=== PATIENT | male | born 1935 | race Caucasian/White ===

== ENCOUNTER 2016-11-22 17:59 | Emergency (ER) | payer MEDICARE ==
[2016-11-22] MEDS ORDERED: Acetaminophen 325 MG Tab PO ONE (18:56)
[2016-11-22] MEDS ORDERED: Sodium Chloride 0.9% 1,000 ML IV ONE (18:57)
[2016-11-22 19:41] LABS: CHLORIDE,CL 102 mmol/L (101-111); SODIUM,NA 135 mmol/L (135-145)
[2016-11-22] MEDS ORDERED: Piperacillin/Tazobactam 3.375 GM in Sodium Chloride 0.9% 100 ML IV ONE (20:01)
[2016-11-22] MEDS ORDERED: Furosemide 40 MG/4 ML VIAL IVPUSH ONE (20:01)
--- NOTE | 2016-11-22 22:11 | EDM.PDOC ---
ED HPI GENERAL MEDICAL PROBLEM - General Chief Complaint: Lower Extremity Injury/Pain Stated Complaint: COMING BY AMBULANCE Time Seen by Provider: 11/22/16 19:15 Source of Information: Reports: Patient, EMS, Family History Limitations: Reports: No Limitations - History of Present Illness INITIAL COMMENTS - FREE TEXT/NARRATIVE: c/o pain to right lower leg with increased swelling and redness. notes increase in size in area where sccraped bauer last week. Patient unable to get out of chair by himself due to pain and weakness. Temp 103.1 on admission to ED recheck and increase to 104. EMS noted unkempt conditions in home. Patient c/o cough earlier with chest pain, No pain on admission. Cough productive, yellow phlegm. Duration: Day(s): Location: Reports: Lower Extremity, Right Right Leg Pain Score (Numeric/FACES): 5 - Related Data Allergies Allergy/AdvReac Type Severity Reaction Status Date / Time No Known Allergies Allergy Verified 11/22/16 18:19 Home Meds: Home Meds Doxazosin [Cardura] 1 tab PO DAILY 09/01/14 [History] azaTHIOprine [Azathioprine] 2 tab PO DAILY 09/01/14 [History] Calcium Carbonate [Calcium] 600 mg PO BID 09/18/14 [History] Desmopressin 0.2 mg PO BEDTIME 09/18/14 [History] Multivitamin [Multivitamins] 1 each PO DAILY 09/18/14 [History] Metoprolol Tartrate [Lopressor] 25 mg PO Q12HR #60 tablet 09/19/14 [Rx] Furosemide 20 mg PO Q48H 11/22/16 [History] Warfarin Sodium [Jantoven] 1.5 tab PO ASDIRECTED 11/22/16 [History] Warfarin Sodium [Jantoven] 6 mg PO ASDIRECTED 11/22/16 [History] Past Medical History Cardiovascular History: Reports: Afib Gastrointestinal History: Reports: Cholelithiasis Other Gastrointestinal History: autoimmune hepatitis Other Genitourinary History: BPH Other Musculoskeletal History: DJD Other Hematologic History: Low platelets Other Immunologic History: autoimmune hepatitis - Past Surgical History GI Surgical History: Reports: Cholecystectomy Social & Family History - Tobacco Use Smoking Status *Q: Never Smoker Years of Tobacco use: 10 Used Tobacco, but Quit: Yes Month Tobacco Last Used: 04/18/1964 Second Hand Smoke Exposure: No - Caffeine Use Caffeine Use: Reports: Coffee, Soda - Alcohol Use Days Per Week of Alcohol Use: 0 - Recreational Drug Use Recreational Drug Use: No - Living Situation & Occupation Living situation: Reports: , with Spouse, with Family Occupation: Retired Review of Systems - Review of Systems Review Of Systems: See Below Constitutional: Reports: Fever Eyes: Reports: No Symptoms Ears: Reports: No Symptoms Nose: Reports: No Symptoms Mouth/Throat: Reports: No Symptoms Respiratory: Reports: Cough, Sputum. Denies: Shortness of Breath Cardiovascular: Reports: Chest Pain (with cough), Irregular Heart Rate (chronic) GI/Abdominal: Reports: No Symptoms Genitourinary: Reports: Incontinence (chronic) Musculoskeletal: Reports: Leg Pain Skin: Reports: Erythema, Wound Neurological: Reports: No Symptoms ED EXAM, GENERAL - Physical Exam Exam: See Below Exam Limited By: No Limitations General Appearance: Alert, Mild Distress, Obese, Other (clothing dirty, poor grooming) Eye Exam: Bilateral Eye: EOMI Ears: Normal External Exam Nose: Normal Inspection Throat/Mouth: Normal Inspection Head: Atraumatic, Normocephalic Respiratory/Chest: Decreased Breath Sounds (right), Crackles (left base). No: Wheezing, Accessory Muscle Use Cardiovascular: Irregularly Irregular GI/Abdominal: Normal Bowel Sounds Back Exam: Normal Inspection Extremities: Pedal Edema (bilateral 2+ doughy to knee on left lower extremity, right 3+ red anterio ankle to knee central pustular wound to bauer. Culture obtained, thick green brown purulent fluid. ), Leg Pain Neurological: Alert, Oriented, Normal Cognition Psychiatric: Flat Affect Skin Exam: Warm, Erythema, Wound/Incision Course - Vital Signs Last Recorded V/S: Last Vital Signs Temp 99.5 F 11/22/16 22:12 Pulse 111 H 11/22/16 22:12 Resp 15 11/22/16 22:12 BP 110/66 11/22/16 22:12 Pulse Ox 95 11/22/16 22:12 - Orders/Labs/Meds Orders: Active Orders 24 hr Category Date Time Status EKG Documentation Completion [RC] URGENT Care 11/22/16 19:04 Active CULTURE BLOOD [BC] Stat Lab 11/22/16 19:05 Received CULTURE BLOOD [BC] Stat Lab 11/22/16 19:15 Received CULTURE WOUND [RM] Stat Lab 11/22/16 19:00 Received Blood Culture x2 Reflex Set [OM.PC] Stat Oth 11/22/16 18:55 Ordered Labs: Laboratory Tests 11/22/16 11/22/16 11/22/16 Range/Units 19:05 19:05 19:05 WBC 7.7 (5.0-10.0) 10^3/uL RBC 4.66 (4.6-6.2) 10^6/uL Hgb 15.2 (14.0-18.0) g/dL Hct 43.0 (40.0-54.0) % MCV 92.3 (80-100) fL MCH 32.6 (27.0-34.0) pg MCHC 35.3 H (33.0-35.0) g/dL Plt Count 43 L* (150-450) 10^3/uL Neut % (Auto) 87.3 H (42.2-75.2) % Lymph % (Auto) 5.0 L (20.5-50.1) % Jew[place] % (Auto) 7.6 (2-8) % Eos % (Auto) 0.0 L (1.0-3.0) % Baso % (Auto) 0.1 (0.0-1.0) % PT 20.3 H (9.0-12.0) SEC INR 2.0 H (0.9-1.2) D-Dimer, Quantitative < 100 (0-400) ng/mL Sodium 135 (135-145) mmol/L Potassium 3.7 (3.6-5.0) mmol/L Chloride 102 (101-111) mmol/L Carbon Dioxide 23.0 (21.0-31.0) mmol/L Anion Gap 13.7 BUN 16 (7-18) mg/dL Creatinine 0.9 (0.6-1.3) mg/dL Est Cr Clr Drug Dosing 60.06 mL/min Estimated GFR (MDRD) > 60 BUN/Creatinine Ratio 17.77 Glucose 120 H (74-105) mg/dL Lactic Acid (0.5-2.2) mmol/L Calcium 8.2 L (8.4-10.2) mg/dl Total Bilirubin 3.9 H (0.2-1.0) mg/dL AST 30 (10-42) IU/L ALT 12 (10-60) IU/L Alkaline Phosphatase 56 (42-121) IU/L Troponin I (0.00-0.02) ng/ml B-Natriuretic Peptide 221 H (0-100) pg/ml Total Protein 6.1 L (6.7-8.2) g/dl Albumin 3.1 L (3.2-5.5) g/dl Globulin 3.0 Albumin/Globulin Ratio 1.03 Amylase 40 (28-100) U/L Lipase 31 (22-51) U/L Urine Color (YELLOW) Urine Appearance (CLEAR) Urine pH (5.0-9.0) Ur Specific [place] (1.005-1.030) Urine Protein (NEGATIVE) Urine Glucose (UA) (NEGATIVE) Urine Ketones (NEGATIVE) Urine Occult Blood (NEGATIVE) Urine Nitrite (NEGATIVE) Urine Bilirubin (NEGATIVE) Urine Urobilinogen (0.2-1.0) mg/dL Ur Leukocyte Esterase (NEGATIVE) Urine RBC /HPF Urine WBC (0-5/HPF) /HPF Ur Epithelial Cells /HPF Urine Bacteria (0-FEW/HPF) /HPF 11/22/16 11/22/16 11/22/16 Range/Units 19:05 19:05 19:10 WBC (5.0-10.0) 10^3/uL RBC (4.6-6.2) 10^6/uL Hgb (14.0-18.0) g/dL Hct (40.0-54.0) % MCV (80-100) fL MCH (27.0-34.0) pg MCHC (33.0-35.0) g/dL Plt Count (150-450) 10^3/uL Neut % (Auto) (42.2-75.2) % Lymph % (Auto) (20.5-50.1) % Jewell % (Auto) (2-8) % Eos % (Auto) (1.0-3.0) % Baso % (Auto) (0.0-1.0) % PT (9.0-12.0) SEC INR (0.9-1.2) D-Dimer, Quantitative (0-400) ng/mL Sodium (135-145) mmol/L Potassium (3.6-5.0) mmol/L Chloride (101-111) mmol/L Carbon Dioxide (21.0-31.0) mmol/L Anion Gap BUN (7-18) mg/dL Creatinine (0.6-1.3) mg/dL Est Cr Clr Drug Dosing mL/min Estimated GFR (MDRD) BUN/Creatinine Ratio Glucose (74-105) mg/dL Lactic Acid 1.7 (0.5-2.2) mmol/L Calcium (8.4-10.2) mg/dl Total Bilirubin (0.2-1.0) mg/dL AST (10-42) IU/L ALT (10-60) IU/L Alkaline Phosphatase (42-121) IU/L Troponin I 0.02 (0.00-0.02) ng/ml B-Natriuretic Peptide (0-100) pg/ml Total Protein (6.7-8.2) g/dl Albumin (3.2-5.5) g/dl Globulin Albumin/Globulin Ratio Amylase (28-100) U/L Lipase (22-51) U/L Urine Color Yellow (YELLOW) Urine Appearance Clear (CLEAR) Urine pH 7.0 (5.0-9.0) Ur Specific [place] 1.015 (1.005-1.030) Urine Protein Negative (NEGATIVE) Urine Glucose (UA) Negative (NEGATIVE) Urine Ketones Negative (NEGATIVE) Urine Occult Blood Negative (NEGATIVE) Urine Nitrite Negative (NEGATIVE) Urine Bilirubin Negative (NEGATIVE) Urine Urobilinogen 0.2 (0.2-1.0) mg/dL Ur Leukocyte Esterase Negative (NEGATIVE) Urine RBC 0-5 /HPF Urine WBC 0-5 (0-5/HPF) /HPF Ur Epithelial Cells Few /HPF Urine Bacteria Few (0-FEW/HPF) /HPF Meds: Medications Discontinued Medications Generic Name Dose Route Start Last Admin Trade Name Freq PRN Reason Stop Dose Admin Acetaminophen 650 mg 11/22/16 18:56 11/22/16 19:33 Tylenol PO 11/22/16 18:57 650 mg NOW ONE Administration Furosemide 40 mg 11/22/16 20:01 11/22/16 20:16 Lasix IVPUSH 11/22/16 20:02 40 mg NOW ONE Administration Sodium Chloride 1,000 mls @ 100 mls/hr 11/22/16 18:57 11/22/16 20:09 Normal Saline IV 11/23/16 04:56 100 mls/hr .BOLUS ONE Administration Piperacillin Sod/Tazobactam 100 mls @ 200 mls/hr 11/22/16 20:01 11/22/16 20: 19 Sod 3.375 gm/ Sodium Chloride IV 11/22/16 20:30 200 mls/hr ONETIME ONE Administration - Radiology Interpretation Free Text/Narrative:: CXR right upper lobe and left base atelectasis vs pneumonia - Re-Assessments/Exams Free Text/Narrative Re-Assessment/Exam: 11/22/16 22:13 Dr Yoon accepting of patient for further management of cellulitis and probable pneumonia Departure - Departure Time of Disposition: 22:25 Disposition: DC/Tfer to Acute Hospital 02 Condition: Fair Clinical Impression: Cellulitis and abscess of right leg CHF (congestive heart failure) Qualifiers: Congestive heart failure type: unspecified congestive heart failure type Congestive heart failure chronicity: unspecified congestive heart failure chronicity Qualified Code(s): I50.9 - Heart failure, unspecified Pneumonia Qualifiers: Pneumonia type: due to unspecified organism Laterality: bilateral Lung location : unspecified part of lung Qualified Code(s): J18.9 - Pneumonia, unspecified organism - Discharge Information Referrals: PCP,None [Primary Care Provider] - Forms: ED Department Discharge - My Orders Last 24 Hours: My Active Orders 11/22/16 18:55 Blood Culture x2 Reflex Set [OM.PC] Stat 11/22/16 19:00 CULTURE WOUND [RM] Stat 11/22/16 19:04 EKG Documentation Completion [RC] URGENT 11/22/16 19:05 CULTURE BLOOD [BC] Stat 11/22/16 19:15 CULTURE BLOOD [BC] Stat - Assessment/Plan Last 24 Hours: My Active Orders 11/22/16 18:55 Blood Culture x2 Reflex Set [OM.PC] Stat 11/22/16 19:00 CULTURE WOUND [RM] Stat 11/22/16 19:04 EKG Documentation Completion [RC] URGENT 11/22/16 19:05 CULTURE BLOOD [BC] Stat 11/22/16 19:15 CULTURE BLOOD [BC] Stat
[2016-11-22 22:13] VITALS: BP 110/66
--- NOTE | 2016-11-24 11:11 | EKG ---
11/22/2016- JAMES QUEEN - EKG per my reading shows atrial fibrillation with rapid ventricular rate around 110 to 120s. MOD /[id number]
== END 2016-11-22 22:25 ==
LOC: DL.ED 17:59
DX: I50.9 Heart failure, unspecified (principal); L03.115 Cellulitis of right lower limb; J18.9 Pneumonia, unspecified organism; I48.91 Unspecified atrial fibrillation; Z90.49 Acquired absence of other specified parts of digestive tract; Z79.899 Other long term (current) drug therapy
CPT/HCPCS: 36415; 71010; 80053; 81001; 82150; 83605; 83690; 83880; 84484; 85025; 85379; 85610; 87040; 87070; 93005; 93010; 96365; 96375; 99285; A9270; J1940; J2543; J7030; J7050; 87077; 87186

== ENCOUNTER 2018-08-28 11:14 | Inpatient (IN) | payer MEDICARE ==
[2018-08-28] MEDS ORDERED: Ondansetron 4 MG/2 ML SDV IV ONE (11:56)
[2018-08-28] MEDS ORDERED: Potassium Chloride 10 MEQ in Premix Bag 1 BAG IV ONE (11:56)
--- NOTE | 2018-08-28 12:14 | EDM.PDOC ---
ED HPI GENERAL MEDICAL PROBLEM - General Chief Complaint: General Stated Complaint: NAUSEA,VOMITTING Time Seen by Provider: 08/28/18 11:58 Source of Information: Reports: Patient History Limitations: Reports: No Limitations - History of Present Illness INITIAL COMMENTS - FREE TEXT/NARRATIVE: This 83 yo male patient was sent to the ED from the [facility] due to a potassium level of 2.8 with nausea and vomiting that started today. The patient reports he has not been eating well over the past couple of months, but does not know why he is not eating well. The patient was at [facility] today to have OT wrap his legs and to have blood work done for an appointment tomorrow. The patient was sent over here due to the potassium level and has not been seen by the provider. The patient reports there are no additional symptoms or any additional concerns at this time. The patient reports his doctor had told him that there has not been anything wrong with him during the past visits. Onset: Gradual Duration: Day(s): Location: Reports: Generalized Quality: Reports: Other Severity: Moderate Improves with: Reports: None Worsens with: Reports: None Context: Reports: Other - Related Data Allergies Allergy/AdvReac Type Severity Reaction Status Date / Time No Known Allergies Allergy Verified 11/22/16 18:19 Home Meds: Home Meds Doxazosin [Cardura] 1 tab PO DAILY 09/01/14 [History] azaTHIOprine [Azathioprine] 2 tab PO DAILY 09/01/14 [History] Calcium Carbonate [Calcium] 600 mg PO BID 09/18/14 [History] Desmopressin 0.2 mg PO BEDTIME 09/18/14 [History] Multivitamin [Multivitamins] 1 each PO DAILY 09/18/14 [History] Metoprolol Tartrate [Lopressor] 25 mg PO Q12HR #60 tablet 09/19/14 [Rx] Furosemide 20 mg PO Q48H 11/22/16 [History] Warfarin Sodium [Jantoven] 1.5 tab PO ASDIRECTED 11/22/16 [History] Warfarin Sodium [Jantoven] 6 mg PO ASDIRECTED 11/22/16 [History] Past Medical History Cardiovascular History: Reports: Afib Other Cardiovascular History: pfp with atrial septal aneurysm Gastrointestinal History: Reports: Cholelithiasis Other Gastrointestinal History: autoimmune hepatitis Genitourinary History: Reports: BPH Other Genitourinary History: BPH, noturia, bladder neck contracture,hydrocele, incontinence Other Musculoskeletal History: DJD Other Hematologic History: Low platelets Other Immunologic History: autoimmune hepatitis Dermatologic History: Reports: Cellulitis - Past Surgical History GI Surgical History: Reports: Cholecystectomy Social & Family History - Family History Family Medical History: Noncontributory - Caffeine Use Caffeine Use: Reports: Coffee, Soda - Living Situation & Occupation Living situation: Reports: , with Spouse, with Family Occupation: Retired ED ROS GENERAL - Review of Systems Review Of Systems: ROS reveals no pertinent complaints other than HPI. ED EXAM, GENERAL - Physical Exam Exam: See Below Exam Limited By: No Limitations General Appearance: Alert, WD/WN, Moderate Distress, Obese Eye Exam: Bilateral Eye: EOMI, Normal Inspection, PERRL Ears: Normal External Exam, Normal Canal, Hearing Grossly Normal, Normal TMs Nose: Normal Inspection, Normal Mucosa, No Blood Throat/Mouth: Normal Inspection, Normal Lips, Normal Teeth, Normal Gums, Normal Oropharynx, Normal Voice, No Airway Compromise Head: Atraumatic, Normocephalic Neck: Normal Inspection, Supple, Non-Tender, Full Range of Motion Respiratory/Chest: No Respiratory Distress, Lungs Clear, Normal Breath Sounds, No Accessory Muscle Use, Chest Non-Tender Cardiovascular: Normal Peripheral Pulses, Irregularly Irregular GI/Abdominal: Normal Bowel Sounds, Soft, Non-Tender, No Organomegaly, No Distention, No Abnormal Bruit, No Mass (Male) Exam: Deferred Rectal (Males) Exam: Deferred Back Exam: Normal Inspection, Full Range of Motion, NT Extremities: Pedal Edema Neurological: Alert, Oriented, CN II-XII Intact, Normal Cognition, Normal Gait, Normal Reflexes, No Motor/Sensory Deficits Psychiatric: Normal Affect, Normal Mood Skin Exam: Warm, Dry, Intact, Normal Color, No Rash Lymphatic: No Adenopathy Course - Vital Signs Last Recorded V/S: Last Vital Signs Temp 36.6 C 08/28/18 11:31 Pulse 125 H 08/28/18 11:31 Resp 16 08/28/18 11:31 BP 140/68 08/28/18 11:31 Pulse Ox 97 08/28/18 11:31 - Orders/Labs/Meds Orders: Active Orders 24 hr Category Date Time Status Potassium Chloride [KCl 10 MEQ in Water 100 ML] 10 meq Med 08/28/18 11:56 Ordered Premix Bag 1 bag IV ONETIME Medication Orders Potassium Chloride 10 meq/ (Premix) 100 mls @ 100 mls/hr IV ONETIME ONE Stop: 08/28/18 12:55 Meds: Medications Generic Name Dose Route Start Last Admin Trade Name Freq PRN Reason Stop Dose Admin Potassium Chloride 10 meq/ 100 mls @ 100 mls/hr 08/28/18 11:56 Premix IV 08/28/18 12:55 ONETIME ONE Discontinued Medications Generic Name Dose Route Start Last Admin Trade Name Freq PRN Reason Stop Dose Admin Ondansetron HCl 4 mg 08/28/18 11:56 Zofran IV 08/28/18 11:57 ONETIME ONE Departure - Departure Time of Disposition: 12:16 Disposition: Admitted As Inpatient 66 Condition: Fair Clinical Impression: Hypokalemia Nausea & vomiting Qualifiers: Vomiting type: unspecified Vomiting Intractability: non-intractable Qualified Code(s): R11.2 - Nausea with vomiting, unspecified - Discharge Information *PRESCRIPTION DRUG MONITORING PROGRAM REVIEWED*: Not Applicable *COPY OF PRESCRIPTION DRUG MONITORING REPORT IN PATIENT RAMAKRISHNA: Not Applicable Care Plan Goals: Discussed the examination, history, lab results and treatments with Dr. Parnell. Dr. Parnell accepted the patient for continued evaluation and management as an observation patient at [facility]. - My Orders Last 24 Hours: My Active Orders 08/28/18 11:56 Potassium Chloride [KCl 10 MEQ in Water 100 ML] 10 meq Premix Bag 1 bag IV ONETIME - Assessment/Plan Last 24 Hours: My Active Orders 08/28/18 11:56 Potassium Chloride [KCl 10 MEQ in Water 100 ML] 10 meq Premix Bag 1 bag IV ONETIME
--- NOTE | 2018-08-28 13:09 | PCM.HP ---
H&P History of Present Illness - General Date of Service: 08/28/18 Admit Problem/Dx: Admission Diagnosis/Problem Admission Diagnosis/Problem Abdominal pain Source of Information: Patient - History of Present Illness Initial Comments - Free Text/Narative: 83-year-old gentleman who presented with hypokalemia. The patient has a history of atrial fibrillation, chronic anticoagulation for A. fib, urinary retention, autoimmune hepatitis, significant lower extremity edema. The patient has been with lymphedema wraps with diuretics including Lasix and the Zaroxolyn. He reports good resolution of his previously significant edema. He has been feeling somewhat weak. On the day of admission the patient had an episode of nausea and small vomiting. He went to clinic for a scheduled left test prior to his scheduled clinic visit He was noted to have significant hypokalemia and was referred to the emergency room. He denies chest pain, urinary burning, palpitation. - Related Data Allergies/Adverse Reactions: Allergies Allergy/AdvReac Type Severity Reaction Status Date / Time No Known Allergies Allergy Verified 11/22/16 18:19 Home Medications: Home Meds Doxazosin [Cardura] 1 tab PO DAILY 09/01/14 [History] azaTHIOprine [Azathioprine] 2 tab PO DAILY 09/01/14 [History] Calcium Carbonate [Calcium] 600 mg PO BID 09/18/14 [History] Desmopressin 0.2 mg PO BEDTIME 09/18/14 [History] Multivitamin [Multivitamins] 1 each PO DAILY 09/18/14 [History] Metoprolol Tartrate [Lopressor] 25 mg PO Q12HR #60 tablet 09/19/14 [Rx] Furosemide 20 mg PO Q48H 11/22/16 [History] Warfarin Sodium [Jantoven] 1.5 tab PO ASDIRECTED 11/22/16 [History] Warfarin Sodium [Jantoven] 6 mg PO ASDIRECTED 11/22/16 [History] Past Medical History Cardiovascular History: Reports: Afib Other Cardiovascular History: pfp with atrial septal aneurysm Gastrointestinal History: Reports: Cholelithiasis Other Gastrointestinal History: autoimmune hepatitis Genitourinary History: Reports: BPH Other Genitourinary History: BPH, noturia, bladder neck contracture,hydrocele, incontinence Other Musculoskeletal History: DJD Other Hematologic History: Low platelets Other Immunologic History: autoimmune hepatitis Dermatologic History: Reports: Cellulitis - Past Surgical History GI Surgical History: Reports: Cholecystectomy Social & Family History - Family History Family Medical History: Noncontributory - Tobacco Use Smoking Status *Q: Former Smoker Used Tobacco, but Quit: Yes Month/Year Tobacco Last Used: 04/1959 - Caffeine Use Caffeine Use: Reports: Coffee, Soda - Recreational Drug Use Recreational Drug Use: No - Living Situation & Occupation Living situation: Reports: , with Spouse, with Family Occupation: Retired H&P Review of Systems - Review of Systems: Review Of Systems: See Below General: Reports: Weakness, Fatigue. Denies: Fever, Chills Pulmonary: Denies: Shortness of Breath Cardiovascular: Reports: Edema (Resolved with lymphedema wraps and diuretics). Denies: Chest Pain Gastrointestinal: Reports: Nausea. Denies: Abdominal Pain Genitourinary: Denies: Dysuria Psychiatric: Denies: Confusion Exam - Exam Exam: See Below - Vital Signs Vital Signs: Last Vital Signs Temp 36.6 C 08/28/18 11:31 Pulse 104 H 08/28/18 12:21 Resp 16 08/28/18 11:31 BP 105/45 L 08/28/18 12:21 Pulse Ox 97 08/28/18 11:31 Weight: 104.054 kg - Exam General: Alert, Oriented Neck: Supple Lungs: Clear to Auscultation, Normal Respiratory Effort Cardiovascular: Irregular Rhythm GI/Abdominal Exam: Normal Bowel Sounds, Soft, Non-Tender Extremities: Pedal Edema (Trace bilateral) - Patient Data Leoncio Results Last 24 hrs: Laboratory results were reviewed from [facility] White blood cell count 4.6, hemoglobin 15.6, it was 12.3 a month ago, platelet count 66 which has been about the same B UN 16, creatinine 1.3 which is up from 1.0 0.9, potassium 2.8 down from 3.8 Sodium 144, chloride 101 - Problem List (1) Atrial fibrillation SNOMED Code(s): 66878157 ICD Code: I48.91 - UNSPECIFIED ATRIAL FIBRILLATION Status: Acute Current Visit: Yes (2) Hypokalemia SNOMED Code(s): 02227603 ICD Code: E87.6 - HYPOKALEMIA Status: Acute Current Visit: No (3) Nausea & vomiting SNOMED Code(s): 98921315 ICD Code: R11.2 - NAUSEA WITH VOMITING, UNSPECIFIED Status: Acute Current Visit: No Qualifiers: Vomiting type: unspecified Vomiting Intractability: non-intractable Qualified Code(s): R11.2 - Nausea with vomiting, unspecified (4) Autoimmune hepatitis SNOMED Code(s): 660857144 ICD Code: K75.4 - AUTOIMMUNE HEPATITIS Status: Chronic Current Visit: No (5) Thrombocytopenia SNOMED Code(s): 803354246 ICD Code: D69.6 - THROMBOCYTOPENIA, UNSPECIFIED Status: Chronic Current Visit: No Problem List Initiated/Reviewed/Updated: Yes Orders Last 24hrs: Active Orders 24 hr Category Date Time Status OT Evaluation and Treatment [CONS] Routine Cons 08/28/18 13:02 Ordered PT Evaluation and Treatment [CONS] Routine Cons 08/28/18 13:02 Ordered BASIC METABOLIC PANEL,BMP [CHEM] AM Lab 08/29/18 05:15 Ordered CBC WITH AUTO DIFF [HEME] AM Lab 08/29/18 05:15 Ordered Potassium Chloride [KCl 10 MEQ in Water 100 ML] 10 meq Med 08/28/18 13:15 Ordered Premix Bag 1 bag IV .Q2H Potassium Chloride [Klor-Con 10] Med 08/28/18 21:00 Ordered 40 meq PO BEDTIME Sodium Chloride 0.9% @ 50 MLS/HR(250ml) Med 08/28/18 13:15 Ordered Sodium Chloride 0.9% [Normal Saline] 250 ml IV ASDIRECTED Medication Orders Potassium Chloride 10 meq/ (Premix) 100 mls @ 50 mls/hr IV .Q2H YOANNA Potassium Chloride (Klor-Con 10) 40 meq PO BEDTIME YOANNA Assessment/Plan Comment:: Acute renal failure Likely secondary to dehydration With the use of diuretics and resolution of lower extremity edema We'll give low-dose IV fluids Hold Lasix Hold Zaroxolyn Lower extremity edema Continue lymphedema wrap Severe hypokalemia The patient was on Lasix without potassium supplement We'll replace with IV and oral supplement Recheck in the morning Atrial fibrillation Rate control with metoprolol Anticoagulation with Coumadin Chronic autoimmune hepatitis with liver cirrhosis Thrombocytopenia likely relates to this, stable Continue Imuran Generalized weakness Consult physical and occupational therapy DVT prophylaxis with full dose anticoagulation with Coumadin
[2018-08-28] MEDS ORDERED: traMADol 50 MG Tab PO PRN (13:18)
[2018-08-28] MEDS ORDERED: Acetaminophen 325 MG Tab PO PRN (13:28)
[2018-08-28] MEDS ORDERED: Sodium Chloride 0.9% 250 ML IV SCH (15:00)
[2018-08-28] MEDS: Potassium Chloride 10 MEQ in Premix Bag 1 BAG IV SCH ×3 (16:02→20:09)
[2018-08-28] MEDS ORDERED: [UNRECOGNIZED DRUG - REMARK] PO ONE (16:45)
[2018-08-28] MEDS ORDERED: Ondansetron 4 MG/2 ML SDV IVPUSH PRN (18:00)
[2018-08-28] MEDS ORDERED: Ondansetron 4 MG Tab.DIS PO PRN (18:00)
[2018-08-28] MEDS: Potassium Chloride 10 MEQ Tab.ER PO SCH (20:48)
[2018-08-28] MEDS: Nystatin Topical Powder 30 GM Bottle TOP SCH (20:49)
[2018-08-28] MEDS: Metoprolol Tartrate 25 MG Tab PO SCH (20:49)
[2018-08-28] MEDS: Tolterodine 2 MG Cap.ER PO SCH (20:49)
[2018-08-28] MEDS ORDERED: Zolpidem 5 MG Tab PO PRN (21:00)
[2018-08-28] MEDS: Sodium Chloride 0.9% 1,000 ML IV SCH (23:07)
[2018-08-29] MEDS: Pantoprazole 40 MG Tab.CR PO SCH (05:46)
[2018-08-29 07:06] LABS: ANION GAP 13.1; CHLORIDE,CL 102 mmol/L (101-111); SODIUM,NA 138 mmol/L (135-145)
[2018-08-29] MEDS: Sodium Chloride 0.9% 1,000 ML IV SCH (07:15)
[2018-08-29] MEDS: Metoprolol Tartrate 25 MG Tab PO SCH ×2 (08:45→20:00)
[2018-08-29] MEDS: Nystatin Topical Powder 30 GM Bottle TOP SCH ×4 (08:45→20:01)
[2018-08-29] MEDS: Doxazosin 2 MG Tab PO SCH (08:45)
[2018-08-29] MEDS: Multivitamins,Therapeutic Tab PO SCH (08:45)
[2018-08-29] MEDS ORDERED: Potassium Chloride 10 MEQ Tab.ER PO ONE (12:15)
--- NOTE | 2018-08-29 12:20 | PCM.PN ---
- General Info Date of Service: 08/29/18 Admission Dx/Problem (Free Text): Admission Diagnosis/Problem Admission Diagnosis/Problem Abdominal pain Subjective Update: Feeling okay. Had significant need for multiple bathing. Difficulty containing urination in the urinal or even in diaper. No associated abdominal pain, no fever or chills. No chest pain. No shortness of breath. Foul-smelling urine. Functional Status: Reports: Pain Controlled, Tolerating Diet - Review of Systems General: Denies: Fever Pulmonary: Denies: Shortness of Breath Cardiovascular: Denies: Chest Pain Gastrointestinal: Denies: Abdominal Pain Genitourinary: Denies: Dysuria - Patient Data Vitals - Most Recent: Last Vital Signs Temp 36.4 C 08/29/18 08:58 Pulse 97 08/29/18 08:58 Resp 20 08/29/18 08:58 BP 106/54 L 08/29/18 08:58 Pulse Ox 98 08/29/18 08:58 Weight - Most Recent: 103.419 kg I&O - Last 24 Hours: Intake & Output 08/28/18 08/29/18 08/29/18 22:59 06:59 14:59 Intake Total 300 Balance 300 Lab Results Last 24 Hours: Laboratory Results - last 24 hr 08/28/18 08/28/18 08/29/18 Range/Units 15:33 17:25 06:28 WBC 4.3 L (5.0-10.0) 10^3/uL RBC 4.32 L (4.6-6.2) 10^6/uL Hgb 14.5 (14.0-18.0) g/dL Hct 40.8 (40.0-54.0) % MCV 94.4 (80-100) fL MCH 33.6 (27.0-34.0) pg MCHC 35.5 H (33.0-35.0) g/dL Plt Count 65 L (150-450) 10^3/uL Neut % (Auto) 66.2 (42.2-75.2) % Lymph % (Auto) 18.5 L (20.5-50.1) % [place] % (Auto) 12.3 H (2-8) % Eos % (Auto) 2.5 (1.0-3.0) % Baso % (Auto) 0.5 (0.0-1.0) % PT 24.8 H (9.0-12.0) SEC INR 2.6 H (0.9-1.2) Sodium (135-145) mmol/L Potassium (3.6-5.0) mmol/L Chloride (101-111) mmol/L Carbon Dioxide (21.0-31.0) mmol/L Anion Gap BUN (7-18) mg/dL Creatinine (0.6-1.3) mg/dL Est Cr Clr Drug Dosing mL/min Estimated GFR (MDRD) Glucose (74-105) mg/dL Calcium (8.4-10.2) mg/dl Urine Color Yellow (YELLOW) Urine Appearance Turbid (CLEAR) Urine pH >= 9.0 (5.0-9.0) Ur Specific [place] 1.010 (1.005-1.030) Urine Protein 100 H (NEGATIVE) Urine Glucose (UA) Negative (NEGATIVE) Urine Ketones Negative (NEGATIVE) Urine Occult Blood Moderate H (NEGATIVE) Urine Nitrite Negative (NEGATIVE) Urine Bilirubin Negative (NEGATIVE) Urine Urobilinogen >=8.0 H (0.2-1.0) mg/dL Ur Leukocyte Esterase Moderate H (NEGATIVE) Urine RBC 0-5 /HPF Urine WBC 0-5 (0-5/HPF) /HPF Ur Epithelial Cells Rare /HPF Urine Bacteria Many H (0-FEW/HPF) /HPF 08/29/18 08/29/18 Range/Units 06:28 06:28 WBC (5.0-10.0) 10^3/uL RBC (4.6-6.2) 10^6/uL Hgb (14.0-18.0) g/dL Hct (40.0-54.0) % MCV (80-100) fL MCH (27.0-34.0) pg MCHC (33.0-35.0) g/dL Plt Count (150-450) 10^3/uL Neut % (Auto) (42.2-75.2) % Lymph % (Auto) (20.5-50.1) % [place] % (Auto) (2-8) % Eos % (Auto) (1.0-3.0) % Baso % (Auto) (0.0-1.0) % PT 26.1 H (9.0-12.0) SEC INR 2.7 H (0.9-1.2) Sodium 138 (135-145) mmol/L Potassium 3.1 L (3.6-5.0) mmol/L Chloride 102 (101-111) mmol/L Carbon Dioxide 26.0 (21.0-31.0) mmol/L Anion Gap 13.1 BUN 21 H (7-18) mg/dL Creatinine 1.0 (0.6-1.3) mg/dL Est Cr Clr Drug Dosing 54.17 mL/min Estimated GFR (MDRD) > 60 Glucose 129 H (74-105) mg/dL Calcium 8.2 L (8.4-10.2) mg/dl Urine Color (YELLOW) Urine Appearance (CLEAR) Urine pH (5.0-9.0) Ur Specific [place] (1.005-1.030) Urine Protein (NEGATIVE) Urine Glucose (UA) (NEGATIVE) Urine Ketones (NEGATIVE) Urine Occult Blood (NEGATIVE) Urine Nitrite (NEGATIVE) Urine Bilirubin (NEGATIVE) Urine Urobilinogen (0.2-1.0) mg/dL Ur Leukocyte Esterase (NEGATIVE) Urine RBC /HPF Urine WBC (0-5/HPF) /HPF Ur Epithelial Cells /HPF Urine Bacteria (0-FEW/HPF) /HPF Leoncio Results Last 24 Hours: Microbiology 08/28/18 17:25 Urine Culture - Preliminary Urine, Clean Catch Med Orders - Current: Current Medications Acetaminophen (Tylenol) 650 mg PO Q4HR PRN PRN Reason: Pain (Mild 1-3)/fever Azathioprine (Imuran) 100 mg PO DAILY [facility] Last Admin: 08/29/18 08:45 Dose: 100 mg Doxazosin Mesylate (Cardura) 1 mg PO DAILY [facility] Last Admin: 08/29/18 08:45 Dose: 1 mg Ceftriaxone Sodium 1 gm/ (Sodium Chloride) 50 mls @ 50 mls/hr IV Q24H [facility] Metoprolol Tartrate (Lopressor) 25 mg PO BID [facility] Last Admin: 08/29/18 08:45 Dose: 25 mg Multivitamins (Thera) 1 each PO DAILY [facility] Last Admin: 08/29/18 08:45 Dose: 1 each Nystatin (Nystop) 0 gm TOP TID [facility] Last Admin: 08/29/18 08:45 Dose: 1 applic Ondansetron HCl (Zofran Odt) 4 mg PO Q6HR PRN PRN Reason: nausea, able to take PO Ondansetron HCl (Zofran) 4 mg IVPUSH Q4HR PRN PRN Reason: Nausea/Vomiting, can't do PO Pantoprazole Sodium (Protonix) 40 mg PO ACBREAKFAST [facility] Last Admin: 08/29/18 05:46 Dose: 40 mg Potassium Chloride (Klor-Con 10) 40 meq PO BEDTIME [facility] Last Admin: 08/28/18 20:48 Dose: 40 meq Potassium Chloride (Klor-Con 10) 40 meq PO ONETIME ONE Stop: 08/29/18 12:06 Sodium Chloride (Saline Flush) 10 ml FLUSH ASDIRECTED PRN PRN Reason: Keep Vein Open Tolterodine Tartrate (Detrol La 24 Hr) 2 mg PO BEDTIME [facility] Last Admin: 08/28/18 20:49 Dose: 2 mg Tramadol HCl (Ultram) 50 mg PO Q6HR PRN PRN Reason: mod or severe pain Warfarin Sodium (Pharmacy To Dose - Warfarin) 1 dose .XX ASDIRECTED [facility] Warfarin Sodium (Coumadin) 5 mg PO ONETIME ONE Stop: 08/29/18 14:01 Warfarin Sodium (Coumadin) 4 mg PO ONETIME ONE Stop: 08/29/18 14:01 Zolpidem Tartrate (Ambien) 5 mg PO BEDTIME PRN PRN Reason: Sleep Discontinued Medications Potassium Chloride 10 meq/ (Premix) 100 mls @ 100 mls/hr IV ONETIME ONE Stop: 08/28/18 12:55 Last Infusion: 08/28/18 19:10 Dose: Infused Potassium Chloride 10 meq/ (Premix) 100 mls @ 50 mls/hr IV Q2HR [facility] Stop: 08/28/18 21:59 Last Infusion: 08/28/18 22:15 Dose: Infused Sodium Chloride (Normal Saline) 250 mls @ 50 mls/hr IV ASDIRECTED [facility] Last Infusion: 08/28/18 22:15 Dose: Infused Sodium Chloride (Normal Saline) 1,000 mls @ 125 mls/hr IV ASDIRECTED [facility] Last Admin: 08/29/18 07:15 Dose: 125 mls/hr No Dose Of (Warfarin Today ) 0 each PO ONETIME ONE Stop: 08/28/18 16:46 Last Admin: 08/28/18 16:45 Dose: Not Given Ondansetron HCl (Zofran) 4 mg IV ONETIME ONE Stop: 08/28/18 11:57 Last Admin: 08/28/18 12:18 Dose: 4 mg Peppermint (Peppermint Oil) 0 ml MUCMEM ONETIME ONE Stop: 08/28/18 19:57 Last Admin: 08/28/18 20:47 Dose: 1 applic - Exam General: Alert, Oriented Neck: Supple Lungs: Clear to Auscultation, Normal Respiratory Effort Cardiovascular: Regular Rate, Regular Rhythm Extremities: Pedal Edema (Minimal bilateral) Skin: Warm, Other (Yeasty rash in groin areas) - Problem List & Annotations (1) Atrial fibrillation SNOMED Code(s): 24926886 Code(s): I48.91 - UNSPECIFIED ATRIAL FIBRILLATION Status: Acute Current Visit: Yes (2) Hypokalemia SNOMED Code(s): 29083454 Code(s): E87.6 - HYPOKALEMIA Status: Acute Current Visit: No (3) Nausea & vomiting SNOMED Code(s): 43142106 Code(s): R11.2 - NAUSEA WITH VOMITING, UNSPECIFIED Status: Acute Current Visit: No Qualifiers: Vomiting type: unspecified Vomiting Intractability: non-intractable Qualified Code(s): R11.2 - Nausea with vomiting, unspecified (4) Autoimmune hepatitis SNOMED Code(s): 717755818 Code(s): K75.4 - AUTOIMMUNE HEPATITIS Status: Chronic Current Visit: No (5) Thrombocytopenia SNOMED Code(s): 384129809 Code(s): D69.6 - THROMBOCYTOPENIA, UNSPECIFIED Status: Chronic Current Visit: No - Problem List Review Problem List Initiated/Reviewed/Updated: Yes - My Orders Last 24 Hours: My Active Orders 08/28/18 13:02 OT Evaluation and Treatment [CONS] Routine PT Evaluation and Treatment [CONS] Routine 08/28/18 13:18 traMADol [Ultram] 50 mg PO Q6HR PRN 08/28/18 13:27 OT Evaluation and Treatment [CONS] Routine 08/28/18 13:28 Patient Status [ADT] Routine Oxygen Therapy [RC] PRN Up With Assistance [RC] ASDIRECTED VTE/DVT Education [RC] PER UNIT ROUTINE Vital Signs [RC] 04,08,12,16,20 Acetaminophen [Tylenol] 650 mg PO Q4HR PRN Sodium Chloride 0.9% [Saline Flush] 10 ml FLUSH ASDIRECTED PRN Peripheral IV Insertion Adult [OM.PC] Routine Resuscitation Status Routine 08/28/18 13:29 Peripheral IV Care [RC] 09,21 08/28/18 13:30 Pharmacy to Dose - Warfarin 1 dose .XX ASDIRECTED 08/28/18 17:25 CULTURE URINE [RM] Routine 08/28/18 18:00 Ondansetron [Zofran ODT] 4 mg PO Q6HR PRN Ondansetron [Zofran] 4 mg IVPUSH Q4HR PRN 08/28/18 21:00 Metoprolol Tartrate [Lopressor] 25 mg PO BID Nystatin [Nystop] 0 gm TOP TID Potassium Chloride [Klor-Con 10] 40 meq PO BEDTIME Tolterodine [Detrol LA 24 Hr] 2 mg PO BEDTIME Zolpidem [Ambien] 5 mg PO BEDTIME PRN 08/28/18 Dinner Regular Diet [DIET] 08/29/18 06:00 Pantoprazole [ProTONIX] 40 mg PO ACBREAKFAST 08/29/18 09:00 Doxazosin [Cardura] 1 mg PO DAILY Multivitamins,Therapeutic [Thera] 1 each PO DAILY azaTHIOprine [Imuran] 100 mg PO DAILY 08/29/18 12:05 Potassium Chloride [Klor-Con 10] 40 meq PO ONETIME ONE 08/29/18 12:15 cefTRIAXone [Rocephin] 1 gm Sodium Chloride 0.9% [Normal Saline] 50 ml IV Q24H 08/29/18 14:00 Warfarin [Coumadin] 4 mg PO ONETIME ONE Warfarin [Coumadin] 5 mg PO ONETIME ONE 08/30/18 06:00 INR,PT,PROTHROMBIN TIME [COAG] DAILY 08/31/18 06:00 INR,PT,PROTHROMBIN TIME [COAG] DAILY 09/01/18 06:00 INR,PT,PROTHROMBIN TIME [COAG] DAILY 09/02/18 06:00 INR,PT,PROTHROMBIN TIME [COAG] DAILY 09/03/18 06:00 INR,PT,PROTHROMBIN TIME [COAG] DAILY 09/04/18 06:00 INR,PT,PROTHROMBIN TIME [COAG] DAILY - Plan Plan:: Acute renal failure Likely secondary to dehydration Improved Likely due to the use of diuretics and resolution of lower extremity edema I will stop IV fluids Continue to Hold Lasix Continue to Hold Zaroxolyn Lower extremity edema Continue lymphedema wrap Severe hypokalemia The patient was on Lasix without potassium supplement Continue to replace with oral supplement Recheck in the morning Atrial fibrillation Rate control with metoprolol Anticoagulation with Coumadin Chronic autoimmune hepatitis with liver cirrhosis Thrombocytopenia likely relates to this, stable Continue Imuran Urinary tract infection UA shows above 100,000 gram-negative rods Start treatment with ceftriaxone Follow cultures Generalized weakness Consult physical and occupational therapy DVT prophylaxis with full dose anticoagulation with Coumadin
[2018-08-29] MEDS: cefTRIAXone 1 GM in Sodium Chloride 0.9% 50 ML IV SCH (13:17)
[2018-08-29] MEDS ORDERED: Warfarin 5 MG Tab PO ONE (14:00)
[2018-08-29] MEDS ORDERED: Warfarin 2 MG Tab PO ONE (14:00)
[2018-08-29] MEDS ORDERED: Lidocaine 2% Jelly 10 ML Urojet MUCMEM ONE (16:11)
[2018-08-29 16:51] LABS: BASE EXCESS ARTERIAL 4 mmol/L ((-2)-(+3)); BICARBONATE,ARTERIAL 26.6 mmol/L (22-26); O2 DELIVERY DEVICE NASAL CANNULA; O2 SATURATION ARTERIAL 96 % (95-100); PCO2 ARTERIAL 35 mmHg (35-45); PO2 ARTERIAL 75 mmHg (70-100)
[2018-08-29 16:55] LABS: O2 FLOW RATE 0
[2018-08-29] MEDS: Lactulose Soln 10 GM/15 ML 30 ML UD Cup PO SCH (19:30)
[2018-08-29] MEDS: Potassium Chloride 10 MEQ Tab.ER PO SCH ×2 (19:31→20:00)
[2018-08-29] MEDS: Tolterodine 2 MG Cap.ER PO SCH ×2 (19:31→20:00)
[2018-08-29] MEDS: Rifaximin 550 MG Tab PO SCH ×2 (19:31→20:01)
[2018-08-30] MEDS: Lactulose Soln 10 GM/15 ML 30 ML UD Cup PO SCH ×4 (00:50→17:53)
[2018-08-30] MEDS: Pantoprazole 40 MG Tab.CR PO SCH (06:15)
[2018-08-30] MEDS: Rifaximin 550 MG Tab PO SCH ×2 (08:51→21:23)
[2018-08-30] MEDS: Doxazosin 2 MG Tab PO SCH (08:52)
[2018-08-30] MEDS: Multivitamins,Therapeutic Tab PO SCH (08:52)
[2018-08-30] MEDS: Metoprolol Tartrate 25 MG Tab PO SCH ×2 (08:53→21:23)
[2018-08-30] MEDS: Nystatin Topical Powder 30 GM Bottle TOP SCH ×4 (08:54→21:23)
[2018-08-30] MEDS: Sodium Chloride 0.9% 10 ML Syringe FLUSH PRN ×2 (13:37→21:24)
[2018-08-30] MEDS: cefTRIAXone 1 GM in Sodium Chloride 0.9% 50 ML IV SCH (13:37)
[2018-08-30] MEDS ORDERED: Warfarin 5 MG Tab PO ONE (14:00)
[2018-08-30] MEDS ORDERED: Warfarin 2 MG Tab PO ONE (14:00)
--- NOTE | 2018-08-30 17:09 | US ---
Clinical history: 83-year-old male with "urethral stricture" who is unable to void. Interpretation: Midline incompletely distended (collapsed) urinary bladder with a measured volume of 83 mL that has an irregularly thickened wall. No fixed wall mass or dependent mobile intraluminal echogenic "stones". Normal ureteral "jets" demonstrated by bead wire taper bilaterally. CONCLUSION: No abnormal distention of the urinary bladder.
[2018-08-30] MEDS: Tolterodine 2 MG Cap.ER PO SCH (21:23)
[2018-08-30] MEDS: Potassium Chloride 10 MEQ Tab.ER PO SCH (21:23)
[2018-08-31] MEDS: Lactulose Soln 10 GM/15 ML 30 ML UD Cup PO SCH ×4 (00:25→17:46)
[2018-08-31] MEDS: Pantoprazole 40 MG Tab.CR PO SCH (06:08)
[2018-08-31] MEDS: Doxazosin 2 MG Tab PO SCH (08:50)
[2018-08-31] MEDS: Multivitamins,Therapeutic Tab PO SCH (08:50)
[2018-08-31] MEDS: Rifaximin 550 MG Tab PO SCH ×2 (08:50→20:53)
[2018-08-31] MEDS: Metoprolol Tartrate 25 MG Tab PO SCH ×2 (08:51→20:55)
[2018-08-31] MEDS: Nystatin Topical Powder 30 GM Bottle TOP SCH ×3 (08:51→21:01)
[2018-08-31] MEDS: cefTRIAXone 1 GM in Sodium Chloride 0.9% 50 ML IV SCH (12:26)
[2018-08-31] MEDS ORDERED: Warfarin 2 MG Tab PO ONE (14:00)
--- NOTE | 2018-08-31 14:57 | PN ---
DATE: 08/30/2018 HISTORY OF PRESENT ILLNESS: Mr. Keyes is an 83-year-old gentleman with a history of autoimmune hepatitis. On August 28, routine lab work was performed at the clinic for Dr. Nicole. Results showed a potassium of 2.8 and the patient was referred to the emergency room for further evaluation. Other lab work included a CBC, which is remarkable only for a platelet count of 66,000 and a comp profile, which was remarkable for the hypokalemia. In the emergency room, he was evaluated and was admitted for further management. He was treated initially with IV potassium and tolerated this. On the following day, however, he was noted to be lethargic. At that point, labs were ordered including LFTs and an ammonia level. He was found to have an elevated ammonia level of 121 and was started on lactulose and rifampin. An ammonia level was reordered this morning and is now 99. Other lab work this morning included his INR which is therapeutic at 2.6. Review of his clinical data shows that his appetite is good. He is tolerating 100% of his meals. He is taking fluids. He is voiding and is moving his bowels since the addition of the lactulose. Vital signs are stable. PHYSICAL EXAMINATION: General: He is lying in bed, slightly hard of hearing, slightly confused, but is able to participate in the visit, a call came in from his brother in [place], and he was given the phone call and held a long conversation with his brother. Mr. Keyes expressed no new concerns or complaints. He denies any pain. He seemed comfortable. Vital Signs: Blood pressure is 117/76, pulse 77, respiratory rate 20, oxygen saturation 98% on room air. He is afebrile. HEENT: Unremarkable. Chest: Diminished, but clear bilateral breath sounds. Heart: Regular rate and rhythm. Abdomen: Obese, soft, benign. Extremities: Wrapped in compression garments for his chronic lower extremity edema. Our plan is to continue the lactulose and rifampin. Another issue that arose has to do with his urinary function. He had been noted to be able to void, but was also incontinent. Bedside bladder ultrasound was done and then apparently an attempt was made to place a Mortensen catheter. He appears to have significant stricture within the urethra. We did have a limited retroperitoneal ultrasound performed today to assess whether he is retaining urine and he had a total volume of 83 mL in the bladder. The wall of the bladder was irregularly thickened. No masses or stones were seen. There were normal ureteral jets seen bilaterally. He will probably need a referral post hospitalization by Urology to evaluate the stricture. During today's rounds, concerns were voiced about the ability of and Mrs. Keyes to care for themselves at home. Mr. Keyes is 83. His is 85. Both of them are not in the best of health. One of his sons came in later and the foster care case manager and I talked with his son regarding some of these issues and also fact that the hospital was recommending that they go to social worker delinquency prevention and look at the [place]' eligibility for [place] [facility]. It is possible that they will need long-term care in the near future, given their general decline and now with some evidence for issues with liver failure with the presence of the elevated ammonia level. The discussion started well, but as the discussion progressed he became more and more agitated. The discussion was ended and it was made clear to him that the staff is here to help. He felt that the patient's brother in [place], who is a retired physician, might be helpful in this situation. He was talking about moving his mother and father to [place], although we do not know how practical and possible this is. At this time, we have expressed our concerns to them and given recommendations and we will wait for the family to decide how they would like to proceed. No other changes are made today. [facility] /[id number] ISHAAN
--- NOTE | 2018-08-31 14:58 | PN ---
DATE: 08/31/2018 HISTORY: Mr. Stephy Puga is an 83-year-old male with medical history significant for hypertension, hyperlipidemia, atrial fibrillation, chronic anticoagulation, urinary retention, autoimmune hepatitis; admitted to the hospital with complaints of increasing weakness and tiredness, noted to have hypokalemia, and also incidentally noted to have hyperammonemia leading to acute encephalopathic state, possible hepatic encephalopathy. For the last 24 hours, the patient was started on lactulose after which his mentation seems to be improving. He denies any chest pain. No shortness of breath. No abdominal pain. No nausea. No vomiting. No diarrhea. REVIEW OF SYSTEMS: Cardiovascular, respiratory, gastrointestinal, neurology, constitutional were all evaluated. PHYSICAL EXAMINATION: Vital Signs: Temperature of 98.2, pulse of 90, blood pressure of 100/59, respiratory rate of 20, saturating at 98% on room air. General Appearance: The patient is well oriented to time, place, and person. Follows commands spontaneously. Cardiovascular: S1, S2 heard with normal intensity. No gallops. Respiratory: Clear to auscultation bilaterally. No wheeze. No crepitations. Abdomen: Soft. Bowel sounds positive. Nontender. No rigidity. Extremities: No edema of bilateral lower extremities. Neurology: No gross focal neurological deficit. MEDICATIONS: Reviewed. Continue with: 1. Tylenol 650 every 4 hours as needed for pain and fever. 2. Imuran 100 mg daily. 3. Ceftriaxone IV daily. 4. Lactulose 20 g every 6 hours. 5. Metoprolol 25 mg twice a day. 6. Multivitamin 1 tablet daily. 7. Protonix 40 mg daily. 8. Rifaximin 550 mg twice a day. 9. Tramadol 50 mg every 6 hours as needed for pain. 10.Coumadin pharmacy to dose. LABORATORY DATA: Reviewed. INR 3. Total bilirubin 2.1. Direct bilirubin 0.5. AST 35, ALT 16, alkaline phosphatase 82, ammonia 50. Urine culture positive for Klebsiella pneumonia. ASSESSMENT: 1. Acute encephalopathy mainly hepatic encephalopathy improved with lactulose. 2. Acute hypokalemia, improved. 3. Acute renal failure, improved. 4. Urinary tract infection with Klebsiella on IV antibiotic ceftriaxone. 5. Atrial fibrillation. 6. Chronic anticoagulation with Coumadin. 7. Generalized weakness, improved. PLAN: 1. Acute hepatic encephalopathy. The patient was noted to have elevated ammonia level at the time of admission, requiring lactulose and rifaximin. Continue with lactulose for now. We will further dose adjust the medication. 2. Acute hypokalemia. The patient noted to have severe hypokalemia, requiring potassium chloride supplement. His potassium is within normal limits. We will recheck a BMP in a.m. 3. Urinary tract infection with Klebsiella pneumonia. The patient is currently on IV ceftriaxone, continue the same. We will switch him to oral antibiotic at the time of discharge. 4. Acute renal failure, much improved. He got better with IV fluids. 5. Atrial fibrillation, rate controlled. Continue with metoprolol. 6. Chronic anticoagulation. Continue with Coumadin for now. Pharmacy to dose the Coumadin for therapeutic INR of 2 to 3. [facility] /[id number]
[2018-08-31] MEDS: Tolterodine 2 MG Cap.ER PO SCH (20:52)
[2018-08-31] MEDS: Potassium Chloride 10 MEQ Tab.ER PO SCH (20:52)
[2018-08-31] MEDS: Sodium Chloride 0.9% 10 ML Syringe FLUSH PRN (21:00)
[2018-09-01] MEDS: Lactulose Soln 10 GM/15 ML 30 ML UD Cup PO SCH ×4 (01:01→19:06)
[2018-09-01] MEDS: Pantoprazole 40 MG Tab.CR PO SCH (06:00)
[2018-09-01 07:27] LABS: ANION GAP 10.3; CHLORIDE,CL 109 mmol/L (101-111); SODIUM,NA 137 mmol/L (135-145)
[2018-09-01] MEDS: Doxazosin 2 MG Tab PO SCH (08:50)
[2018-09-01] MEDS: Metoprolol Tartrate 25 MG Tab PO SCH (08:52)
[2018-09-01] MEDS: Multivitamins,Therapeutic Tab PO SCH (08:53)
[2018-09-01] MEDS: Rifaximin 550 MG Tab PO SCH (08:53)
[2018-09-01] MEDS: Nystatin Topical Powder 30 GM Bottle TOP SCH ×2 (08:57→19:06)
[2018-09-01] MEDS ORDERED: Nitrofurantoin Monohydrate/Macrocrystalline 100 MG Cap PO SCH (09:30)
[2018-09-01 11:54] VITALS: BP 104/59; PULSE 91
[2018-09-01] MEDS: Warfarin 5 MG Tab PO ONE ×2 (12:14→19:05)
[2018-09-01] MEDS: Warfarin 2 MG Tab PO ONE ×2 (12:14→19:05)
--- NOTE | 2018-09-01 14:56 | DISCH ---
ADMITTING DIAGNOSES: 1. Acute hepatic encephalopathy. 2. Severe hypokalemia. 3. Acute renal failure. 4. Generalized weakness. DISCHARGE DIAGNOSES: 1. Acute hepatic encephalopathy, improved with lactulose. 2. Acute renal failure, resolved. 3. Lower extremity edema, resume Lasix and metolazone. 4. Severe hypokalemia, improved with oral potassium chloride. 5. Atrial fibrillation, rate controlled. 6. Generalized weakness, improved. 7. Urinary tract infection. HISTORY OF PRESENTING ILLNESS: Mr. Alexei Keyes is an 83-year-old male with a medical history significant for hypertension; hyperlipidemia; atrial fibrillation; chronic anticoagulation with Coumadin; autoimmune hepatitis, on chronic immunosuppressive therapy; chronic edema to the lower extremities requiring diuretics and was admitted to the hospital with complaints of increasing weakness, tiredness, and noted to have severe hypokalemia and also noted to have possible acute renal failure as per admission diagnoses. The patient was treated with IV fluids and potassium chloride, after which his potassium is much improved. He was started on lactulose for his acute hepatic encephalopathy and rifaximin. Mentation is much improved and hepatic encephalopathy got resolved. The patient could not afford to buy the rifaximin and did not want to be prescribed rifaximin, so we did not prescribe the rifaximin to home. He will continue with the lactulose 3 times a day. We resumed his Lasix and metolazone as he is noted to have worsening edema to the lower extremities. We added potassium chloride 40 mEq daily to improve his potassium. He responded well to the treatment. He is able to ambulate. He is discharged home in stable condition. He is advised to continue with the VALERIA hose at home to improve the swelling of the lower extremities. He was also noted to have a urinary tract infection on this admission and his urine culture was growing Klebsiella pneumoniae sensitive to nitrofurantoin, so we prescribed nitrofurantoin at discharge. He is discharged home in stable condition. DISCHARGE MEDICATIONS: Include: 1. Doxazosin 4 mg daily. 2. Lasix 40 mg daily. 3. Lactulose 20 g oral 3 times daily. 4. Metoprolol 25 mg twice a day. 5. Multivitamin 1 tablet daily. 6. Nitrofurantoin 100 mg twice daily. 7. Omeprazole 20 mg daily. 8. Potassium chloride 40 mEq at bedtime. 9. Tolterodine tartrate 2 mg daily. 10.Coumadin 9 mg daily 5 days a week and 6 mg 2 days a week. 11.Imuran 100 mg daily. 12.Metolazone 2.5 mg daily. PHYSICAL EXAMINATION ON THE DAY OF DISCHARGE: Vital Signs: Temperature of 97.8, pulse of 91, blood pressure 114/62, respiratory rate of 20, saturating at 96% on room air. General Appearance: The patient is well oriented to time, place, and person. Follows commands spontaneously. Cardiovascular System: S1 and S2 heard with normal intensity. No gallops. Respiratory System: Clear to auscultation bilaterally. No wheeze. No crepitations. Abdomen: Soft. Bowel sounds positive. Nontender. No rigidity. No guarding. No rebound tenderness. Extremities: 2+ edema noted in bilateral lower extremities. Neurology: No gross focal neurological deficit. CONDITION ON ADMISSION: Poor. CONDITION ON DISCHARGE: Stable. DISPOSITION: Discharged to home. ACTIVITY: As tolerated. DIET: Cardiac healthy diet. FOLLOWUP: Follow with primary care physician in next 1 week of time. Spent over 35 minutes of time in evaluating and treating this patient and discharge planning. [facility] /[id number]
== END 2018-09-01 12:43 | disposition home or self-care (01) | DRG 640 ==
LOC: DL.ED 11:14 → DL.MS 12:49 → UNDOADMOB 12:49 → DL.MS 13:28 → OBSVTOIN 08-29 13:53 → DL.MS 08-29 19:59
PROVIDERS: ADMIT Internal Medicine; ATTEND Internal Medicine
DX: E87.6 Hypokalemia (principal); K72.00 Acute and subacute hepatic failure without coma; N39.0 Urinary tract infection, site not specified; E72.20 Disorder of urea cycle metabolism, unspecified; R11.2 Nausea with vomiting, unspecified; Z79.01 Long term (current) use of anticoagulants; I10 Essential (primary) hypertension; E78.5 Hyperlipidemia, unspecified; B96.1 Klebsiella pneumoniae [K. pneumoniae] as the cause of diseases classified elsewhere; Z87.891 Personal history of nicotine dependence; N40.0 Benign prostatic hyperplasia without lower urinary tract symptoms; Z79.899 Other long term (current) drug therapy; D69.6 Thrombocytopenia, unspecified; E86.0 Dehydration; I48.91 Unspecified atrial fibrillation; K75.4 Autoimmune hepatitis; N40.1 Benign prostatic hyperplasia with lower urinary tract symptoms; N39.498 Other specified urinary incontinence; N13.8 Other obstructive and reflux uropathy; R35.1 Nocturia; N43.3 Hydrocele, unspecified; M19.90 Unspecified osteoarthritis, unspecified site; Z90.49 Acquired absence of other specified parts of digestive tract
CPT/HCPCS: 36415 ×2; 80048; 81001; 85025; 85610 ×2; 87086; 87088; 87186; 96361 ×2; 96365; 96366; 96367; 96375; 97162; 97165; 99218; 99284; 99285; A4217 ×4; A9270 ×11; G0378 ×2; J0696; J2405; J3480 ×4; J7030 ×2; J7050 ×2; J7500; 36600; 70450; 76857; 80076; 82140; 82803; 83735; 84100; 85027; 97140-GO

== ENCOUNTER 2019-01-21 16:54 | Emergency (ER) | payer MEDICARE ==
[2019-01-21 17:21] VITALS: BP 129/81; PULSE 106
--- NOTE | 2019-01-21 17:26 | EDM.PDOC ---
"ED HPI GENERAL MEDICAL PROBLEM - General Source of Information: Reports: Patient, Family History Limitations: Reports: Other (hearing impairment ) <Sary Clifton - Last Filed: 01/21/19 17:57> Headache Pain Score (Numeric/FACES): 3 <HersonFranco Tadeo - Last Filed: 01/21/19 18:06> - General Chief Complaint: Trauma Stated Complaint: DIZZY/FELL THREE TIMES Time Seen by Provider: 01/21/19 17:26 - History of Present Illness INITIAL COMMENTS - FREE TEXT/NARRATIVE: Patient is an 83 year old male with hx of atrial fibrillation (on warfarin) presenting for multiple falls in the past 3 days and striking his head (latest today). Patient and family cannot tell whether he is taking his warfarin or not. The falls have been accompanied with prodromal symptoms. When he stands up and turns he feels lightheaded and falls. He has struck his head but denies LOC or bleeding from anywhere. His only pain complaint is feeling sore on the right side where he landed on. Denies nausea, vomiting, or any other complaints. states that his abdomen is more distended than usual. He denies ETOH consumption for a long time, drug use, or cigarettes. GCS 15 on arrival. No c-collar was indicated based on history and exam. Patient arrived by private vehicle and was converted to trauma chart when it was determined that he was anticoagulated and had struck his head in the past 24 hours. (EtienneSary) - Related Data Allergies Allergy/AdvReac Type Severity Reaction Status Date / Time No Known Allergies Allergy Verified 01/21/19 17:09 Home Meds: Home Meds Doxazosin [Cardura] 4 mg PO DAILY 09/01/14 [History] Multivitamin [Multivitamins] 1 each PO DAILY 09/18/14 [History] Metoprolol Tartrate [Lopressor] 25 mg PO Q12HR #60 tablet 09/19/14 [Rx] Warfarin Sodium [Jantoven] 6 mg PO DAILY 11/22/16 [History] Warfarin Sodium [Jantoven] 9 mg PO DAILY 11/22/16 [History] Furosemide 40 mg PO DAILY 08/28/18 [History] Omeprazole 20 mg PO DAILY 08/28/18 [History] Tolterodine Tartrate [Tolterodine Tartrate ER] 2 mg PO DAILY 08/28/18 [History] azaTHIOprine [Imuran] 100 mg PO DAILY 08/28/18 [History] metOLazone [Metolazone] 2.5 mg PO DAILY 08/28/18 [History] Lactulose [Cephulac] 20 gm PO TID 30 Days #90 cup 09/01/18 [Rx] Nitrofurantoin [place]/Macrocryst [Nitrofurantoin [place]-MCR] 100 mg PO BID 7 Days # 7 cap 09/01/18 [Rx] Potassium Chloride [Klor-Con 10] 40 meq PO BEDTIME 30 Days #30 tab.er 09/01/18 [ Rx] Past Medical History HEENT History: Reports: Hard of Hearing, Impaired Vision Cardiovascular History: Reports: Afib Other Cardiovascular History: pfp with atrial septal aneurysm Respiratory History: Reports: None Gastrointestinal History: Reports: Cholelithiasis Other Gastrointestinal History: autoimmune hepatitis Genitourinary History: Reports: BPH Other Genitourinary History: BPH, noturia, bladder neck contracture,hydrocele, incontinence Other Musculoskeletal History: DJD Neurological History: Reports: None Psychiatric History: Reports: None Endocrine/Metabolic History: Reports: None Other Hematologic History: Low platelets Other Immunologic History: autoimmune hepatitis Oncologic (Cancer) History: Reports: None Dermatologic History: Reports: Cellulitis - Infectious Disease History Infectious Disease History: Reports: Hepatitis C - Past Surgical History GI Surgical History: Reports: Cholecystectomy <Sary Clifton - Last Filed: 01/21/19 17:57> Social & Family History - Family History Family Medical History: Noncontributory - Caffeine Use Caffeine Use: Reports: Coffee, Soda - Living Situation & Occupation Living situation: Reports: , with Spouse, with Family Occupation: Retired <EtienneSary - Last Filed: 01/21/19 17:57> Review of Systems - Review of Systems Review Of Systems: ROS reveals no pertinent complaints other than HPI. <EtienneSary - Last Filed: 01/21/19 17:57> ED EXAM, GENERAL - Physical Exam Exam: See Below Exam Limited By: Other (hearing impairment) General Appearance: Alert, No Apparent Distress, Other (malodorous and disheveled ) Eye Exam: Bilateral Eye: EOMI, PERRL Ears: Normal External Exam, Normal Canal, Hearing Loss Nose: Normal Inspection Throat/Mouth: Normal Lips, Normal Oropharynx, No Airway Compromise Head: Atraumatic, Normocephalic, Other (nontender to firm palpation around the skull) Neck: Supple, Non-Tender, Full Range of Motion, Other (c-spine was cleared by exam and history. ) Respiratory/Chest: No Respiratory Distress, Lungs Clear, No Accessory Muscle Use Cardiovascular: Irregularly Irregular (normal rhythm ), Other GI/Abdominal: Soft, Non-Tender, Distended (Male) Exam: Deferred Rectal (Males) Exam: Deferred Extremities: Other (normal upper extremities, both legs are wrapped.) Neurological: Alert, Oriented, CN II-XII Intact, No Motor/Sensory Deficits, Other (GCS 15 at 1 hour from arrival (time of transfer)) Psychiatric: Normal Affect, Normal Mood Skin Exam: Dry, Normal Color <Sary Clifton - Last Filed: 01/21/19 17:57> Course <CliftonSary - Last Filed: 01/21/19 17:57> <Franco Bains - Last Filed: 01/21/19 18:06> - Vital Signs Last Recorded V/S: Last Vital Signs Temp 98.1 F 01/21/19 16:58 Pulse 106 H 01/21/19 16:58 Resp 18 01/21/19 16:58 BP 129/81 01/21/19 16:58 Pulse Ox 100 01/21/19 16:58 - Orders/Labs/Meds Orders: Active Orders 24 hr Category Date Time Status EKG 12 Lead [EKG Documentation Completion] [RC] STAT Care 01/21/19 17:00 Active Head wo Cont [CT] Urgent Exams 01/21/19 17:20 Taken UA RFX MYRON AND CULT IF INDIC [URIN] Stat Lab 01/21/19 17:02 Ordered Labs: Laboratory Tests 01/21/19 01/21/19 01/21/19 Range/Units 17:17 17:17 17:17 WBC 3.1 L (5.0-10.0) 10^3/uL RBC 3.57 L (4.6-6.2) 10^6/uL Hgb 12.5 L D (14.0-18.0) g/dL Hct 36.4 L (40.0-54.0) % MCV 102.0 H D (80-100) fL MCH 35.0 H (27.0-34.0) pg MCHC 34.3 (33.0-35.0) g/dL Plt Count 56 L (150-450) 10^3/uL Neut % (Auto) 56.0 (42.2-75.2) % Lymph % (Auto) 25.8 (20.5-50.1) % [place] % (Auto) 10.8 H (2-8) % Eos % (Auto) 6.4 H (1.0-3.0) % Baso % (Auto) 1.0 (0.0-1.0) % PT 18.6 H D (9.0-12.0) SEC INR 1.9 H (0.9-1.2) Sodium 140 (135-145) mmol/L Potassium 4.1 (3.6-5.0) mmol/L Chloride 111 (101-111) mmol/L Carbon Dioxide 25.0 (21.0-31.0) mmol/L Anion Gap 8.1 BUN 12 (7-18) mg/dL Creatinine 0.7 (0.6-1.3) mg/dL Est Cr Clr Drug Dosing 74.69 mL/min Estimated GFR (MDRD) > 60 BUN/Creatinine Ratio 17.14 Glucose 111 H (74-105) mg/dL Calcium 8.1 L (8.4-10.2) mg/dl Total Bilirubin 2.3 H (0.2-1.0) mg/dL AST 24 (10-42) IU/L ALT 12 (10-60) IU/L Alkaline Phosphatase 77 (42-121) IU/L Ammonia (11-35) umol/L B-Natriuretic Peptide 164 H (0-100) pg/ml Total Protein 5.9 L (6.7-8.2) g/dl Albumin 3.0 L (3.2-5.5) g/dl Globulin 2.9 Albumin/Globulin Ratio 1.03 01/21/19 Range/Units 17:17 WBC (5.0-10.0) 10^3/uL RBC (4.6-6.2) 10^6/uL Hgb (14.0-18.0) g/dL Hct (40.0-54.0) % MCV (80-100) fL MCH (27.0-34.0) pg MCHC (33.0-35.0) g/dL Plt Count (150-450) 10^3/uL Neut % (Auto) (42.2-75.2) % Lymph % (Auto) (20.5-50.1) % [place] % (Auto) (2-8) % Eos % (Auto) (1.0-3.0) % Baso % (Auto) (0.0-1.0) % PT (9.0-12.0) SEC INR (0.9-1.2) Sodium (135-145) mmol/L Potassium (3.6-5.0) mmol/L Chloride (101-111) mmol/L Carbon Dioxide (21.0-31.0) mmol/L Anion Gap BUN (7-18) mg/dL Creatinine (0.6-1.3) mg/dL Est Cr Clr Drug Dosing mL/min Estimated GFR (MDRD) BUN/Creatinine Ratio Glucose (74-105) mg/dL Calcium (8.4-10.2) mg/dl Total Bilirubin (0.2-1.0) mg/dL AST (10-42) IU/L ALT (10-60) IU/L Alkaline Phosphatase (42-121) IU/L Ammonia 60 H (11-35) umol/L B-Natriuretic Peptide (0-100) pg/ml Total Protein (6.7-8.2) g/dl Albumin (3.2-5.5) g/dl Globulin Albumin/Globulin Ratio - Radiology Interpretation Free Text/Narrative:: [facility] Final Radiology Report Call: [phone] assistance Online chat: [email or web address] Name: JAMES QUEEN Age: 83Years M Date: 01/21/2019 SSN: -- : [id number] Study: CT HEAD WO Requesting Physician: FRANCO BAINS Images: [id number] Addl Studies: Provided Clinical History: Contrast: Without Contrast Medium: Contrast Amount: Contrast Method: Page 1 of 2 PROCEDURE INFORMATION: Exam: CT Head Without Contrast Exam date and time: 01/21/2019 5:37 PM Clinical history: 83 years old, male; Other: Fall, hi t head--recent falls lately TECHNIQUE: Imaging protocol: Computed tomography of the head without contrast. Radiation optimization: All CT scans at this facility use at least one of these dose optimization techniques: automated exposure control; mA and/or kV adjustment per patient size (includes targeted exams where dose is matched to clinical indication); or iterative reconstruction. COMPARISON: CT Head wo Cont 08/29/2018 6:15 PM FINDINGS: Brain: Large acute/subacute right subdural hematoma causing moderate mass effect upon the right cerebral hemisphere. There is a midline shift from [id number] of approximately 10 mm. Central as well as cortical atrophy Ventricles: Normal. No ventriculomegaly. Bones/joints: No acute fracture or dislocation Sinuses: Visualized sinuses are unremarkable. No fluid levels. Mastoid air cells: Visualized mastoid air cells are well aerated. Soft tissues: Unremarkable. IMPRESSION: 1. Large right-sided subacute/acute subdural hematoma with a maximum transverse diameter of approximately 25 mm causing a right to left shift of approximately 10 mm 2. No acute fracture Thank you for allowing us to participate in the care of your patient. BRETJAMES | Final Radiology Report CONFIDENTIALITY STATEMENT This report is intended only for use by the referring physician, and only in accordance with law. If you received this in error, call [phone]. Page 2 of 2 Dictated and Authenticated by: Tadeo Wild MD 01/21/2019 5:43 PM Central Time ([place] & [place]) (Franco Bains) - Re-Assessments/Exams Free Text/Narrative Re-Assessment/Exam: 01/21/19 17:52 I saw and evaluated the patient. Discussed with resident and agree with resident s findings and plan as documented in the residents note. (Franco Bains) Departure <Sary Clifton - Last Filed: 01/21/19 17:57> - Departure Time of Disposition: 17:52 Condition: Serious - Discharge Information *PRESCRIPTION DRUG MONITORING PROGRAM REVIEWED*: Not Applicable *COPY OF PRESCRIPTION DRUG MONITORING REPORT IN PATIENT RAMAKRISHNA: Not Applicable <Franco Bains - Last Filed: 01/21/19 18:06> - Departure Disposition: DC/Tfer to Acute Hospital 02 Clinical Impression: Subdural hematoma, Anticoagulated on warfarin Fall as cause of accidental injury at home as place of occurrence Qualifiers: Encounter type: initial encounter Qualified Code(s): W19.XXXA - Unspecified fall, initial encounter - Discharge Information Forms: ED Department Discharge, Interfacility Transfer EMTALA <Sary Clifton - Last Filed: 01/21/19 17:57> <Franco Bains - Last Filed: 01/21/19 18:06> - Assessment/Plan Assessment:: Assessment and Plan: Subdural hematoma secondary to frequent falls - Head CT without contrast: right sided subdural hematoma with a shift - Ammonia 60 - INR 1.9 - EKG shows prolonged QT and atrial fibrillation (Sary Clifton)"
[2019-01-21 17:43] LABS: ANION GAP 8.1; CHLORIDE,CL 111 mmol/L (101-111); SODIUM,NA 140 mmol/L (135-145)
== END 2019-01-21 18:14 ==
LOC: DL.ED 16:54
DX: S06.5X0A Traumatic subdural hemorrhage without loss of consciousness, initial encounter (principal); I48.91 Unspecified atrial fibrillation; N40.0 Benign prostatic hyperplasia without lower urinary tract symptoms; Z79.899 Other long term (current) drug therapy; Z79.01 Long term (current) use of anticoagulants; Z90.49 Acquired absence of other specified parts of digestive tract; W19.XXXA Unspecified fall, initial encounter; Y92.009 Unspecified place in unspecified non-institutional (private) residence as the place of occurrence of the external cause
CPT/HCPCS: 36415; 70450; 80053; 82140; 83880; 85025; 85610; 93005; 99285-25

== ENCOUNTER 2019-05-10 08:05 | Emergency (ER) | payer OTHER, MEDICARE ==
[2019-05-10] MEDS ORDERED: Sodium Chloride 0.9% 10 ML Syringe FLUSH PRN (08:22)
[2019-05-10 08:47] LABS: ANION GAP 11.6; CHLORIDE,CL 108 mmol/L (101-111); SODIUM,NA 140 mmol/L (135-145)
[2019-05-10] MEDS ORDERED: fentaNYL 100 MCG/2 ML SDV IVPUSH ONE ×2 (08:56→09:43)
[2019-05-10] MEDS ORDERED: Ondansetron 4 MG/2 ML SDV IVPUSH ONE (09:07)
[2019-05-10] MEDS ORDERED: Iopamidol 612 MG/ML 100 ML Bottle IVPUSH ONE (09:10)
[2019-05-10] MEDS ORDERED: Sodium Chloride 0.9% 250 ML IV SCH (09:15)
--- NOTE | 2019-05-10 09:17 | EDM.PDOC ---
ED HPI GENERAL MEDICAL PROBLEM - General Chief Complaint: Trauma Stated Complaint: AMBULANCE Time Seen by Provider: 05/10/19 08:10 Source of Information: Reports: Patient, EMS, RN History Limitations: Reports: No Limitations - History of Present Illness INITIAL COMMENTS - FREE TEXT/NARRATIVE: 84-year-old female who presents with EMS for complaints of left hip pain. Patient was at [place], slipped on a wet floor and hit his head on wall and landed on his buttocks. Patient did not loss consciousness but complains of left hip pain. Denies any neck and head pain. He reports he just had brain surgery one month ago. He is alert and oriented 4. He is on warfarin daily. He rates his pain as an 8 on a 10 but refuses medications en route to the ER. Primary Survey Airway: Open and patent Breathing: Regular with no additional effort Circulation: No open wounds noted. Deformity: No deformity noted Expose: as appropriate GCS 15 Secondary Survey HEENT: Head: Surgical scars noted on both sides of the head on the spiritism. Eyes: PERRLA. Ears: Normal TMs. Nose: Nares patent. Mouth: Clear oropharynx. Throat: No abnormalities. Neck: No C-collar. Good range of motion, supple. Chest: Lungs were clear and equal bilaterally. Heart: Irregular heart rate. Abdomen: Normal bowel sounds with no tenderness. No guarding on palpation. Pelvis: Stable. Pain noted on the left side. Extremities: CMS intact. Provider Trauma notes Trauma Code initiated: 0748 Arrival time: 809 GCS: 15. C-collar on arrival: No. GCS at one hour: 15. Off spine board: N/A. Time secondary survey: 815. Onset: Today Duration: Minutes:, Getting Worse Location: Reports: Head, Lower Extremity, Left Quality: Reports: Sharp Worsens with: Reports: None Context: Reports: Trauma Treatments ELECTRICIAN THIRD: Reports: Other (see below) Other Treatments ELECTRICIAN THIRD: none - Related Data Allergies Allergy/AdvReac Type Severity Reaction Status Date / Time No Known Allergies Allergy Verified 01/21/19 17:09 Home Meds: Home Meds Doxazosin [Cardura] 4 mg PO DAILY 09/01/14 [History] Multivitamin [Multivitamins] 1 each PO DAILY 09/18/14 [History] Metoprolol Tartrate [Lopressor] 25 mg PO Q12HR #60 tablet 09/19/14 [Rx] Warfarin Sodium [Jantoven] 6 mg PO DAILY 11/22/16 [History] Warfarin Sodium [Jantoven] 9 mg PO DAILY 11/22/16 [History] Furosemide 40 mg PO DAILY 08/28/18 [History] Omeprazole 20 mg PO DAILY 08/28/18 [History] Tolterodine Tartrate [Tolterodine Tartrate ER] 2 mg PO DAILY 08/28/18 [History] azaTHIOprine [Imuran] 100 mg PO DAILY 08/28/18 [History] metOLazone [Metolazone] 2.5 mg PO DAILY 08/28/18 [History] Lactulose [Cephulac] 20 gm PO TID 30 Days #90 cup 09/01/18 [Rx] Nitrofurantoin [place]/Macrocryst [Nitrofurantoin [place]-MCR] 100 mg PO BID 7 Days # 7 cap 09/01/18 [Rx] Potassium Chloride [Klor-Con 10] 40 meq PO BEDTIME 30 Days #30 tab.er 09/01/18 [ Rx] Past Medical History HEENT History: Reports: Hard of Hearing, Impaired Vision Cardiovascular History: Reports: Afib Other Cardiovascular History: pfp with atrial septal aneurysm Respiratory History: Reports: None Gastrointestinal History: Reports: Cholelithiasis Other Gastrointestinal History: autoimmune hepatitis Genitourinary History: Reports: BPH Other Genitourinary History: BPH, noturia, bladder neck contracture,hydrocele, incontinence Other Musculoskeletal History: DJD Neurological History: Reports: None Psychiatric History: Reports: None Endocrine/Metabolic History: Reports: None Other Hematologic History: Low platelets Other Immunologic History: autoimmune hepatitis Oncologic (Cancer) History: Reports: None Dermatologic History: Reports: Cellulitis - Infectious Disease History Infectious Disease History: Reports: Hepatitis C - Past Surgical History GI Surgical History: Reports: Cholecystectomy Social & Family History - Family History Family Medical History: Noncontributory - Caffeine Use Caffeine Use: Reports: Coffee, Soda - Living Situation & Occupation Living situation: Reports: , with Spouse, with Family Occupation: Retired Review of Systems - Review of Systems Review Of Systems: Comprehensive ROS is negative, except as noted in HPI. ED EXAM, GENERAL - Physical Exam Exam: See Below Exam Limited By: Other (hip pain) General Appearance: Alert, Moderate Distress Eye Exam: Bilateral Eye: EOMI, Normal Inspection, PERRL Ears: Normal External Exam, Normal Canal, Hearing Grossly Normal, Normal TMs Nose: Normal Inspection, Normal Mucosa, No Blood Head: Atraumatic, Normocephalic, Other (Surgical scar noted on both sides of the parietal lobe) Neck: Normal Inspection, Supple, Non-Tender, Full Range of Motion Respiratory/Chest: No Respiratory Distress, Lungs Clear, Normal Breath Sounds, No Accessory Muscle Use, Chest Non-Tender Cardiovascular: Normal Peripheral Pulses, Regular Rate, Rhythm, No Edema, No Gallop, No JVD, No Murmur, No Rub Peripheral Pulses: 2+: Dorsalis Pedis (L), Dorsalis Pedis (R), 3+: Radial (L), Radial (R), Posterior Tibial (L), Posterior Tibial (R) GI/Abdominal: Normal Bowel Sounds, Soft, Non-Tender, Pelvis Stable (Male) Exam: No Hernia, Normal Inspection, Normal Prostate, Circumcised Rectal (Males) Exam: Normal Exam, Normal Rectal Tone, Prostate Normal Back Exam: Normal Inspection Extremities: Normal Inspection, Pedal Edema (1 + pitting ) Neurological: Alert, Oriented, CN II-XII Intact, Normal Cognition, Normal Gait, Normal Reflexes, No Motor/Sensory Deficits Psychiatric: Normal Affect, Normal Mood Skin Exam: Warm, Dry, Intact, Normal Color, No Rash Lymphatic: No Adenopathy Course - Orders/Labs/Meds Orders: Active Orders 24 hr Category Date Time Status Assess Neurological Status [RC] Q5M Care 05/10/19 08:24 Active EKG Documentation Completion [RC] URGENT Care 05/10/19 08:42 Active Mortensen Catheter Insertion [Insert Urinary Catheter] [OM. Care 05/10/19 09:15 Ordered PC] Q24H Peripheral IV Care [RC] . DIRECTED Care 05/10/19 08:26 Active Pulse Oximetry [RC] CONTINUOUS Care 05/10/19 08:24 Active Urinary Catheter Assessment [RC] ASDIRECTED Care 05/10/19 09:03 Active Vital Signs [RC] Q5M Care 05/10/19 08:22 Active Peripheral IV Insertion Adult [OM.PC] Urgent Oth 05/10/19 08:22 Ordered Labs: Laboratory Tests 05/10/19 05/10/19 05/10/19 Range/Units 08:16 08:16 08:16 WBC 2.8 L (5.0-10.0) 10^3/uL RBC 3.62 L (4.6-6.2) 10^6/uL Hgb 12.2 L (14.0-18.0) g/dL Hct 35.2 L (40.0-54.0) % MCV 97.2 D (80-100) fL MCH 33.7 (27.0-34.0) pg MCHC 34.7 (33.0-35.0) g/dL Plt Count 59 L (150-450) 10^3/uL Neut % (Auto) 39.1 L (42.2-75.2) % Lymph % (Auto) 36.9 (20.5-50.1) % [place] % (Auto) 13.3 H (2-8) % Eos % (Auto) 9.3 H (1.0-3.0) % Baso % (Auto) 1.4 H (0.0-1.0) % PT 12.1 H D (9.0-12.0) SEC INR 1.2 (0.9-1.2) Sodium 140 (135-145) mmol/L Potassium 3.6 (3.6-5.0) mmol/L Chloride 108 (101-111) mmol/L Carbon Dioxide 24.0 (21.0-31.0) mmol/L Anion Gap 11.6 BUN 14 (7-18) mg/dL Creatinine 0.8 (0.6-1.3) mg/dL Est Cr Clr Drug Dosing TNP Estimated GFR (MDRD) > 60 BUN/Creatinine Ratio 17.50 Glucose 120 H (74-105) mg/dL Calcium 8.2 L (8.4-10.2) mg/dl Total Bilirubin 2.6 H (0.2-1.0) mg/dL AST 29 (10-42) IU/L ALT 13 (10-60) IU/L Alkaline Phosphatase 81 (42-121) IU/L Total Protein 6.0 L (6.7-8.2) g/dl Albumin 3.1 L (3.2-5.5) g/dl Globulin 2.9 Albumin/Globulin Ratio 1.07 Meds: Medications Discontinued Medications Generic Name Dose Route Start Last Admin Trade Name Freq PRN Reason Stop Dose Admin Diazepam 5 mg 05/10/19 09:43 05/10/19 09:48 Valium IVPUSH 05/10/19 09:44 5 mg ONETIME ONE Administration Fentanyl 50 mcg 05/10/19 08:56 05/10/19 09:04 Sublimaze IVPUSH 05/10/19 08:57 50 mcg ONETIME ONE Administration Fentanyl 50 mcg 05/10/19 09:43 05/10/19 09:51 Sublimaze IVPUSH 05/10/19 09:44 50 mcg ONETIME ONE Administration Sodium Chloride 250 mls @ 50 mls/hr 05/10/19 09:15 Normal Saline IV ASDIRECTED YOANNA Iopamidol 100 ml 05/10/19 09:10 Isovue-300 (61%) IVPUSH 05/10/19 09:11 ONETIME ONE Ondansetron HCl 4 mg 05/10/19 09:07 05/10/19 09:12 Zofran IVPUSH 05/10/19 09:08 4 mg ONETIME ONE Administration Sodium Chloride 10 ml 05/10/19 08:22 Saline Flush FLUSH ASDIRECTED PRN Keep Vein Open - Radiology Interpretation Free Text/Narrative:: Ct Head: Previously seen mixed density and acute on chronic subdural hematomas on 03/13/19 examination are significantly decreased in size, right smaller then left currently. Thins right subdural hematoma is chronic density without acute hemorrhage in frontal region. No midline shift. See rad report. CT Pelvis: Left femoral neck fracture. Findings which may suggest cystitis correlate clinically and with urinalysis. Other findings s described. See rad report. - Re-Assessments/Exams Free Text/Narrative Re-Assessment/Exam: Fentanyl 50 mg for pain with little relief. Review labs, CT and EKG results with patient and family. Discussed case with [facility] and Dr. Mathur accepted patient for Transfer. [facility] unable to fly due to bad weather and patient was transported by ground ambulance. Fentanyl 50 mcg and Valium administered prior to discharge. See Trauma notes as documented. Departure - Departure Time of Disposition: 09:14 Disposition: DC/Tfer to Acute Hospital 02 Condition: Fair Clinical Impression: Subdural hemorrhage Femur fracture, left Qualifiers: Encounter type: initial encounter Femur location: neck, unspecified portion Fracture type: closed Qualified Code(s): S72.002A - Fracture of unspecified part of neck of left femur, initial encounter for closed fracture Fall Qualifiers: Encounter type: initial encounter Qualified Code(s): W19.XXXA - Unspecified fall, initial encounter - Discharge Information *PRESCRIPTION DRUG MONITORING PROGRAM REVIEWED*: Not Applicable *COPY OF PRESCRIPTION DRUG MONITORING REPORT IN PATIENT RAMAKRISHNA: Not Applicable Referrals: Cherrie Nicole MD [Primary Care Provider] - Forms: ED Department Discharge, Interfacility Transfer EMTALA Sepsis Event Note - Focused Exam Date Exam was Performed: 05/10/19 Time Exam was Performed: 17:27 - My Orders Last 24 Hours: My Active Orders 05/10/19 08:22 Vital Signs [RC] Q5M Peripheral IV Insertion Adult [OM.PC] Urgent 05/10/19 08:24 Assess Neurological Status [RC] Q5M Pulse Oximetry [RC] CONTINUOUS 05/10/19 08:26 Peripheral IV Care [RC] . DIRECTED 05/10/19 08:42 EKG Documentation Completion [RC] URGENT 05/10/19 09:03 Urinary Catheter Assessment [RC] ASDIRECTED 05/10/19 09:15 Mortensen Catheter Insertion [Insert Urinary Catheter] [OM.PC] Q24H - Assessment/Plan Last 24 Hours: My Active Orders 05/10/19 08:22 Vital Signs [RC] Q5M Peripheral IV Insertion Adult [OM.PC] Urgent 05/10/19 08:24 Assess Neurological Status [RC] Q5M Pulse Oximetry [RC] CONTINUOUS 05/10/19 08:26 Peripheral IV Care [RC] . DIRECTED 05/10/19 08:42 EKG Documentation Completion [RC] URGENT 05/10/19 09:03 Urinary Catheter Assessment [RC] ASDIRECTED 05/10/19 09:15 Mortensen Catheter Insertion [Insert Urinary Catheter] [OM.PC] Q24H
== END 2019-05-10 09:55 ==
LOC: DL.ED 08:05
DX: S72.002A Fracture of unspecified part of neck of left femur, initial encounter for closed fracture (principal); I62.03 Nontraumatic chronic subdural hemorrhage; I48.91 Unspecified atrial fibrillation; Z79.01 Long term (current) use of anticoagulants; W01.198A Fall on same level from slipping, tripping and stumbling with subsequent striking against other object, initial encounter; Y92.89 Other specified places as the place of occurrence of the external cause
CPT/HCPCS: 36415; 70450; 72192; 80053; 85025; 85610; 93005; 96361; 96374; 96375; 96376; 99284; 99285; J2405; J3010; J3360; J7050

== ENCOUNTER 2019-05-15 09:58 | Inpatient (IN) | payer MEDICARE ==
[2019-05-15] MEDS ORDERED: Ondansetron 4 MG Tab.DIS PO PRN (12:26)
[2019-05-15] MEDS ORDERED: Polyethylene Glycol 3350 Powder 17 GM Packet PO PRN (12:26)
--- NOTE | 2019-05-15 12:41 | PCM.HP ---
H&P History of Present Illness - General Date of Service: 05/15/19 Admit Problem/Dx: Admission Diagnosis/Problem Admission Diagnosis/Problem Weakness Source of Information: Patient - History of Present Illness Initial Comments - Free Text/Narative: The patient is an 84 year old man with medical history of atrial fibrillation, hypertension and chronic hepatitis, autoimmune. The patient recently fell and sustained a left hip fracture and underwent surgery at [facility]. Patient continues to require physical and occupational therapy. He is transferred to the swing bed for continuation of therapy. At this point he has no complaint except for left hip that is sore. No nausea and no vomiting. No cough no wheezing. Does have bilateral lower extremity swelling - Related Data Allergies/Adverse Reactions: Allergies Allergy/AdvReac Type Severity Reaction Status Date / Time No Known Allergies Allergy Verified 05/15/19 10:05 Home Medications: Home Meds Doxazosin [Cardura] 4 mg PO BEDTIME 09/01/14 [History] Metoprolol Tartrate [Lopressor] 25 mg PO Q12HR #60 tablet 09/19/14 [Rx] Warfarin Sodium [Jantoven] 6 mg PO DAILY 11/22/16 [History] Warfarin Sodium [Jantoven] 9 mg PO DAILY 11/22/16 [History] Furosemide 40 mg PO DAILY 08/28/18 [History] Omeprazole 20 mg PO DAILY 08/28/18 [History] Tolterodine Tartrate [Tolterodine Tartrate ER] 2 mg PO DAILY 08/28/18 [History] azaTHIOprine [Imuran] 50 mg PO BID 08/28/18 [History] metOLazone [Metolazone] 2.5 mg PO DAILY 08/28/18 [History] Acetaminophen 1,000 mg PO Q8HR 05/15/19 [History] Ibuprofen 600 mg PO Q8HR 05/15/19 [History] Lactulose [Cephulac] 30 ml PO TID 05/15/19 [History] Potassium Chloride [Klor-Con 10] 20 meq PO DAILY 05/15/19 [History] Vit A/C/E AC/Znox/Cupric Oxide [Eye Vitamin-Minerals Tablet] 1 tab PO DAILY [History] oxyCODONE 5 mg PO Q6HR PRN 05/15/19 [History] Past Medical History HEENT History: Reports: Hard of Hearing, Impaired Vision Cardiovascular History: Reports: Afib Other Cardiovascular History: pfp with atrial septal aneurysm Respiratory History: Reports: None Gastrointestinal History: Reports: Cholelithiasis Other Gastrointestinal History: autoimmune hepatitis Genitourinary History: Reports: BPH Other Genitourinary History: BPH, noturia, bladder neck contracture,hydrocele, incontinence Other Musculoskeletal History: DJD Neurological History: Reports: Other (See Below) Other Neuro History: 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 Psychiatric History: Reports: None Endocrine/Metabolic History: Reports: None Other Hematologic History: Low platelets Other Immunologic History: autoimmune hepatitis Oncologic (Cancer) History: Reports: None Dermatologic History: Reports: Cellulitis - Infectious Disease History Infectious Disease History: Reports: Hepatitis C - Past Surgical History Head Surgeries/Procedures: Reports: None HEENT Surgical History: Reports: Cataract Surgery Other HEENT Surgeries/Procedures: both eyes GI Surgical History: Reports: Cholecystectomy Social & Family History - Family History Family Medical History: Noncontributory - Tobacco Use Smoking Status *Q: Former Smoker Used Tobacco, but Quit: Yes Month/Year Tobacco Last Used: 1950 - Caffeine Use Caffeine Use: Reports: Coffee, Soda - Recreational Drug Use Recreational Drug Use: No - Living Situation & Occupation Living situation: Reports: , with Spouse, with Family Occupation: Retired H&P Review of Systems - Review of Systems: Review Of Systems: See Below General: Reports: Malaise, Weakness HEENT: Reports: No Symptoms Pulmonary: Reports: No Symptoms Cardiovascular: Reports: No Symptoms Gastrointestinal: Reports: No Symptoms Musculoskeletal: Reports: Leg Pain Skin: Reports: No Symptoms Exam - Exam Exam: See Below - Vital Signs Vital Signs: Last Vital Signs Temp 36.4 C 05/15/19 12:08 Pulse 120 H 05/15/19 12:08 Resp 20 05/15/19 12:08 BP 110/76 05/15/19 12:08 Pulse Ox 95 05/15/19 12:08 Weight: 116.755 kg - Exam General: Alert, Oriented, Cooperative Neck: Supple, Trachea Midline, 2 Lungs: Clear to Auscultation, Normal Respiratory Effort Cardiovascular: Irregular Rhythm GI/Abdominal Exam: Normal Bowel Sounds, Soft, Non-Tender, No Organomegaly, No Distention, No Abnormal Bruit, No Mass, Pelvis Stable Back Exam: Normal Inspection, Full Range of Motion, NT Extremities: Pedal Edema, Other (Status post left hip surgery) Problem List Initiated/Reviewed/Updated: Yes Orders Last 24hrs: Active Orders 24 hr Category Date Time Status Patient Status [ADT] Routine ADT 05/15/19 12:26 Ordered Height and Weight [RC] PER UNIT ROUTINE Care 05/15/19 12:27 Ordered Intake and Output [RC] ASDIRECTED Care 05/15/19 12:26 Ordered Oxygen Therapy [RC] PRN Care 05/15/19 12:26 Ordered Up ad Danielle [RC] ASDIRECTED Care 05/15/19 12:26 Ordered VTE/DVT Education [RC] PER UNIT ROUTINE Care 05/15/19 12:26 Ordered Vital Signs [RC] PER UNIT ROUTINE Care 05/15/19 12:26 Ordered OT Evaluation and Treatment [CONS] Routine Cons 05/15/19 12:26 Ordered PT Evaluation and Treatment [CONS] Routine Cons 05/15/19 12:26 Ordered Regular Diet [DIET] Diet 05/15/19 Lunch Ordered Acetaminophen [Tylenol Extra Strength] Med 05/15/19 14:00 Ordered 1,000 mg PO Q8HR Acetaminophen [Tylenol] Med 05/15/19 12:26 Ordered 650 mg PO Q4H PRN Docusate Sodium/Sennosides [Senna Plus] Med 05/15/19 12:26 Ordered 1 tab PO BEDTIME PRN Doxazosin [Cardura] Med 05/15/19 21:00 Ordered 4 mg PO BEDTIME Furosemide [Lasix] Med 05/16/19 09:00 Ordered 60 mg PO DAILY Heparin Sodium Med 05/15/19 12:30 Ordered 5,000 units SUBCUT Q12H Ibuprofen [Motrin] Med 05/15/19 14:00 Ordered 600 mg PO Q8HR Lactulose [Cephulac] Med 05/15/19 14:00 Ordered 20 gm PO TID Metoprolol Tartrate [Lopressor] Med 05/15/19 21:00 Ordered 25 mg PO Q12HR Omeprazole Med 05/16/19 09:00 Ordered 20 mg PO DAILY Ondansetron [Zofran ODT] Med 05/15/19 12:26 Ordered 4 mg PO Q6H PRN Potassium Chloride [Klor-Con 10] Med 05/16/19 09:00 Ordered 20 meq PO DAILY Tolterodine [Detrol LA 24 Hr] Med 05/16/19 09:00 Ordered 2 mg PO DAILY azaTHIOprine [Imuran] Med 05/15/19 21:00 Ordered 50 mg PO BID oxyCODONE Med 05/15/19 12:26 Ordered 5 mg PO Q4H PRN polyethylene glycoL 3350 [MiraLAX] Med 05/15/19 12:26 Ordered 17 gm PO DAILY PRN Resuscitation Status Routine Resus Stat 05/15/19 12:26 Ordered Medication Orders Acetaminophen (Tylenol) 650 mg PO Q4H PRN PRN Reason: Pain (Mild 1-3)/fever Heparin Sodium (Porcine) (Heparin Sodium) 5,000 units SUBCUT Q12H [facility] Ondansetron HCl (Zofran Odt) 4 mg PO Q6H PRN PRN Reason: nausea, able to take PO Oxycodone HCl (Oxycodone) 5 mg PO Q4H PRN PRN Reason: Pain (moderate 4-6) Polyethylene Glycol (Miralax) 17 gm PO DAILY PRN PRN Reason: Constipation Senna/Docusate Sodium (Senna Plus) 1 tab PO BEDTIME PRN PRN Reason: Constipation Assessment/Plan Comment:: #. Left hip fracture Status post left hip surgery Admit to swing bed for physical therapy and occupational therapy #. Generalized weakness Physical therapy occupational therapy #. Thrombocytopenia Platelet count was 64 Chronic #. Chronic autoimmune hepatitis Azathioprine #. Atrial fibrillation Metoprolol Anticoagulation discontinued because of recent intracranial bleed, subdural hematoma 03/23/19 #. Acute blood loss anemia Hemoglobin was 10.2
[2019-05-15] MEDS: Acetaminophen 500 MG Tab PO SCH ×2 (14:10→21:53)
[2019-05-15] MEDS: Heparin Sodium 5,000 Units/ML Vial SUBCUT SCH ×2 (14:10→21:52)
[2019-05-15] MEDS: Lactulose Soln 10 GM/15 ML 30 ML UD Cup PO SCH ×2 (14:10→21:50)
[2019-05-15] MEDS: Doxazosin 2 MG Tab PO SCH (21:49)
[2019-05-15] MEDS: oxyCODONE 5 MG Tab PO PRN (21:50)
[2019-05-15] MEDS: Metoprolol Tartrate 25 MG Tab PO SCH (21:52)
[2019-05-16] MEDS: Ibuprofen 600 MG Tab PO PRN (04:54)
[2019-05-16] MEDS: Acetaminophen 500 MG Tab PO SCH ×3 (06:47→22:05)
[2019-05-16] MEDS: Omeprazole 20 MG Cap.CR PO SCH (06:47)
[2019-05-16] MEDS: Potassium Chloride 10 MEQ Tab.ER PO SCH (08:20)
[2019-05-16] MEDS: Metoprolol Tartrate 25 MG Tab PO SCH ×2 (08:20→22:02)
[2019-05-16] MEDS: Lactulose Soln 10 GM/15 ML 30 ML UD Cup PO SCH ×3 (08:20→22:07)
[2019-05-16] MEDS: Heparin Sodium 5,000 Units/ML Vial SUBCUT SCH ×2 (08:20→22:07)
[2019-05-16] MEDS: Furosemide 20 MG Tab PO SCH (08:21)
[2019-05-16] MEDS ORDERED: Tolterodine 2 MG Cap.ER PO SCH (09:00)
[2019-05-16] MEDS: oxyCODONE 5 MG Tab PO PRN (09:40)
[2019-05-16] MEDS: Doxazosin 2 MG Tab PO SCH (22:01)
[2019-05-17] MEDS: oxyCODONE 5 MG Tab PO PRN ×2 (00:57→09:10)
[2019-05-17] MEDS: Acetaminophen 500 MG Tab PO SCH ×3 (06:46→21:47)
[2019-05-17] MEDS: Omeprazole 20 MG Cap.CR PO SCH (06:46)
[2019-05-17] MEDS: Metoprolol Tartrate 25 MG Tab PO SCH ×2 (09:09→20:50)
[2019-05-17] MEDS: Furosemide 20 MG Tab PO SCH (09:09)
[2019-05-17] MEDS: Potassium Chloride 10 MEQ Tab.ER PO SCH (09:09)
[2019-05-17] MEDS: Heparin Sodium 5,000 Units/ML Vial SUBCUT SCH (09:10)
[2019-05-17] MEDS: Lactulose Soln 10 GM/15 ML 30 ML UD Cup PO SCH ×3 (09:10→20:48)
[2019-05-17] MEDS ORDERED: Furosemide 40 MG/4 ML VIAL IVPUSH ONE (10:56)
[2019-05-17 11:37] LABS: ANION GAP 7.7; CHLORIDE,CL 109 mmol/L (101-111); SODIUM,NA 139 mmol/L (135-145)
--- NOTE | 2019-05-17 13:16 | PCM.PN ---
- General Info Date of Service: 05/17/19 Admission Dx/Problem (Free Text): Admission Diagnosis/Problem Admission Diagnosis/Problem Weakness Subjective Update: Patient seen and examined today. Says his bilateral leg swelling has worsened over the past couple days. No other complains. Functional Status: Reports: Pain Controlled - Review of Systems General: Reports: No Symptoms HEENT: Reports: No Symptoms Pulmonary: Reports: No Symptoms Cardiovascular: Reports: Edema Gastrointestinal: Reports: No Symptoms Genitourinary: Reports: No Symptoms Musculoskeletal: Reports: No Symptoms Skin: Reports: No Symptoms Neurological: Reports: No Symptoms Psychiatric: Reports: No Symptoms - Patient Data Vitals - Most Recent: Last Vital Signs Temp 98 F 05/17/19 07:54 Pulse 82 05/17/19 09:09 Resp 20 05/17/19 07:54 BP 137/58 L 05/17/19 09:09 Pulse Ox 97 05/17/19 07:54 Weight - Most Recent: 257 lb 6.4 oz I&O - Last 24 Hours: Intake & Output 05/16/19 05/17/19 05/17/19 22:59 06:59 14:59 Intake Total 540 Balance 540 Lab Results Last 24 Hours: Laboratory Results - last 24 hr 05/17/19 05/17/19 Range/Units 11:08 11:08 WBC 2.1 L (5.0-10.0) 10^3/uL RBC 3.01 L (4.6-6.2) 10^6/uL Hgb 10.2 L D (14.0-18.0) g/dL Hct 30.1 L (40.0-54.0) % MCV 100.0 (80-100) fL MCH 33.9 (27.0-34.0) pg MCHC 33.9 (33.0-35.0) g/dL Plt Count 49 L (150-450) 10^3/uL Neut % (Auto) 42.1 L (42.2-75.2) % Lymph % (Auto) 30.1 (20.5-50.1) % [place] % (Auto) 15.8 H (2-8) % Eos % (Auto) 11.0 H (1.0-3.0) % Baso % (Auto) 1.0 (0.0-1.0) % Sodium 139 (135-145) mmol/L Potassium 4.7 (3.6-5.0) mmol/L Chloride 109 (101-111) mmol/L Carbon Dioxide 27.0 (21.0-31.0) mmol/L Anion Gap 7.7 BUN 20 H (7-18) mg/dL Creatinine 0.9 (0.6-1.3) mg/dL Est Cr Clr Drug Dosing 59.16 mL/min Estimated GFR (MDRD) > 60 Glucose 101 (74-105) mg/dL Calcium 8.1 L (8.4-10.2) mg/dl Magnesium 1.7 L (1.8-2.5) mg/dL Med Orders - Current: Current Medications Acetaminophen (Tylenol) 325 mg PO Q8H PRN PRN Reason: Pain (Mild 1-3)/fever Acetaminophen (Tylenol Extra Strength) 1,000 mg PO Q8HR [facility] Last Admin: 05/17/19 06:46 Dose: 1,000 mg Azathioprine (Imuran) 50 mg PO BID [facility] Last Admin: 05/17/19 09:09 Dose: 50 mg Doxazosin Mesylate (Cardura) 4 mg PO BEDTIME [facility] Last Admin: 05/16/19 22:01 Dose: 4 mg Furosemide (Lasix) 40 mg IVPUSH BIDDIURETIC [facility] Ibuprofen (Motrin) 600 mg PO Q8H PRN PRN Reason: pain Last Admin: 05/16/19 04:54 Dose: 600 mg Lactulose (Cephulac) 20 gm PO TID [facility] Last Admin: 05/17/19 09:10 Dose: 20 gm Metoprolol Tartrate (Lopressor) 25 mg PO Q12HR [facility] Last Admin: 05/17/19 09:09 Dose: 25 mg Omeprazole (Omeprazole) 20 mg PO ACBREAKFAST [facility] Last Admin: 05/17/19 06:46 Dose: 20 mg Ondansetron HCl (Zofran Odt) 4 mg PO Q6H PRN PRN Reason: nausea, able to take PO Oxycodone HCl (Oxycodone) 5 mg PO Q4H PRN PRN Reason: Pain (moderate 4-6) Last Admin: 05/17/19 09:10 Dose: 5 mg Polyethylene Glycol (Miralax) 17 gm PO DAILY PRN PRN Reason: Constipation Potassium Chloride (Klor-Con 10) 20 meq PO DAILY [facility] Last Admin: 05/17/19 09:09 Dose: 20 meq Senna/Docusate Sodium (Senna Plus) 1 tab PO BEDTIME PRN PRN Reason: Constipation Discontinued Medications Furosemide (Lasix) 60 mg PO DAILY [facility] Last Admin: 05/17/19 09:09 Dose: 60 mg Furosemide (Lasix) 20 mg IVPUSH NOW ONE Stop: 05/17/19 10:57 Last Admin: 05/17/19 11:10 Dose: 20 mg Heparin Sodium (Porcine) (Heparin Sodium) 5,000 units SUBCUT Q12HR [facility] Last Admin: 05/17/19 09:10 Dose: 5,000 units Tolterodine Tartrate (Detrol La 24 Hr) 2 mg PO DAILY [facility] Last Admin: 05/16/19 11:57 Dose: Not Given - Exam General: Alert, Oriented HEENT: Pupils Equal, Pupils Reactive, EOMI, Mucous Membr. Moist/[place] Neck: Supple Lungs: Clear to Auscultation, Normal Respiratory Effort Cardiovascular: Regular Rate, Regular Rhythm GI/Abdominal Exam: Normal Bowel Sounds, Soft, Non-Tender, No Organomegaly, No Distention, No Abnormal Bruit, No Mass, Pelvis Stable (Male) Exam: Deferred Back Exam: Normal Inspection, Full Range of Motion Extremities: Pedal Edema Skin: Warm, Dry, Intact Wound/Incisions: Healing Well Neurological: No New Focal Deficit Psy/Mental Status: Alert, Normal Affect, Normal Mood Sepsis Event Note - Evaluation Sepsis Screening Result: No Definite Risk - Focused Exam Vital Signs: Vital Signs Temp Pulse Pulse Resp BP BP Pulse Ox 05/17/19 09:09 82 137/58 L 05/17/19 07:54 98 F 82 20 137/58 L 97 Date Exam was Performed: 05/17/19 Time Exam was Performed: 13:11 - Problem List Review Problem List Initiated/Reviewed/Updated: Yes - My Orders Last 24 Hours: My Active Orders 05/17/19 21:00 Furosemide [Lasix] 40 mg IVPUSH BIDDIURETIC - Plan Plan:: #. Left hip fracture Status post left hip surgery Continue physical therapy and occupational therapy #. Chronic CHF #. BLE edema Chronic leg edema worsening. Takes 60 lasix p.o daily. - Switch to IV lasix 40 mg BID from tonight - Given additional lasix 20 mg IV this am - Strict I/o and daily weights #. Generalized weakness Physical therapy occupational therapy #. Thrombocytopenia Platelet count was 64 Chronic #. Chronic autoimmune hepatitis Azathioprine #. Atrial fibrillation Metoprolol Anticoagulation discontinued because of recent intracranial bleed, subdural hematoma 03/23/19 #. Acute blood loss anemia Hemoglobin was 10.2. Stable.
[2019-05-17] MEDS: Ibuprofen 600 MG Tab PO PRN (16:20)
[2019-05-17] MEDS: Doxazosin 2 MG Tab PO SCH (20:49)
[2019-05-17] MEDS: Furosemide 40 MG/4 ML VIAL IVPUSH SCH (20:51)
[2019-05-18] MEDS: Omeprazole 20 MG Cap.CR PO SCH (05:54)
[2019-05-18] MEDS: Acetaminophen 500 MG Tab PO SCH ×3 (05:55→22:37)
[2019-05-18 07:49] LABS: ANION GAP 8.7; CHLORIDE,CL 108 mmol/L (101-111); SODIUM,NA 139 mmol/L (135-145)
[2019-05-18] MEDS: Lactulose Soln 10 GM/15 ML 30 ML UD Cup PO SCH ×3 (08:49→21:36)
[2019-05-18] MEDS: Potassium Chloride 10 MEQ Tab.ER PO SCH (08:49)
[2019-05-18] MEDS: Metoprolol Tartrate 25 MG Tab PO SCH ×2 (08:49→21:35)
[2019-05-18] MEDS: Furosemide 40 MG/4 ML VIAL IVPUSH SCH ×2 (08:50→14:29)
[2019-05-18] MEDS: Acetaminophen 325 MG Tab PO PRN (16:51)
[2019-05-18] MEDS: Doxazosin 2 MG Tab PO SCH (21:34)
[2019-05-19] MEDS: Omeprazole 20 MG Cap.CR PO SCH (05:54)
[2019-05-19] MEDS: Acetaminophen 500 MG Tab PO SCH ×3 (05:55→22:16)
[2019-05-19 07:00] LABS: ANION GAP 8.1; CHLORIDE,CL 107 mmol/L (101-111); SODIUM,NA 138 mmol/L (135-145)
[2019-05-19] MEDS: Metoprolol Tartrate 25 MG Tab PO SCH ×2 (08:54→22:15)
[2019-05-19] MEDS: Furosemide 40 MG/4 ML VIAL IVPUSH SCH ×2 (08:54→14:51)
[2019-05-19] MEDS: Sodium Chloride 0.9% 10 ML Syringe FLUSH PRN ×2 (08:54→10:57)
[2019-05-19] MEDS: Potassium Chloride 10 MEQ Tab.ER PO SCH (08:55)
[2019-05-19] MEDS: Lactulose Soln 10 GM/15 ML 30 ML UD Cup PO SCH ×3 (08:55→22:18)
[2019-05-19] MEDS ORDERED: Magnesium Sulfate/Water 2 GM in Premix Bag 1 BAG IV ONE (09:25)
[2019-05-19] MEDS: Doxazosin 2 MG Tab PO SCH (22:16)
[2019-05-19 22:37] LABS: ANION GAP 8.7; CHLORIDE,CL 105 mmol/L (101-111); SODIUM,NA 137 mmol/L (135-145)
[2019-05-20] MEDS: oxyCODONE 5 MG Tab PO PRN (00:37)
[2019-05-20] MEDS: Omeprazole 20 MG Cap.CR PO SCH (05:32)
[2019-05-20] MEDS: Acetaminophen 500 MG Tab PO SCH ×3 (05:32→21:19)
[2019-05-20 07:17] LABS: ANION GAP 7.8; CHLORIDE,CL 106 mmol/L (101-111); SODIUM,NA 137 mmol/L (135-145)
[2019-05-20] MEDS: Lactulose Soln 10 GM/15 ML 30 ML UD Cup PO SCH ×3 (08:34→21:31)
[2019-05-20] MEDS: Potassium Chloride 10 MEQ Tab.ER PO SCH (08:34)
[2019-05-20] MEDS: Metoprolol Tartrate 25 MG Tab PO SCH ×2 (08:35→21:18)
[2019-05-20] MEDS: Furosemide 40 MG/4 ML VIAL IVPUSH SCH (08:35)
[2019-05-20] MEDS: Sodium Chloride 0.9% 10 ML Syringe FLUSH PRN ×2 (08:36→11:48)
[2019-05-20] MEDS ORDERED: Calcium Gluconate 2 GM in Sodium Chloride 0.9% 100 ML IV ONE (09:09)
[2019-05-20] MEDS: Doxazosin 2 MG Tab PO SCH (21:18)
[2019-05-21] MEDS: Acetaminophen 500 MG Tab PO SCH ×3 (06:13→22:01)
[2019-05-21] MEDS: Omeprazole 20 MG Cap.CR PO SCH (06:13)
[2019-05-21] MEDS: Lactulose Soln 10 GM/15 ML 30 ML UD Cup PO SCH ×3 (09:12→20:21)
[2019-05-21] MEDS: Metoprolol Tartrate 25 MG Tab PO SCH ×2 (09:12→20:20)
[2019-05-21] MEDS: Potassium Chloride 10 MEQ Tab.ER PO SCH (09:12)
[2019-05-21] MEDS: Furosemide 40 MG/4 ML VIAL IVPUSH SCH (09:13)
--- NOTE | 2019-05-21 12:55 | PCM.PN ---
- General Info Date of Service: 05/21/19 Admission Dx/Problem (Free Text): Admission Diagnosis/Problem Admission Diagnosis/Problem Weakness Subjective Update: Patient seen and examined today. Afebrile overnight. Stable on room air. Bilateral leg still swollen. No new other complains. - Review of Systems General: Reports: No Symptoms HEENT: Reports: No Symptoms Pulmonary: Reports: No Symptoms Cardiovascular: Reports: Edema Gastrointestinal: Reports: No Symptoms Genitourinary: Reports: No Symptoms Musculoskeletal: Reports: No Symptoms Skin: Reports: No Symptoms Neurological: Reports: No Symptoms Psychiatric: Reports: No Symptoms - Patient Data Vitals - Most Recent: Last Vital Signs Temp 98.6 F 05/21/19 07:54 Pulse 88 05/21/19 09:12 Resp 20 05/21/19 07:54 BP 118/62 05/21/19 09:12 Pulse Ox 98 05/21/19 07:54 Weight - Most Recent: 250 lb 3.2 oz I&O - Last 24 Hours: Intake & Output 05/20/19 05/21/19 05/21/19 22:59 06:59 14:59 Intake Total 560 400 560 Balance 560 400 560 Med Orders - Current: Current Medications Acetaminophen (Tylenol) 325 mg PO Q8H PRN PRN Reason: Pain (Mild 1-3)/fever Last Admin: 05/18/19 16:51 Dose: 325 mg Acetaminophen (Tylenol Extra Strength) 1,000 mg PO Q8HR [facility] Last Admin: 05/21/19 06:13 Dose: 1,000 mg Azathioprine (Imuran) 50 mg PO BID [facility] Last Admin: 05/21/19 09:11 Dose: 50 mg Doxazosin Mesylate (Cardura) 4 mg PO BEDTIME [facility] Last Admin: 05/20/19 21:18 Dose: 4 mg Furosemide (Lasix) 40 mg IVPUSH DAILY [facility] Last Admin: 05/21/19 09:13 Dose: 40 mg Ibuprofen (Motrin) 600 mg PO Q8H PRN PRN Reason: pain Last Admin: 05/17/19 16:20 Dose: 600 mg Lactulose (Cephulac) 20 gm PO TID [facility] Last Admin: 05/21/19 09:12 Dose: 20 gm Metoprolol Tartrate (Lopressor) 25 mg PO Q12HR [facility] Last Admin: 05/21/19 09:12 Dose: 25 mg Omeprazole (Omeprazole) 20 mg PO ACBREAKFAST [facility] Last Admin: 05/21/19 06:13 Dose: 20 mg Ondansetron HCl (Zofran Odt) 4 mg PO Q6H PRN PRN Reason: nausea, able to take PO Oxycodone HCl (Oxycodone) 5 mg PO Q4H PRN PRN Reason: Pain (moderate 4-6) Last Admin: 05/20/19 00:37 Dose: 5 mg Polyethylene Glycol (Miralax) 17 gm PO DAILY PRN PRN Reason: Constipation Potassium Chloride (Klor-Con 10) 20 meq PO DAILY [facility] Last Admin: 05/21/19 09:12 Dose: 20 meq Senna/Docusate Sodium (Senna Plus) 1 tab PO BEDTIME PRN PRN Reason: Constipation Sodium Chloride (Saline Flush) 10 ml FLUSH ASDIRECTED PRN PRN Reason: Keep Vein Open Last Admin: 05/20/19 11:48 Dose: 10 ml Discontinued Medications Furosemide (Lasix) 60 mg PO DAILY [facility] Last Admin: 05/17/19 09:09 Dose: 60 mg Furosemide (Lasix) 20 mg IVPUSH NOW ONE Stop: 05/17/19 10:57 Last Admin: 05/17/19 11:10 Dose: 20 mg Furosemide (Lasix) 40 mg IVPUSH BIDDIURETIC [facility] Last Admin: 05/20/19 08:35 Dose: 40 mg Heparin Sodium (Porcine) (Heparin Sodium) 5,000 units SUBCUT Q12HR [facility] Last Admin: 05/17/19 09:10 Dose: 5,000 units Magnesium Sulfate 2 gm/ Premix 50 mls @ 25 mls/hr IV ONETIME ONE Stop: 05/19/19 11:24 Last Infusion: 05/19/19 12:54 Dose: 25 mls/hr Calcium Gluconate 2 gm/ Sodium (Chloride) 120 mls @ 100 mls/hr IV ONETIME ONE Stop: 05/20/19 10:20 Last Admin: 05/20/19 11:49 Dose: 100 mls/hr Tolterodine Tartrate (Detrol La 24 Hr) 2 mg PO DAILY [facility] Last Admin: 05/16/19 11:57 Dose: Not Given - Exam General: Alert, Oriented HEENT: Pupils Equal, Pupils Reactive, EOMI, Mucous Membr. Moist/[place] Neck: Supple Lungs: Clear to Auscultation, Normal Respiratory Effort Cardiovascular: Regular Rate, Regular Rhythm GI/Abdominal Exam: Normal Bowel Sounds, Soft, Non-Tender, No Organomegaly, No Distention, No Abnormal Bruit, No Mass, Pelvis Stable (Male) Exam: Deferred Back Exam: Normal Inspection, Full Range of Motion Extremities: Pedal Edema Skin: Warm, Dry, Intact Neurological: No New Focal Deficit Psy/Mental Status: Alert, Normal Affect, Normal Mood Sepsis Event Note - Evaluation Sepsis Screening Result: No Definite Risk - Focused Exam Vital Signs: Vital Signs Temp Pulse Pulse Resp BP BP Pulse Ox 05/21/19 09:12 88 118/62 05/21/19 07:54 98.6 F 88 62 98 Date Exam was Performed: 05/21/19 Time Exam was Performed: 12:48 - Problem List Review Problem List Initiated/Reviewed/Updated: Yes - My Orders Last 24 Hours: My Active Orders 05/21/19 09:00 Furosemide [Lasix] 40 mg IVPUSH DAILY - Plan Plan:: Left hip fracture Status post left hip surgery Continue physical therapy and occupational therapy Chronic CHF BLE edema Chronic leg edema worsening. Takes 60 lasix p.o daily. - Switch to IV lasix 40 mg BID but patient was not tolerating due to borderline BP. Dose decreased to daily. - Strict I/o and daily weights Generalized weakness Physical therapy occupational therapy Thrombocytopenia Platelet count was 64 -Chronic and stable Chronic autoimmune hepatitis - Continue Azathioprine Atrial fibrillation - Continue Metoprolol - Anticoagulation discontinued because of recent intracranial bleed, subdural hematoma 03/23/19 Acute blood loss anemia -Hemoglobin was 10.2. Stable. - No signs of blood loss today
[2019-05-21] MEDS: oxyCODONE 5 MG Tab PO PRN (20:19)
[2019-05-21] MEDS: Doxazosin 2 MG Tab PO SCH (20:21)
[2019-05-22] MEDS: Acetaminophen 500 MG Tab PO SCH ×3 (06:08→21:17)
[2019-05-22] MEDS: Omeprazole 20 MG Cap.CR PO SCH (06:08)
[2019-05-22] MEDS: Potassium Chloride 10 MEQ Tab.ER PO SCH (09:06)
[2019-05-22] MEDS: Lactulose Soln 10 GM/15 ML 30 ML UD Cup PO SCH ×3 (09:06→22:10)
[2019-05-22] MEDS: Metoprolol Tartrate 25 MG Tab PO SCH ×2 (09:08→22:10)
[2019-05-22] MEDS: Furosemide 40 MG/4 ML VIAL IVPUSH SCH (09:08)
[2019-05-22] MEDS: Acetaminophen 325 MG Tab PO PRN (16:46)
[2019-05-22] MEDS: Doxazosin 2 MG Tab PO SCH (22:10)
[2019-05-23] MEDS: Acetaminophen 500 MG Tab PO SCH ×3 (05:52→21:50)
[2019-05-23] MEDS: Omeprazole 20 MG Cap.CR PO SCH (05:53)
[2019-05-23] MEDS: Metoprolol Tartrate 25 MG Tab PO SCH ×2 (09:05→21:48)
[2019-05-23] MEDS: oxyCODONE 5 MG Tab PO PRN (09:13)
[2019-05-23] MEDS: Potassium Chloride 10 MEQ Tab.ER PO SCH (09:14)
[2019-05-23] MEDS: Lactulose Soln 10 GM/15 ML 30 ML UD Cup PO SCH ×3 (09:15→21:50)
[2019-05-23] MEDS: Sodium Chloride 0.9% 10 ML Syringe FLUSH PRN (11:12)
[2019-05-23] MEDS: Furosemide 40 MG/4 ML VIAL IVPUSH SCH (11:12)
[2019-05-23] MEDS: Doxazosin 2 MG Tab PO SCH (21:49)
[2019-05-24] MEDS: oxyCODONE 5 MG Tab PO PRN (01:06)
[2019-05-24] MEDS: Acetaminophen 500 MG Tab PO SCH ×3 (05:24→22:08)
[2019-05-24] MEDS: Omeprazole 20 MG Cap.CR PO SCH (05:24)
[2019-05-24] MEDS: Potassium Chloride 10 MEQ Tab.ER PO SCH (10:09)
[2019-05-24] MEDS: Lactulose Soln 10 GM/15 ML 30 ML UD Cup PO SCH ×4 (10:10→20:29)
[2019-05-24] MEDS: Metoprolol Tartrate 25 MG Tab PO SCH ×2 (10:10→20:30)
[2019-05-24] MEDS: Furosemide 40 MG/4 ML VIAL IVPUSH SCH (10:11)
[2019-05-24] MEDS: Doxazosin 2 MG Tab PO SCH (20:29)
[2019-05-25] MEDS: oxyCODONE 5 MG Tab PO PRN (01:21)
[2019-05-25] MEDS: Acetaminophen 500 MG Tab PO SCH ×2 (05:38→14:05)
[2019-05-25] MEDS: Omeprazole 20 MG Cap.CR PO SCH (05:39)
[2019-05-25] MEDS: Furosemide 40 MG/4 ML VIAL IVPUSH SCH (08:17)
[2019-05-25] MEDS: Potassium Chloride 10 MEQ Tab.ER PO SCH (08:17)
[2019-05-25] MEDS: Metoprolol Tartrate 25 MG Tab PO SCH (08:17)
[2019-05-25 08:18] VITALS: BP 107/52; PULSE 101
[2019-05-25] MEDS: Lactulose Soln 10 GM/15 ML 30 ML UD Cup PO SCH ×2 (08:18→14:04)
--- NOTE | 2019-05-25 10:32 | PCM.DCSUM1 ---
Discharge Summary - Hospital Course Free Text/Narrative:: The patient is an 84 year old man with medical history of atrial fibrillation, hypertension and chronic hepatitis, autoimmune. The patient recently fell and sustained a left hip fracture and underwent surgery at [facility]. Patient continues to require physical and occupational therapy. He is transferred to the swing bed for continuation of therapy. He was treated with IV Lasix while he was here for lower extremity edema but improved slightly. He was later discharged home with home health in stable condition. - Discharge Data Discharge Date: 05/25/19 Discharge Disposition: Home, W Home Health Agency 06 Condition: Good - Referral to Home Health Date of Face to Face Encounter: 05/25/19 Reason for Homebound Status: patient requires snf to assess his medication regimen, physical therapy to teach home exercise programs/ strengthening, and occupational therapy for home safety evaluation. patient is homebound due to CHF and requires a taxing effort, the help of a caregiver as well as a front wheeled walker to leave home. Primary Care Physician: Jarrell Nicole MD Skilled Need: as above. - Patient Summary/Data Consults: Consultations 05/15/19 12:26 OT Evaluation and Treatment [CONS] Routine PT Evaluation and Treatment [CONS] Routine - Discharge Plan *PRESCRIPTION DRUG MONITORING PROGRAM REVIEWED*: No *COPY OF PRESCRIPTION DRUG MONITORING REPORT IN PATIENT RAMAKRISHNA: No Home Medications: Home Meds Doxazosin [Cardura] 4 mg PO BEDTIME 09/01/14 [History] Metoprolol Tartrate [Lopressor] 25 mg PO Q12HR #60 tablet 09/19/14 [Rx] Furosemide 40 mg PO DAILY 08/28/18 [History] Omeprazole 20 mg PO DAILY 08/28/18 [History] azaTHIOprine [Imuran] 50 mg PO BID 08/28/18 [History] Acetaminophen 1,000 mg PO Q8HR 05/15/19 [History] Ibuprofen 600 mg PO Q8HR 05/15/19 [History] Lactulose [Cephulac] 30 ml PO TID 05/15/19 [History] Potassium Chloride [Klor-Con 10] 20 meq PO DAILY 05/15/19 [History] Vit A/C/E AC/Znox/Cupric Oxide [Eye Vitamin-Minerals Tablet] 1 tab PO DAILY [History] oxyCODONE 5 mg PO Q6HR PRN 05/15/19 [History] Patient Handouts: Fall Prevention in the Home, Adult, [id number], Hip Fracture - Discharge Summary/Plan Comment DC Time >30 min.: Yes - Review of Systems General: Reports: No Symptoms Pulmonary: Reports: No Symptoms Cardiovascular: Reports: No Symptoms - Patient Data Vitals - Most Recent: Last Vital Signs Temp 36.5 C 05/25/19 07:37 Pulse 101 H 05/25/19 08:17 Resp 16 05/25/19 07:37 BP 107/52 L 05/25/19 08:17 Pulse Ox 95 05/25/19 07:37 Weight - Most Recent: 111.947 kg I&O - Last 24 hours: Intake & Output 05/24/19 05/25/19 05/25/19 22:59 06:59 14:59 Intake Total 540 140 Balance 540 140 Med Orders - Current: Current Medications Acetaminophen (Tylenol) 325 mg PO Q8H PRN PRN Reason: Pain (Mild 1-3)/fever Last Admin: 05/22/19 16:46 Dose: 325 mg Acetaminophen (Tylenol Extra Strength) 1,000 mg PO Q8HR [facility] Last Admin: 05/25/19 05:38 Dose: 1,000 mg Azathioprine (Imuran) 50 mg PO BID [facility] Last Admin: 05/25/19 08:18 Dose: 50 mg Doxazosin Mesylate (Cardura) 4 mg PO BEDTIME [facility] Last Admin: 05/24/19 20:29 Dose: 4 mg Furosemide (Lasix) 40 mg IVPUSH DAILY [facility] Last Admin: 05/25/19 08:17 Dose: 40 mg Ibuprofen (Motrin) 600 mg PO Q8H PRN PRN Reason: pain Last Admin: 05/17/19 16:20 Dose: 600 mg Lactulose (Cephulac) 20 gm PO TID [facility] Last Admin: 05/25/19 08:18 Dose: 20 gm Metoprolol Tartrate (Lopressor) 25 mg PO Q12HR [facility] Last Admin: 05/25/19 08:17 Dose: 25 mg Omeprazole (Omeprazole) 20 mg PO ACBREAKFAST [facility] Last Admin: 05/25/19 05:39 Dose: 20 mg Ondansetron HCl (Zofran Odt) 4 mg PO Q6H PRN PRN Reason: nausea, able to take PO Oxycodone HCl (Oxycodone) 5 mg PO Q4H PRN PRN Reason: Pain (moderate 4-6) Last Admin: 05/25/19 01:21 Dose: 5 mg Polyethylene Glycol (Miralax) 17 gm PO DAILY PRN PRN Reason: Constipation Potassium Chloride (Klor-Con 10) 20 meq PO DAILY [facility] Last Admin: 05/25/19 08:17 Dose: 20 meq Senna/Docusate Sodium (Senna Plus) 1 tab PO BEDTIME PRN PRN Reason: Constipation Sodium Chloride (Saline Flush) 10 ml FLUSH ASDIRECTED PRN PRN Reason: Keep Vein Open Last Admin: 05/23/19 11:12 Dose: 10 ml Discontinued Medications Furosemide (Lasix) 60 mg PO DAILY [facility] Last Admin: 05/17/19 09:09 Dose: 60 mg Furosemide (Lasix) 20 mg IVPUSH NOW ONE Stop: 05/17/19 10:57 Last Admin: 05/17/19 11:10 Dose: 20 mg Furosemide (Lasix) 40 mg IVPUSH BIDDIURETIC [facility] Last Admin: 05/20/19 08:35 Dose: 40 mg Heparin Sodium (Porcine) (Heparin Sodium) 5,000 units SUBCUT Q12HR [facility] Last Admin: 05/17/19 09:10 Dose: 5,000 units Magnesium Sulfate 2 gm/ Premix 50 mls @ 25 mls/hr IV ONETIME ONE Stop: 05/19/19 11:24 Last Infusion: 05/19/19 12:54 Dose: 25 mls/hr Calcium Gluconate 2 gm/ Sodium (Chloride) 120 mls @ 100 mls/hr IV ONETIME ONE Stop: 05/20/19 10:20 Last Admin: 05/20/19 11:49 Dose: 100 mls/hr Tolterodine Tartrate (Detrol La 24 Hr) 2 mg PO DAILY [facility] Last Admin: 05/16/19 11:57 Dose: Not Given - Exam General: Reports: Alert, Oriented Lungs: Reports: Clear to Auscultation, Normal Respiratory Effort Cardiovascular: Reports: Irregular Rhythm GI/Abdominal Exam: Normal Bowel Sounds, Soft, Non-Tender, No Distention Extremities: Pedal Edema (+3 bilaterally, worse on left) Skin: Reports: Warm, Dry, Intact Neurological: Reports: No New Focal Deficit Psy/Mental Status: Reports: Alert, Normal Affect, Normal Mood
== END 2019-05-25 13:20 | disposition home health service (06) | DRG 560 ==
LOC: DL.MS 11:27 → UNDOADMIN 11:27 → DL.MS 12:26
PROVIDERS: ADMIT Hospitalist; ATTEND Internal Medicine
DX: S72.002D Fracture of unspecified part of neck of left femur, subsequent encounter for closed fracture with routine healing (principal); D62 Acute posthemorrhagic anemia; R53.1 Weakness; D69.6 Thrombocytopenia, unspecified; K75.4 Autoimmune hepatitis; I48.91 Unspecified atrial fibrillation; I50.9 Heart failure, unspecified; I11.0 Hypertensive heart disease with heart failure; N40.0 Benign prostatic hyperplasia without lower urinary tract symptoms; Z79.01 Long term (current) use of anticoagulants; Z28.82 Immunization not carried out because of caregiver refusal; Z79.899 Other long term (current) drug therapy; Z90.49 Acquired absence of other specified parts of digestive tract; Z98.49 Cataract extraction status, unspecified eye; Z87.891 Personal history of nicotine dependence
CPT/HCPCS: 36415; 80048; 83735; 85025; 85027; 97110-GO; 97110-GP; 97116-GP; 97161-GP; 97165-GO; 97530-GO; A9270-GY; J0610; J1644; J1940; J3475; J7050; J7500

== ENCOUNTER 2019-09-23 22:31 | Emergency (ER) | payer MEDICARE ==
[2019-09-23 22:42] VITALS: BP 104/77; PULSE 93
--- NOTE | 2019-09-23 22:59 | EDM.PDOC ---
ED HPI GENERAL MEDICAL PROBLEM - General Chief Complaint: Head Injury Stated Complaint: hit head and fell Time Seen by Provider: 09/23/19 22:49 Source of Information: Reports: Patient History Limitations: Reports: No Limitations - History of Present Illness INITIAL COMMENTS - FREE TEXT/NARRATIVE: states slipped on the wet and fell hitting right back of head with ?LOC some pain in right shoulder and low back. denies N/V. Middle Posterior Back Pain Score (Numeric/FACES): 8 - Related Data Allergies Allergy/AdvReac Type Severity Reaction Status Date / Time No Known Allergies Allergy Verified 09/23/19 22:42 Home Meds: Home Meds Doxazosin [Cardura] 4 mg PO BEDTIME 09/01/14 [History] Metoprolol Tartrate [Lopressor] 25 mg PO Q12HR #60 tablet 09/19/14 [Rx] Furosemide 40 mg PO DAILY 08/28/18 [History] Omeprazole 20 mg PO DAILY 08/28/18 [History] azaTHIOprine [Imuran] 50 mg PO BID 08/28/18 [History] Acetaminophen 1,000 mg PO Q8HR 05/15/19 [History] Ibuprofen 600 mg PO Q8HR 05/15/19 [History] Lactulose [Cephulac] 30 ml PO TID 05/15/19 [History] Potassium Chloride [Klor-Con 10] 20 meq PO DAILY 05/15/19 [History] Vit A/C/E AC/Znox/Cupric Oxide [Eye Vitamin-Minerals Tablet] 1 tab PO DAILY [History] oxyCODONE 5 mg PO Q6HR PRN 05/15/19 [History] Past Medical History HEENT History: Reports: Hard of Hearing, Impaired Vision Cardiovascular History: Reports: Afib Other Cardiovascular History: pfp with atrial septal aneurysm Respiratory History: Reports: None Gastrointestinal History: Reports: Cholelithiasis Other Gastrointestinal History: autoimmune hepatitis Genitourinary History: Reports: BPH Other Genitourinary History: BPH, noturia, bladder neck contracture,hydrocele, incontinence Other Musculoskeletal History: DJD Neurological History: Reports: Other (See Below) Other Neuro History: 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 Psychiatric History: Reports: None Endocrine/Metabolic History: Reports: None Other Hematologic History: Low platelets Other Immunologic History: autoimmune hepatitis Oncologic (Cancer) History: Reports: None Dermatologic History: Reports: Cellulitis - Infectious Disease History Infectious Disease History: Reports: Hepatitis C - Past Surgical History Head Surgeries/Procedures: Reports: None HEENT Surgical History: Reports: Cataract Surgery Other HEENT Surgeries/Procedures: both eyes GI Surgical History: Reports: Cholecystectomy Social & Family History - Family History Family Medical History: Noncontributory - Tobacco Use Smoking Status *Q: Unknown Ever Smoked Second Hand Smoke Exposure: No - Caffeine Use Caffeine Use: Reports: Coffee, Soda - Recreational Drug Use Recreational Drug Use: No - Living Situation & Occupation Living situation: Reports: , with Spouse, with Family Occupation: Retired ED ROS GENERAL - Review of Systems Review Of Systems: Comprehensive ROS is negative, except as noted in HPI. ED EXAM, HEAD INJURY - Physical Exam Exam: See Below Exam Limited By: No Limitations General Appearance: Alert, WD/WN, Mild Distress, Other (discomfort) Head: Scalp Swelling, Scalp Tenderness, Other (right occiput). No: Yu's Sign, Raccoon Eyes Nexus Criteria: No: Posterior, Midline Cervical Tenderness, Evidence of Intoxication, Altered Level of Consciousness, Focal Neurological Deficit, Painful Distraction Injuries Eyes: Bilateral Eye: PERRL (pupils ER @ 4mm) Ears: Hearing Grossly Normal Throat/Mouth: Normal Voice, No Airway Compromise Neck: Stiff Neck Respiratory: No Respiratory Distress Cardiovascular: Regular Rate, Rhythm GI/Abdominal Exam: Soft, Non-Tender Neurologic: No Motor/Sensory Deficits, Normal Mood/Affect, Oriented x 3 Skin: Normal Color, Warm/Dry - [place] Coma Score Best Eye Response (Manuela): (4) Open Spontaneously Best Verbal Response ([place]): (5) Oriented Best Motor Response (Manuela): (6) Obeys Commands Manuela Total: 15 Course - Vital Signs Last Recorded V/S: Last Vital Signs Temp 36.7 C 09/23/19 22:40 Pulse 93 09/23/19 22:40 Resp 18 09/23/19 22:40 BP 104/77 09/23/19 22:40 Pulse Ox 99 09/23/19 22:40 - Orders/Labs/Meds Orders: Active Orders 24 hr Category Date Time Status Acetaminophen/Codeine [Tylenol with Codeine No.3 300MG/ Med 09/24/19 00:26 Once 30MG] 1 tab PO ONETIME ONE - Re-Assessments/Exams Free Text/Narrative Re-Assessment/Exam: 09/24/19 00:26 results discussed with pt who is feeling fine except for bit of headache and takes T#3 works well. Departure - Departure Time of Disposition: 00:27 Disposition: Home, Self-Care 01 Condition: Good Clinical Impression: Contusion of hip, right Qualifiers: Encounter type: initial encounter Qualified Code(s): S70.01XA - Contusion of right hip, initial encounter Contusion of shoulder Qualifiers: Encounter type: initial encounter Laterality: right Qualified Code(s): S40.011A - Contusion of right shoulder, initial encounter Scalp contusion Qualifiers: Encounter type: initial encounter Qualified Code(s): S00.03XA - Contusion of scalp, initial encounter - Discharge Information Instructions: Head Injury, Adult, [id number] Forms: ED Department Discharge Additional Instructions: 1) rest 2) recheck if there is any change or concern Sepsis Event Note - Evaluation Sepsis Screening Result: No Definite Risk - Focused Exam Vital Signs: Vital Signs Temp Pulse Resp BP Pulse Ox 09/23/19 22:40 36.7 C 93 18 104/77 99 Date Exam was Performed: 09/24/19 Time Exam was Performed: 00:26 - My Orders Last 24 Hours: My Active Orders 09/24/19 00:26 Acetaminophen/Codeine [Tylenol with Codeine No.3 300MG/30MG] 1 tab PO ONETIME ONE - Assessment/Plan Last 24 Hours: My Active Orders 09/24/19 00:26 Acetaminophen/Codeine [Tylenol with Codeine No.3 300MG/30MG] 1 tab PO ONETIME ONE
--- NOTE | 2019-09-23 23:54 | CT ---
PROCEDURE INFORMATION: Exam: CT Pelvis Without Contrast; Skeletal Exam date and time: 09/23/2019 11:16 PM Age: 84 years old Clinical indication: Other: Fall; Additional info: Fell hitting head right shoulder hips TECHNIQUE: Imaging protocol: Computed tomography images of the pelvis without contrast. Exam focused on the skeletal structures. Radiation optimization: All CT scans at this facility use at least one of these dose optimization techniques: automated exposure control; mA and/or kV adjustment per patient size (includes targeted exams where dose is matched to clinical indication); or iterative reconstruction. COMPARISON: CT Pelvis wo Cont 05/10/2019 8:38 AM FINDINGS: Bladder: Stranding of fat around the bladder suggests cystitis. Vasculature: There is atherosclerotic calcification of the aorto-iliac tree. There is no abdominal aortic aneurysm. Bones/joints: No acute fracture or dislocation. Right hip clinton arthroplasty. Soft tissues: Unremarkable. IMPRESSION: 1. Stranding of fat around the bladder suggests cystitis. Reticular scarring in the subcutaneous fat lateral to the left hip. 2. No acute fracture or dislocation.
--- NOTE | 2019-09-24 00:02 | CT ---
PROCEDURE INFORMATION: Exam: CT Cervical Spine Without Contrast Exam date and time: 09/23/2019 11:16 PM Age: 84 years old Clinical indication: Other: Fall; Additional info: Fell hitting head right shoulder hips TECHNIQUE: Imaging protocol: Computed tomography images of the cervical spine without contrast. Radiation optimization: All CT scans at this facility use at least one of these dose optimization techniques: automated exposure control; mA and/or kV adjustment per patient size (includes targeted exams where dose is matched to clinical indication); or iterative reconstruction. COMPARISON: No relevant prior studies available. FINDINGS: Vertebrae: No acute cervical fracture. Fcvm-[id number] T5 compression fracture associated with slight trabecular disruption and a superior sclerosis but no definite acute fracture line. Slight spondylolisthesis at C2-C3 through C4-C5 and slight retrolisthesis at C5-C6. Discs/Spinal canal/Neural foramina: Minimal C3-C4, npvb-va-vqjcqpof C4-C5 and moderate to marked C5-C6 disc narrowing. Small central focal disc protrusion at C3-C4 and possibly C5-C6. Slight annular bulging at C4-C5. No significant canal stenosis. No marked foraminal narrowing. Soft tissues/Other: No acute soft tissue disease. Small glenoid calcification or loose body along the inferior right glenoid. Possible small loose body along the right lesser tuberosity. Sinuses: Almost complete filling of the right sphenoid sinus by soft tissue density; apparent connection of this soft tissue density to the soft tissue mass effect in the posterior right nasal cavity. Mucosal thickening in the left sphenoid sinus and the maxillary sinuses. No air-fluid levels. Mastoid air cells: No apparent mastoid disease. Lungs: No acute disease in the visualized lungs considering motion artifacts. IMPRESSION: 1. No acute cervical spine fracture. Questionable subacute nature of the feve-vt-pcwswvli T5 compression fracture. 2. Multilevel degenerative disease and slight malalignments detailed above. 3. Questionable polypoid disease of the right sphenoid sinus and nasal cavity. Other chronic sinus disease and other findings detailed above.
--- NOTE | 2019-09-24 00:16 | CT ---
PROCEDURE INFORMATION: Exam: CT Head Without Contrast Exam date and time: 09/23/2019 11:16 PM Age: 84 years old Clinical indication: Other: Fall; Additional info: Fell hitting head right shoulder hips TECHNIQUE: Imaging protocol: Computed tomography of the head without contrast. Radiation optimization: All CT scans at this facility use at least one of these dose optimization techniques: automated exposure control; mA and/or kV adjustment per patient size (includes targeted exams where dose is matched to clinical indication); or iterative reconstruction. COMPARISON: CT Head wo Cont 05/10/2019 8:32 AM FINDINGS: Brain: Interval disappearance of the bilateral subdural hematomas. Interval mild increase in size of the area of encephalomalacia in the left frontal lobe. Continued patchy low density in the cerebral white matter bilaterally consistent with chronic ischemic changes. No apparent acute edema in the brain. Continued increased CSF in the sella. No acute hemorrhage. Ventricles: Ventricular system still within normal limits. Bones/joints: Bilateral bong holes, with 1 hole on each side having a closure device over it, again evident. Still no acute skull fracture. Sinuses: Sinus disease detailed in the cervical spine CT report. Mastoid air cells: Still no apparent mastoid disease. Soft tissues: No acute finding. IMPRESSION: 1. No acute intracranial findings. Interval disappearance of the subdural hematomas. Chronic ischemic changes again evident. Interval mild increase in size of the area of encephalomalacia in the left frontal lobe possibly due to maturation of disease. 2. Bilateral bong holes again evident. Sinus disease detailed in the cervical spine CT report.
[2019-09-24] MEDS ORDERED: Acetaminophen/Codeine 300-30 MG Tab PO ONE (00:26)
== END 2019-09-24 00:39 | disposition home or self-care (01) ==
LOC: DL.ED 22:31
DX: S70.01XA Contusion of right hip, initial encounter (principal); S40.011A Contusion of right shoulder, initial encounter; S00.03XA Contusion of scalp, initial encounter; W01.10XA Fall on same level from slipping, tripping and stumbling with subsequent striking against unspecified object, initial encounter; Z79.899 Other long term (current) drug therapy; I48.91 Unspecified atrial fibrillation
CPT/HCPCS: 70450; 72125; 72192; 99283; 99283-25; A9270-GY

== ENCOUNTER 2020-12-29 12:06 | Emergency (ER) | payer MEDICARE ==
--- NOTE | 2020-12-29 14:56 | EDM.PDOC ---
ED HPI GENERAL MEDICAL PROBLEM - General Chief Complaint: Respiratory Problem Stated Complaint: COUGHING/WHEEZING [id number] Time Seen by Provider: 12/29/20 14:52 Source of Information: Reports: Patient History Limitations: Reports: No Limitations - History of Present Illness INITIAL COMMENTS - FREE TEXT/NARRATIVE: This 85 yo male patient reports to the ED due to "pains across his chest". The patient reports his pain started about 1 week ago and has continued through today. The patient reports he attempted to have an appointment at the [facility], but his provider (Dr. Nicole) does not have any opening. The patient denies any shortness of breath today. The patient denies any alcohol or tobacco use. Onset: Unknown/Unsure Duration: Week(s):, Getting Worse, Intermittent Location: Reports: Chest Quality: Reports: Ache Severity: Moderate Improves with: Reports: None Worsens with: Reports: None Context: Reports: Other Associated Symptoms: Reports: Chest Pain Back Pain Score (Numeric/FACES): 8 - Related Data Allergies Allergy/AdvReac Type Severity Reaction Status Date / Time No Known Allergies Allergy Verified 12/29/20 12:55 Home Meds: Home Meds Doxazosin [Cardura] 4 mg PO BEDTIME 09/01/14 [History] Metoprolol Tartrate [Lopressor] 25 mg PO Q12HR #60 tablet 09/19/14 [Rx] Furosemide 40 mg PO DAILY 08/28/18 [History] Omeprazole 20 mg PO DAILY 08/28/18 [History] azaTHIOprine [Imuran] 50 mg PO BID 08/28/18 [History] Acetaminophen 1,000 mg PO Q8HR 05/15/19 [History] Ibuprofen 600 mg PO Q8HR 05/15/19 [History] Lactulose [Cephulac] 30 ml PO TID 05/15/19 [History] Potassium Chloride [Klor-Con 10] 20 meq PO DAILY 05/15/19 [History] Vit A/C/E AC/Znox/Cupric Oxide [Eye Vitamin-Minerals Tablet] 1 tab PO DAILY 05/15/19 [History] oxyCODONE 5 mg PO Q6HR PRN 05/15/19 [History] Past Medical History HEENT History: Reports: Hard of Hearing, Impaired Vision Cardiovascular History: Reports: Afib Other Cardiovascular History: pfp with atrial septal aneurysm Respiratory History: Reports: None Gastrointestinal History: Reports: Cholelithiasis Other Gastrointestinal History: autoimmune hepatitis Genitourinary History: Reports: BPH Other Genitourinary History: BPH, noturia, bladder neck contracture,hydrocele, incontinence Other Musculoskeletal History: DJD Neurological History: Reports: Other (See Below) Other Neuro History: 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 Psychiatric History: Reports: None Endocrine/Metabolic History: Reports: None Hematologic History: Reports: None Other Hematologic History: Low platelets Other Immunologic History: autoimmune hepatitis Oncologic (Cancer) History: Reports: None Dermatologic History: Reports: Cellulitis - Infectious Disease History Infectious Disease History: Reports: Hepatitis C - Past Surgical History Head Surgeries/Procedures: Reports: None HEENT Surgical History: Reports: Cataract Surgery Other HEENT Surgeries/Procedures: both eyes GI Surgical History: Reports: Cholecystectomy Social & Family History - Family History Family Medical History: No Pertinent Family History - Tobacco Use Tobacco Use Status *Q: Never Tobacco User - Caffeine Use Caffeine Use: Reports: Coffee - Recreational Drug Use Recreational Drug Use: No - Living Situation & Occupation Living situation: Reports: , with Spouse, with Family Occupation: Retired ED ROS GENERAL - Review of Systems Review Of Systems: Comprehensive ROS is negative, except as noted in HPI. ED EXAM, GENERAL - Physical Exam Exam: See Below Exam Limited By: No Limitations General Appearance: Alert, WD/WN, Mild Distress Eye Exam: Bilateral Eye: EOMI, Normal Inspection, PERRL Ears: Normal External Exam, Normal Canal, Hearing Grossly Normal, Normal TMs Nose: Normal Inspection, Normal Mucosa, No Blood Throat/Mouth: Normal Inspection, Normal Lips, Normal Teeth, Normal Gums, Normal Oropharynx, Normal Voice, No Airway Compromise Head: Atraumatic, Normocephalic Neck: Normal Inspection, Supple, Non-Tender, Full Range of Motion Respiratory/Chest: No Respiratory Distress, Lungs Clear, Normal Breath Sounds, No Accessory Muscle Use, Chest Non-Tender Cardiovascular: Normal Peripheral Pulses, Regular Rate, Rhythm, No Edema, No Gallop, No JVD, No Murmur, No Rub GI/Abdominal: Normal Bowel Sounds, Soft, Non-Tender, No Organomegaly, No Distention, No Abnormal Bruit, No Mass (Male) Exam: Deferred Rectal (Males) Exam: Deferred Back Exam: Normal Inspection, Full Range of Motion, NT Extremities: Normal Inspection, Normal Range of Motion, Non-Tender, Normal Capillary Refill, No Pedal Edema Neurological: Alert, Oriented, CN II-XII Intact, Normal Cognition, Normal Gait, Normal Reflexes, No Motor/Sensory Deficits Psychiatric: Normal Affect, Normal Mood Skin Exam: Warm, Dry, Intact, Normal Color, No Rash Lymphatic: No Adenopathy #1 Interpretation EKG Date: 12/29/20 Time: : Rhythm: A-Fib Rate (Beats/Min): 121 [place]: Normal P-Wave: Absent QRS: Normal Comparison: No Change Course - Vital Signs Last Recorded V/S: Last Vital Signs Temp 99.7 F 12/29/20 17:01 Pulse 114 H 12/29/20 17:01 Resp 26 H 12/29/20 17:01 BP 139/62 12/29/20 17:01 Pulse Ox 94 L 12/29/20 17:01 - Orders/Labs/Meds Orders: Active Orders 24 hr Category Date Time Status CULTURE BLOOD [BC] Stat Lab 12/29/20 15:12 Received Labs: Laboratory Tests 12/29/20 12/29/20 12/29/20 Range/Units 15:12 15:12 15:12 WBC 2.8 L (5.0-10.0) 10^3/uL RBC 3.87 L (4.6-6.2) 10^6/uL Hgb 12.8 L D (14.0-18.0) g/dL Hct 36.4 L (40.0-54.0) % MCV 94.1 D (80-100) fL MCH 33.1 (27.0-34.0) pg MCHC 35.2 H (33.0-35.0) g/dL Plt Count 48 L* (150-450) 10^3/uL Neut % (Auto) 71.9 (42.2-75.2) % Lymph % (Auto) 13.7 L (20.5-50.1) % Winn % (Auto) 14.0 H (2-8) % Eos % (Auto) 0.0 L (1.0-3.0) % Baso % (Auto) 0.4 (0.0-1.0) % D-Dimer, Quantitative 916 H (0-400) ng/mL Sodium 136 (136-145) mmol/L Potassium 2.9 L (3.5-5.1) mmol/L Chloride 99 (98-107) mmol/L Carbon Dioxide 29 (21-32) mmol/L Anion Gap 10.9 (7-13) mEq/L BUN 10 (7-18) mg/dL Creatinine 1.03 (0.70-1.30) mg/dL Est Cr Clr Drug Dosing 52.57 mL/min Estimated GFR (MDRD) > 60 BUN/Creatinine Ratio 9.7 (No establ ref range) Glucose 123 H (70-99) mg/dL Lactic Acid (0.4-2.0) mmol/L Calcium 7.7 L (8.5-10.1) mg/dL Total Bilirubin 2.2 H (0.2-1.0) mg/dL AST 39 H (15-37) U/L ALT 21 (16-63) U/L Alkaline Phosphatase 76 (46-116) U/L Troponin I High Sens 16 (<=76) pg/mL B-Natriuretic Peptide 170 H (0-100) pg/ml Total Protein 6.1 L (6.4-8.2) g/dL Albumin 2.5 L (3.4-5.0) g/dL Globulin 3.6 Albumin/Globulin Ratio 0.69 09/13/21 Range/Units 15:12 WBC (5.0-10.0) 10^3/uL RBC (4.6-6.2) 10^6/uL Hgb (14.0-18.0) g/dL Hct (40.0-54.0) % MCV (80-100) fL MCH (27.0-34.0) pg MCHC (33.0-35.0) g/dL Plt Count (150-450) 10^3/uL Neut % (Auto) (42.2-75.2) % Lymph % (Auto) (20.5-50.1) % Winn % (Auto) (2-8) % Eos % (Auto) (1.0-3.0) % Baso % (Auto) (0.0-1.0) % D-Dimer, Quantitative (0-400) ng/mL Sodium (136-145) mmol/L Potassium (3.5-5.1) mmol/L Chloride (98-107) mmol/L Carbon Dioxide (21-32) mmol/L Anion Gap (7-13) mEq/L BUN (7-18) mg/dL Creatinine (0.70-1.30) mg/dL Est Cr Clr Drug Dosing mL/min Estimated GFR (MDRD) BUN/Creatinine Ratio (No establ ref range) Glucose (70-99) mg/dL Lactic Acid 2.8 H* (0.4-2.0) mmol/L Calcium (8.5-10.1) mg/dL Total Bilirubin (0.2-1.0) mg/dL AST (15-37) U/L ALT (16-63) U/L Alkaline Phosphatase (46-116) U/L Troponin I High Sens (<=76) pg/mL B-Natriuretic Peptide (0-100) pg/ml Total Protein (6.4-8.2) g/dL Albumin (3.4-5.0) g/dL Globulin Albumin/Globulin Ratio Meds: Medications Discontinued Medications Generic Name Dose Route Start Last Admin Trade Name Freq PRN Reason Stop Dose Admin Amoxicillin/Clavulanate Potassium 1 tab 12/29/20 17:57 12/29/20 18:08 Amoxicillin/Clavulanate K 500-125 Mg Tab PO 12/29/20 17:58 1 tab ONETIME ONE Administration Potassium Chloride 10 meq/ 100 mls @ 100 mls/hr 12/29/20 16:12 12/29/20 16:58 Premix IV 12/29/20 17:11 100 mls/hr ONETIME ONE Administration Iopamidol 100 ml 12/29/20 16:11 12/29/20 16:47 Iopamidol 755 Mg/Ml 100 Ml Bottle IVPUSH 12/29/20 16:12 100 ml ONETIME ONE Administration Potassium Chloride 20 meq 12/29/20 16:12 12/29/20 16:58 Potassium Chloride 10 Meq Tab.Er PO 12/29/20 16:13 20 meq ONETIME ONE Administration Departure - Departure Time of Disposition: 17:58 Disposition: Home, Self-Care 01 Condition: Fair Clinical Impression: Bronchitis - Discharge Information *PRESCRIPTION DRUG MONITORING PROGRAM REVIEWED*: Not Applicable *COPY OF PRESCRIPTION DRUG MONITORING REPORT IN PATIENT RAMAKRISHNA: Not Applicable Instructions: Acute Bronchitis, Adult, [id number] Forms: ED Department Discharge Care Plan Goals: The patient was advised of the examination, CT, EKG, x-ray and lab results during the visit. The patient was given an oral dose of Augmentin (500/125) while in the ED. The patient was discharged with a script for Augmentin (500/125) #20 to take 1 by mouth twice per day for 10 days. If the patient has any additional symptoms or concerns, the patient should visit his primary care facility or return to the emergency department. Sepsis Event Note (ED) - Evaluation Sepsis Screening Result: No Definite Risk - My Orders Last 24 Hours: My Active Orders 12/29/20 15:12 CULTURE BLOOD [BC] Stat - Assessment/Plan Last 24 Hours: My Active Orders 12/29/20 15:12 CULTURE BLOOD [BC] Stat
[2020-12-29 15:42] LABS: ANION GAP 10.9 mEq/L (7-13); CHLORIDE,CL 99 mmol/L (98-107); SODIUM,NA 136 mmol/L (136-145)
--- NOTE | 2020-12-29 15:48 | CR ---
EXAMINATION: Chest 1V Frontal SEX: Male AGE: 85 years CLINICAL HISTORY: 85-year-old male with chest pain. INTERPRETATION: No acute new cardiopulmonary abnormality since AP chest 22 November 2016. 1. Chronic pleural-parenchymal scarring blunting the left costophrenic sulcus and generalized shaggy bronchitic pattern. 2. Normal cardiac silhouette (size and configuration). Atheromatous calcification arch of the left side of the aorta. 3. No pulmonary vascular congestion, cephalization of flow, alveolar edema or dependent new pleural fluid (effusion). 4. No new lung mass or hilar lymphadenopathy. 5. No alveolar infiltrate, air bronchograms or peripheral new "groundglass" interstitial lung densities. 6. No pneumothorax or pneumomediastinum. Normal midline tracheal bronchial airway.
[2020-12-29] MEDS ORDERED: Iopamidol 755 Mg/ML 100 ML Bottle IVPUSH ONE (16:11)
[2020-12-29] MEDS ORDERED: Potassium Chloride 10 MEQ in Premix Bag 1 BAG IV ONE (16:12)
[2020-12-29] MEDS ORDERED: Potassium Chloride 10 MEQ Tab.ER PO ONE (16:12)
[2020-12-29 17:02] VITALS: BP 139/62; PULSE 114
--- NOTE | 2020-12-29 17:36 | CT ---
PROCEDURE INFORMATION: Exam: CT Chest With Contrast; Diagnostic Exam date and time: 12/29/2020 4:46 PM Age: 85 years old Clinical indication: Shortness of breath; Additional info: Chest pain with shortness of breath TECHNIQUE: Imaging protocol: Diagnostic computed tomography of the chest with contrast. Radiation optimization: All CT scans at this facility use at least one of these dose optimization techniques: automated exposure control; mA and/or kV adjustment per patient size (includes targeted exams where dose is matched to clinical indication); or iterative reconstruction. Contrast material: ISOVUE 370; Contrast volume: 98 ml; Contrast route: INTRAVENOUS (IV); COMPARISON: CR Chest 1V Frontal 12/29/2020 3:17 PM FINDINGS: Lungs: Bilateral lower lobe bronchiectasis and peribronchial thickening. Bilateral posterior basilar patchy infiltrates. Small pericardial effusion. Pleural spaces: Unremarkable. No pneumothorax. No pleural effusion. Heart: Unremarkable. No cardiomegaly. No pericardial effusion. Aorta: Unremarkable. No aortic aneurysm. Lymph nodes: Unremarkable. No enlarged lymph nodes. Liver: Cirrhotic liver disease. Hepatic fatty infiltration. Spleen: Splenomegaly. Splenic varices. Bones/joints: Thoracic degenerative disease. No acute fracture. Soft tissues: Unremarkable. IMPRESSION: 1. No evidence of pulmonary embolic disease. 2. Bilateral lower lobe bronchiectasis, bronchial wall thickening with bilateral basilar consolidation. Cannot exclude underline bronchiolitis obliterans or basilar organizing pneumonia. 3. Cirrhotic liver disease, splenomegaly and varices. 4. Small pericardial effusion.
[2020-12-29] MEDS ORDERED: Amoxicillin/Clavulanate K 500-125 MG Tab PO ONE (17:57)
== END 2020-12-29 18:14 | disposition home or self-care (01) ==
LOC: DL.ED 12:06
DX: J40 Bronchitis, not specified as acute or chronic (principal)
CPT/HCPCS: 36415; 71045; 71260; 80053; 83605; 83880; 84484; 85025; 85379; 87040; 93005; 96365; 99285; A9270; J3480; Q9967

== ENCOUNTER 2021-02-06 01:36 | Emergency (ER) | payer MEDICAID, MEDICARE ==
[2021-02-06] MEDS ORDERED: Sodium Chloride 0.9% 10 ML Syringe FLUSH PRN (01:48)
--- NOTE | 2021-02-06 02:04 | EDM.PDOC ---
ED HPI GENERAL MEDICAL PROBLEM - General Chief Complaint: General Stated Complaint: DIZZY NOT FEELING GOOD Time Seen by Provider: 02/06/21 01:50 Source of Information: Reports: Patient History Limitations: Reports: No Limitations - History of Present Illness INITIAL COMMENTS - FREE TEXT/NARRATIVE: Pt is here for dizziness and weakness. He notes that it started a few weeks ago, but has been getting worse over the last day. He reports becoming so weak that he felt unsteady at home with his walker so he decided to come in for evaluation. He noted that when he gets dizzy, he will also get chest pain, shortness of breath and nausea. No vomiting. No symptoms when at rest. He reports the dizziness when he gets up and moves around. He denies having this before. No fevers or chills. No cough. No known sick contacts or exposure to COVID. He has had his COVID vaccine, but not the booster yet. - Related Data Allergies Allergy/AdvReac Type Severity Reaction Status Date / Time No Known Allergies Allergy Verified 02/06/21 01:49 Home Meds: Home Meds Doxazosin [Cardura] 4 mg PO BEDTIME 09/01/14 [History] Metoprolol Tartrate [Lopressor] 25 mg PO Q12HR #60 tablet 09/19/14 [Rx] Furosemide 40 mg PO DAILY 08/28/18 [History] Omeprazole 20 mg PO DAILY 08/28/18 [History] azaTHIOprine [Imuran] 50 mg PO BID 08/28/18 [History] Acetaminophen 1,000 mg PO Q8HR 05/15/19 [History] Ibuprofen 600 mg PO Q8HR 05/15/19 [History] Lactulose [Cephulac] 30 ml PO TID 05/15/19 [History] Potassium Chloride [Klor-Con 10] 20 meq PO DAILY 05/15/19 [History] Vit A/C/E AC/Znox/Cupric Oxide [Eye Vitamin-Minerals Tablet] 1 tab PO DAILY 05/15/19 [History] oxyCODONE 5 mg PO Q6HR PRN 05/15/19 [History] Past Medical History HEENT History: Reports: Hard of Hearing, Impaired Vision Cardiovascular History: Reports: Afib Other Cardiovascular History: pfp with atrial septal aneurysm Respiratory History: Reports: None Gastrointestinal History: Reports: Cholelithiasis Other Gastrointestinal History: autoimmune hepatitis Genitourinary History: Reports: BPH Other Genitourinary History: BPH, noturia, bladder neck contracture,hydrocele, incontinence Other Musculoskeletal History: DJD Neurological History: Reports: Other (See Below) Other Neuro History: 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 Psychiatric History: Reports: None Endocrine/Metabolic History: Reports: None Hematologic History: Reports: None Other Hematologic History: Low platelets Other Immunologic History: autoimmune hepatitis Oncologic (Cancer) History: Reports: None Dermatologic History: Reports: Cellulitis - Infectious Disease History Infectious Disease History: Reports: Hepatitis C - Past Surgical History Head Surgeries/Procedures: Reports: None HEENT Surgical History: Reports: Cataract Surgery Other HEENT Surgeries/Procedures: both eyes GI Surgical History: Reports: Cholecystectomy Social & Family History - Family History Family Medical History: No Pertinent Family History - Caffeine Use Caffeine Use: Reports: Coffee - Living Situation & Occupation Living situation: Reports: , with Spouse, with Family Occupation: Retired ED ROS GENERAL - Review of Systems Review Of Systems: See Below Constitutional: Reports: Weakness. Denies: Fever, Chills HEENT: Denies: Ear Pain, Rhinitis, Vision Change Respiratory: Reports: Shortness of Breath. Denies: Wheezing, Cough Cardiovascular: Reports: Chest Pain, Dyspnea on Exertion. Denies: Palpitations Endocrine: Reports: Fatigue. Denies: Polydypsia, Polyuria GI/Abdominal: Reports: Abdominal Pain, Nausea. Denies: Constipation, Diarrhea, Vomiting : Denies: Dysuria, Frequency, Urgency Musculoskeletal: Reports: Leg Pain (left). Denies: Back Pain, Muscle Stiffness Skin: Denies: Rash, Wound, Change in Color Neurological: Reports: Headache (2 days ago), Difficulty Walking, Weakness. D enies: Confusion, Tingling Psychiatric: Denies: Agitation, Anxiety, Hallucinations Hematologic/Lymphatic: Denies: Anemia, Easy Bleeding Immunologic: Denies: Food Allergy, Seasonal Allergy ED EXAM, GENERAL - Physical Exam Exam: See Below Exam Limited By: No Limitations General Appearance: Alert, WD/WN, No Apparent Distress Eye Exam: Bilateral Eye: Normal Inspection Ears: Normal External Exam Nose: Normal Inspection Throat/Mouth: Normal Inspection, Normal Voice, No Airway Compromise Head: Atraumatic, Normocephalic Neck: Normal Inspection, Supple Respiratory/Chest: No Respiratory Distress, Lungs Clear, Normal Breath Sounds, No Accessory Muscle Use. No: Rales, Wheezing Cardiovascular: Normal Peripheral Pulses, No Murmur, Irregularly Irregular GI/Abdominal: Soft, No Distention, Tender (epigastric) (Male) Exam: Deferred Rectal (Males) Exam: Deferred Back Exam: Normal Inspection, Full Range of Motion Extremities: Normal Inspection, Normal Range of Motion, Normal Capillary Refill, Pedal Edema (L>R) Neurological: Alert, Oriented, CN II-XII Intact, Normal Cognition, Normal Reflexes, No Motor/Sensory Deficits Psychiatric: Normal Affect, Normal Mood Skin Exam: Warm, Dry, Intact, Normal Color, No Rash Lymphatic: No Adenopathy #1 Interpretation EKG Date: 02/06/21 Time: 01:43 Rhythm: A-Fib [place]: Normal P-Wave: Variable QRS: Normal ST-T: Normal QT: Normal Comparison: No Change (12/29/20) Course - Vital Signs Last Recorded V/S: Last Vital Signs Temp 97.7 F 02/06/21 01:47 Pulse 110 H 02/06/21 03:30 Resp 14 02/06/21 03:30 BP 123/82 02/06/21 03:30 Pulse Ox 95 02/06/21 03:30 - Orders/Labs/Meds Orders: Active Orders 24 hr Category Date Time Status Peripheral IV Care [RC] . DIRECTED Care 02/06/21 01:48 Active CULTURE URINE [RM] Stat Lab 02/06/21 03:20 Received Sodium Chloride 0.9% [Saline Flush] Med 02/06/21 01:48 Active 10 ml FLUSH ASDIRECTED PRN Peripheral IV Insertion Adult [OM.PC] Stat Oth 02/06/21 01:48 Ordered Medication Orders Sodium Chloride (Sodium Chloride 0.9% 10 Ml Syringe) 10 ml FLUSH ASDIRECTED PRN PRN Reason: Keep Vein Open Last Admin: 02/06/21 03:26 Dose: 10 ml Documented by: WAQAR Labs: Laboratory Tests 02/06/21 02/06/21 02/06/21 Range/Units 01:50 01:50 01:50 WBC 5.7 (5.0-10.0) 10^3/uL RBC 4.49 L (4.6-6.2) 10^6/uL Hgb 15.2 D (14.0-18.0) g/dL Hct 43.2 (40.0-54.0) % MCV 96.2 (80-100) fL MCH 33.9 (27.0-34.0) pg MCHC 35.2 H (33.0-35.0) g/dL Plt Count 81 L (150-450) 10^3/uL Neut % (Auto) 64.7 (42.2-75.2) % Lymph % (Auto) 21.0 (20.5-50.1) % [place] % (Auto) 10.1 H (2-8) % Eos % (Auto) 3.5 H (1.0-3.0) % Baso % (Auto) 0.7 (0.0-1.0) % Add Manual Diff Yes Neutrophils % (Manual) 56 (42-75) % Band Neutrophils % 2 % Lymphocytes % (Manual) 27 (20-50) % Monocytes % (Manual) 14 H (2-8) % Eosinophils % (Manual) 1 (1-3) % Sodium 138 (136-145) mmol/L Potassium 4.7 D (3.5-5.1) mmol/L Chloride 101 (98-107) mmol/L Carbon Dioxide 27 (21-32) mmol/L Anion Gap 14.7 H (7-13) mEq/L BUN 24 H (7-18) mg/dL Creatinine 1.46 H (0.70-1.30) mg/dL Est Cr Clr Drug Dosing TNP Estimated GFR (MDRD) 46 BUN/Creatinine Ratio 16.4 (No establ ref range) Glucose 143 H (70-99) mg/dL Calcium 9.1 (8.5-10.1) mg/dL Total Bilirubin 2.4 H (0.2-1.0) mg/dL AST 47 H (15-37) U/L ALT 31 (16-63) U/L Alkaline Phosphatase 135 H (46-116) U/L Ammonia 59 H (11-32) umol/L Troponin I High Sens 5 (<=76) pg/mL Total Protein 7.3 (6.4-8.2) g/dL Albumin 3.1 L (3.4-5.0) g/dL Globulin 4.2 Albumin/Globulin Ratio 0.74 Urine Color (YELLOW) Urine Appearance (CLEAR) Urine pH (5.0-9.0) Ur Specific [place] (1.005-1.030) Urine Protein (NEGATIVE) Urine Glucose (UA) (NEGATIVE) Urine Ketones (NEGATIVE) Urine Occult Blood (NEGATIVE) Urine Nitrite (NEGATIVE) Urine Bilirubin (NEGATIVE) Urine Urobilinogen (0.2-1.0) mg/dL Ur Leukocyte Esterase (NEGATIVE) Urine RBC (0-5) /HPF Urine WBC (0-5/HPF) /HPF Ur Epithelial Cells (NOT SEEN) /HPF Amorphous Sediment (NOT SEEN) /HPF Urine Bacteria (0-FEW/HPF) /HPF SARS-CoV-2 RNA (JADYN) (NEGATIVE) 02/06/21 02/06/21 Range/Units 02:10 03:20 WBC (5.0-10.0) 10^3/uL RBC (4.6-6.2) 10^6/uL Hgb (14.0-18.0) g/dL Hct (40.0-54.0) % MCV (80-100) fL MCH (27.0-34.0) pg MCHC (33.0-35.0) g/dL Plt Count (150-450) 10^3/uL Neut % (Auto) (42.2-75.2) % Lymph % (Auto) (20.5-50.1) % [place] % (Auto) (2-8) % Eos % (Auto) (1.0-3.0) % Baso % (Auto) (0.0-1.0) % Add Manual Diff Neutrophils % (Manual) (42-75) % Band Neutrophils % % Lymphocytes % (Manual) (20-50) % Monocytes % (Manual) (2-8) % Eosinophils % (Manual) (1-3) % Sodium (136-145) mmol/L Potassium (3.5-5.1) mmol/L Chloride (98-107) mmol/L Carbon Dioxide (21-32) mmol/L Anion Gap (7-13) mEq/L BUN (7-18) mg/dL Creatinine (0.70-1.30) mg/dL Est Cr Clr Drug Dosing Estimated GFR (MDRD) BUN/Creatinine Ratio (No establ ref range) Glucose (70-99) mg/dL Calcium (8.5-10.1) mg/dL Total Bilirubin (0.2-1.0) mg/dL AST (15-37) U/L ALT (16-63) U/L Alkaline Phosphatase (46-116) U/L Ammonia (11-32) umol/L Troponin I High Sens (<=76) pg/mL Total Protein (6.4-8.2) g/dL Albumin (3.4-5.0) g/dL Globulin Albumin/Globulin Ratio Urine Color Yellow (YELLOW) Urine Appearance Slightly cloudy (CLEAR) Urine pH 6.0 (5.0-9.0) Ur Specific [place] 1.025 (1.005-1.030) Urine Protein Negative (NEGATIVE) Urine Glucose (UA) Negative (NEGATIVE) Urine Ketones Negative (NEGATIVE) Urine Occult Blood Moderate H (NEGATIVE) Urine Nitrite Negative (NEGATIVE) Urine Bilirubin Negative (NEGATIVE) Urine Urobilinogen 1.0 (0.2-1.0) mg/dL Ur Leukocyte Esterase Large H (NEGATIVE) Urine RBC 10-20 H (0-5) /HPF Urine WBC >100 H (0-5/HPF) /HPF Ur Epithelial Cells Few (NOT SEEN) /HPF Amorphous Sediment Few (NOT SEEN) /HPF Urine Bacteria Many H (0-FEW/HPF) /HPF SARS-CoV-2 RNA (JADYN) Positive H (NEGATIVE) Meds: Medications Generic Name Dose Route Start Last Admin Trade Name Freq PRN Reason Stop Dose Admin Sodium Chloride 10 ml 02/06/21 01:48 02/06/21 03:26 Sodium Chloride 0.9% 10 Ml Syringe FLUSH 10 ml ASDIRECTED PRN Administration Keep Vein Open - Re-Assessments/Exams Free Text/Narrative Re-Assessment/Exam: Reviewed labs and positive COVID test with the pt. Advised to quarantine per the CDC guidelines. Encouraged pt to contact his PCP when the clinic opens to discussed possible treatment options. Discussed symptomatic treatment with OTC meds. Reviewed reasons to call/return to the ER. Pt verbalized understanding. 02/06/21 03:39 Departure - Departure Time of Disposition: 03:40 Disposition: Home, Self-Care 01 Condition: Fair Clinical Impression: COVID-19 - Discharge Information *PRESCRIPTION DRUG MONITORING PROGRAM REVIEWED*: No *COPY OF PRESCRIPTION DRUG MONITORING REPORT IN PATIENT RAMAKRISHNA: No Instructions: 10 Things You Can Do to Manage Your COVID-19 Symptoms at Home - [facility] (10/31/2020), COVID-19: How to Protect Yourself and Others - CDC Forms: ED Department Discharge Additional Instructions: If your symptoms worsen, call/return to the ER Call you doctor when the clinic opens to discuss if you qualify for infusion treatments Sepsis Event Note (ED) - Evaluation Sepsis Screening Result: No Definite Risk - Focused Exam Vital Signs: Vital Signs Temp Pulse Resp BP Pulse Ox 02/06/21 03:30 110 H 14 123/82 95 02/06/21 02:45 100 20 117/59 L 97 02/06/21 01:47 97.7 F 98 18 132/72 95 - My Orders Last 24 Hours: My Active Orders 02/06/21 01:48 Peripheral IV Care [RC] . DIRECTED Sodium Chloride 0.9% [Saline Flush] 10 ml FLUSH ASDIRECTED PRN Peripheral IV Insertion Adult [OM.PC] Stat 02/06/21 03:20 CULTURE URINE [RM] Stat - Assessment/Plan Last 24 Hours: My Active Orders 02/06/21 01:48 Peripheral IV Care [RC] . DIRECTED Sodium Chloride 0.9% [Saline Flush] 10 ml FLUSH ASDIRECTED PRN Peripheral IV Insertion Adult [OM.PC] Stat 02/06/21 03:20 CULTURE URINE [RM] Stat
[2021-02-06 02:24] LABS: CHLORIDE,CL 101 mmol/L (98-107); SODIUM,NA 138 mmol/L (136-145)
[2021-02-06 02:25] LABS: ANION GAP 14.7 mEq/L (7-13)
[2021-02-06 03:31] VITALS: BP 123/82; PULSE 110
== END 2021-02-06 04:02 | disposition home or self-care (01) ==
LOC: DL.ED 01:36
DX: U07.1 COVID-19 (principal)
CPT/HCPCS: 36415; 80053; 81001; 82140; 84484; 85025; 87086; 87088; 87186; 93005; 99284; U0002

== ENCOUNTER 2021-03-05 08:24 | Emergency (ER) | payer MEDICARE, MEDICAID ==
[2021-03-05 08:58] VITALS: BP 140/86; PULSE 82
--- NOTE | 2021-03-05 09:02 | EDM.PDOC ---
ED HPI GENERAL MEDICAL PROBLEM - General Chief Complaint: General Stated Complaint: GENERALLY FEELS WEAK AND SICK Time Seen by Provider: 03/05/21 09:00 Source of Information: Reports: Patient History Limitations: Reports: No Limitations - History of Present Illness INITIAL COMMENTS - FREE TEXT/NARRATIVE: This 85 yo male reports to the ED due to falling 1 1/2 - 2 days ago and not feeling well. The patient was treated with monoclonal antibodies on 02/09/21 for COVID. The patient denies any additional symptoms. The patient later reports he has had some intermittent abdominal pain and aches, but does not have any current symptoms. Onset: Unknown/Unsure Location: Reports: Other Quality: Reports: Other Severity: Moderate Improves with: Reports: None Worsens with: Reports: None Context: Reports: Other Associated Symptoms: Reports: No Other Symptoms - Related Data Allergies Allergy/AdvReac Type Severity Reaction Status Date / Time No Known Allergies Allergy Verified 03/05/21 08:58 Home Meds: Home Meds Doxazosin [Cardura] 4 mg PO BEDTIME 09/01/14 [History] Metoprolol Tartrate [Lopressor] 25 mg PO Q12HR #60 tablet 09/19/14 [Rx] Furosemide 40 mg PO DAILY 08/28/18 [History] Omeprazole 20 mg PO DAILY 08/28/18 [History] azaTHIOprine [Imuran] 50 mg PO BID 08/28/18 [History] Acetaminophen 1,000 mg PO Q8HR 05/15/19 [History] Ibuprofen 600 mg PO Q8HR 05/15/19 [History] Lactulose [Cephulac] 30 ml PO TID 05/15/19 [History] Vit A/C/E AC/Znox/Cupric Oxide [Eye Vitamin-Minerals Tablet] 1 tab PO DAILY 05/15/19 [History] oxyCODONE 5 mg PO Q6HR PRN 05/15/19 [History] Past Medical History HEENT History: Reports: Hard of Hearing, Impaired Vision Cardiovascular History: Reports: Afib Other Cardiovascular History: pfp with atrial septal aneurysm Respiratory History: Reports: Other (See Below) Other Respiratory History: positive Covid 19 02/06/21 Gastrointestinal History: Reports: Cholelithiasis Other Gastrointestinal History: autoimmune hepatitis Genitourinary History: Reports: BPH Other Genitourinary History: BPH, noturia, bladder neck contracture,hydrocele, incontinence Other Musculoskeletal History: DJD Neurological History: Reports: Other (See Below) Other Neuro History: 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 Psychiatric History: Reports: None Endocrine/Metabolic History: Reports: None Hematologic History: Reports: None Other Hematologic History: Low platelets Immunologic History: Reports: Immunosuppression Other Immunologic History: autoimmune hepatitis Oncologic (Cancer) History: Reports: Ovarian Other Oncologic History: some kind of skin ca Dermatologic History: Reports: Cellulitis - Infectious Disease History Infectious Disease History: Reports: Hepatitis C, Novel Coronavirus - Past Surgical History Head Surgeries/Procedures: Reports: None HEENT Surgical History: Reports: Cataract Surgery Other HEENT Surgeries/Procedures: both eyes Cardiovascular Surgical History: Reports: None Respiratory Surgical History: Reports: None GI Surgical History: Reports: Cholecystectomy Male Surgical History: Reports: Other (See Below) Other Male Surgeries/Procedures: bladder surg Neurological Surgical History: Reports: None Social & Family History - Family History Family Medical History: No Pertinent Family History - Caffeine Use Caffeine Use: Reports: Coffee Caffeine Use Comment: OCCASIONAL - Living Situation & Occupation Living situation: Reports: , with Spouse, with Family Occupation: Retired ED ROS GENERAL - Review of Systems Review Of Systems: Comprehensive ROS is negative, except as noted in HPI. ED EXAM, GENERAL - Physical Exam Exam: See Below Exam Limited By: No Limitations General Appearance: Alert, WD/WN, Mild Distress Eye Exam: Bilateral Eye: EOMI, Normal Inspection, PERRL Ears: Normal External Exam, Normal Canal, Hearing Grossly Normal, Normal TMs Nose: Normal Inspection Throat/Mouth: Normal Inspection, Normal Lips, Normal Teeth, Normal Gums, Normal Oropharynx, Normal Voice, No Airway Compromise Head: Other (Abrasion to right lateral scalp with normal healing) Neck: Normal Inspection, Supple, Non-Tender, Full Range of Motion Respiratory/Chest: No Respiratory Distress, Lungs Clear, Normal Breath Sounds, No Accessory Muscle Use, Chest Non-Tender Cardiovascular: Normal Peripheral Pulses, Regular Rate, Rhythm, No Edema, No Gallop, No JVD, No Murmur, No Rub GI/Abdominal: Normal Bowel Sounds, Soft, Non-Tender, No Organomegaly, No Distention, No Abnormal Bruit, No Mass (Male) Exam: Deferred Rectal (Males) Exam: Deferred Back Exam: Normal Inspection, Full Range of Motion, NT Extremities: Normal Inspection, Normal Range of Motion, Non-Tender, Normal Capillary Refill, No Pedal Edema Neurological: Alert Psychiatric: Normal Affect, Normal Mood Skin Exam: Warm, Dry, Intact, Normal Color, No Rash Lymphatic: No Adenopathy #1 Interpretation EKG Date: 03/05/21 Time: 08:53 Rhythm: A-Fib (Tachy) [place]: Normal P-Wave: Absent QRS: Normal ST-T: Normal QT: Normal Comparison: No Change Course - Vital Signs Last Recorded V/S: Last Vital Signs Temp 97.6 F 03/05/21 08:50 Pulse 82 03/05/21 08:50 Resp 18 03/05/21 08:50 BP 140/86 03/05/21 08:50 Pulse Ox 98 03/05/21 08:50 - Orders/Labs/Meds Orders: Active Orders 24 hr Category Date Time Status CULTURE BLOOD [BC] Stat Lab 03/05/21 08:58 Received REFLEX LACTIC ACID YES OR NO [CHEM] Routine Lab 03/05/21 09:43 Received Labs: Laboratory Tests 03/05/21 03/05/21 03/05/21 Range/Units 08:58 08:58 08:58 WBC 5.5 (5.0-10.0) 10^3/uL RBC 4.78 (4.6-6.2) 10^6/uL Hgb 16.2 (14.0-18.0) g/dL Hct 46.5 (40.0-54.0) % MCV 97.3 (80-100) fL MCH 33.9 (27.0-34.0) pg MCHC 34.8 (33.0-35.0) g/dL Plt Count 76 L (150-450) 10^3/uL Neut % (Auto) 66.3 (42.2-75.2) % Lymph % (Auto) 17.9 L (20.5-50.1) % [place] % (Auto) 12.5 H (2-8) % Eos % (Auto) 2.4 (1.0-3.0) % Baso % (Auto) 0.9 (0.0-1.0) % PT 11.3 (9.0-12.0) SEC INR 1.1 (0.9-1.2) D-Dimer, Quantitative < 100 (0-400) ng/mL Sodium 137 (136-145) mmol/L Potassium 4.3 (3.5-5.1) mmol/L Chloride 101 (98-107) mmol/L Carbon Dioxide 25 (21-32) mmol/L Anion Gap 15.3 H (7-13) mEq/L BUN 35 H (7-18) mg/dL Creatinine 1.63 H (0.70-1.30) mg/dL Est Cr Clr Drug Dosing TNP Estimated GFR (MDRD) 41 BUN/Creatinine Ratio 21.5 (No establ ref range) Glucose 158 H (70-99) mg/dL Lactic Acid (0.4-2.0) mmol/L Calcium 8.9 (8.5-10.1) mg/dL Total Bilirubin 3.5 H (0.2-1.0) mg/dL AST 45 H (15-37) U/L ALT 39 (16-63) U/L Alkaline Phosphatase 123 H (46-116) U/L Troponin I High Sens 10 (<=76) pg/mL Total Protein 7.4 (6.4-8.2) g/dL Albumin 3.2 L (3.4-5.0) g/dL Globulin 4.2 Albumin/Globulin Ratio 0.76 11/18/21 Range/Units 08:58 WBC (5.0-10.0) 10^3/uL RBC (4.6-6.2) 10^6/uL Hgb (14.0-18.0) g/dL Hct (40.0-54.0) % MCV (80-100) fL MCH (27.0-34.0) pg MCHC (33.0-35.0) g/dL Plt Count (150-450) 10^3/uL Neut % (Auto) (42.2-75.2) % Lymph % (Auto) (20.5-50.1) % [place] % (Auto) (2-8) % Eos % (Auto) (1.0-3.0) % Baso % (Auto) (0.0-1.0) % PT (9.0-12.0) SEC INR (0.9-1.2) D-Dimer, Quantitative (0-400) ng/mL Sodium (136-145) mmol/L Potassium (3.5-5.1) mmol/L Chloride (98-107) mmol/L Carbon Dioxide (21-32) mmol/L Anion Gap (7-13) mEq/L BUN (7-18) mg/dL Creatinine (0.70-1.30) mg/dL Est Cr Clr Drug Dosing Estimated GFR (MDRD) BUN/Creatinine Ratio (No establ ref range) Glucose (70-99) mg/dL Lactic Acid 2.6 H* (0.4-2.0) mmol/L Calcium (8.5-10.1) mg/dL Total Bilirubin (0.2-1.0) mg/dL AST (15-37) U/L ALT (16-63) U/L Alkaline Phosphatase (46-116) U/L Troponin I High Sens (<=76) pg/mL Total Protein (6.4-8.2) g/dL Albumin (3.4-5.0) g/dL Globulin Albumin/Globulin Ratio Departure - Departure Time of Disposition: 11:10 Disposition: Home, Self-Care 01 Condition: Fair Clinical Impression: Dizziness, Fall from ground level - Discharge Information *PRESCRIPTION DRUG MONITORING PROGRAM REVIEWED*: Not Applicable *COPY OF PRESCRIPTION DRUG MONITORING REPORT IN PATIENT RAMAKRISHNA: Not Applicable Instructions: Fall Prevention in the Home, Adult, [id number], Dizziness, [id number] Forms: ED Department Discharge Care Plan Goals: The patient was advised of the examination, lab, EKG, x-ray and CT results during the visit. The patient was encouraged to continue to monitor his symptoms. The patient was also encouraged to eat a well balanced diet. The patient should follow-up with his primary care facility next week for continued evaluation and further management. If the patient has any additional symptoms or concerns, the patient should either return to the emergency department or visit his primary care facility. Sepsis Event Note (ED) - Evaluation Sepsis Screening Result: No Definite Risk - Focused Exam Vital Signs: Vital Signs Temp Pulse Resp BP Pulse Ox 03/05/21 08:50 97.6 F 82 18 140/86 98 - My Orders Last 24 Hours: My Active Orders 03/05/21 08:58 CULTURE BLOOD [BC] Stat 03/05/21 09:43 REFLEX LACTIC ACID YES OR NO [CHEM] Routine - Assessment/Plan Last 24 Hours: My Active Orders 03/05/21 08:58 CULTURE BLOOD [BC] Stat 03/05/21 09:43 REFLEX LACTIC ACID YES OR NO [CHEM] Routine
[2021-03-05 09:29] LABS: ANION GAP 15.3 mEq/L (7-13); CHLORIDE,CL 101 mmol/L (98-107); SODIUM,NA 137 mmol/L (136-145)
--- NOTE | 2021-03-05 11:03 | CT ---
PROCEDURE INFORMATION: Exam: CT Head Without Contrast Exam date and time: 03/05/2021 10:34 AM Age: 85 years old Clinical indication: Pain; Headache; Post-traumatic; Prior surgery; Surgery type: Unknown; Additional info: Fell and hit his head TECHNIQUE: Imaging protocol: Computed tomography of the head without contrast. Radiation optimization: All CT scans at this facility use at least one of these dose optimization techniques: automated exposure control; mA and/or kV adjustment per patient size (includes targeted exams where dose is matched to clinical indication); or iterative reconstruction. COMPARISON: CT Head wo Cont 09/23/2019 11:16 PM FINDINGS: Brain: The brain demonstrates diffuse volume loss. There is white matter hypodensity most consistent with chronic small vessel ischemic change. No visible evolving territorial infarct. No hemorrhage. Left frontal lobe encephalomalacia is again demonstrated. Cerebral ventricles: The ventricles are enlarged in keeping with volume loss. Paranasal sinuses: Improved aeration of the right sphenoid sinus with persistent mucosal disease. Mastoid air cells: Visualized mastoid air cells are well aerated. Orbital cavity: Thinning of the lenses of the globes consistent with prior lens surgery. Bones/joints: Multiple old calvarial bong holes. No acute fracture seen. Soft tissues: Unremarkable. IMPRESSION: No acute intracranial abnormality seen.
--- NOTE | 2021-03-05 11:08 | CR ---
PROCEDURE INFORMATION: Exam: XR Chest Exam date and time: 03/05/2021 10:30 AM Age: 85 years old Clinical indication: Pain; Other: Fall; Additional info: Fell and hit his head TECHNIQUE: Imaging protocol: XR of the chest. Views: 1 view. COMPARISON: 1. CR Chest 1V Frontal 12/29/2020 3:17:[address] Chest w Cont 12/29/2020 4:46 PM FINDINGS: Lungs: No lobar consolidation seen. Pleural spaces: Blunting of the left costophrenic sulcus is stable consistent with pleural scarring. No visible large effusions or pneumothorax. Heart/Mediastinum: Unremarkable. No cardiomegaly. Bones/joints: No acute fracture seen. IMPRESSION: No evidence of acute cardiopulmonary disease.
== END 2021-03-05 11:21 | disposition home or self-care (01) ==
LOC: DL.ED 08:24
DX: R42 Dizziness and giddiness (principal); S00.01XA Abrasion of scalp, initial encounter; Z79.899 Other long term (current) drug therapy; W18.39XA Other fall on same level, initial encounter
CPT/HCPCS: 36415; 70450; 71045; 80053; 83605; 84484; 85025; 85379; 85610; 87040; 93005; 99284-25

== ENCOUNTER 2021-05-22 15:28 | Emergency (ER) | payer MEDICARE, MEDICAID ==
[2021-05-22] MEDS ORDERED: HYDROmorphone 0.5 MG/0.5 ML Syringe IVPUSH ONE (16:05)
[2021-05-22] MEDS: Sodium Chloride 0.9% 10 ML Syringe FLUSH PRN ×2 (16:08→17:32)
[2021-05-22 16:38] LABS: ANION GAP 9.8 mEq/L (7-13)
[2021-05-22] MEDS ORDERED: Ketorolac 30 MG/ML SDV IVPUSH ONE (17:17)
[2021-05-22] MEDS ORDERED: Bacitracin Oint 1 GM U/D Packet TOP ONE (17:31)
== END 2021-05-22 17:50 | disposition home or self-care (01) ==
LOC: DL.ED 15:28
DX: S00.81XA Abrasion of other part of head, initial encounter (principal); R07.81 Pleurodynia; I48.91 Unspecified atrial fibrillation; N40.0 Benign prostatic hyperplasia without lower urinary tract symptoms; Z79.899 Other long term (current) drug therapy; W00.9XXA Unspecified fall due to ice and snow, initial encounter
CPT/HCPCS: 36415; 70450; 71101; 80053; 83735; 83880; 85025; 93005; 96374; 96375; 99284; J1170; J1885

== ENCOUNTER 2022-02-17 09:43 | Emergency (ER) | payer OTHER, MEDICARE, MEDICAID ==
[~2022-02-17 09:43] MED LIST: Sodium Chloride 0.9% 10 ML Syringe FLUSH PRN
[2022-02-17 10:53] LABS: CHLORIDE,CL 102 mmol/L (98-107); ESTIMATED GFR 64 mL/min (>=60); SODIUM,NA 135 mmol/L (136-145)
[2022-02-17 11:24] LABS: PTT,PARTIAL THROMBOPLSTIN TIME 27.8 SEC (22.0-34.0)
[2022-02-17 11:28] LABS: AMPHETAMINES,URINE NEGATIVE (NEGATIVE); BARBITURATES,URINE NEGATIVE (NEGATIVE); BENZODIAZEPINE,URINE NEGATIVE (NEGATIVE); MDMA (ECSTASY), URINE NEGATIVE (NEGATIVE); METHADONE,URINE NEGATIVE (NEGATIVE); METHAMPHETAMINES,URINE NEGATIVE (NEGATIVE); OPIATES,URINE NEGATIVE (NEGATIVE); OXYCODONE,URINE NEGATIVE (NEGATIVE); PHENCYCLIDINE,URINE NEGATIVE (NEGATIVE); TCA,URINE NEGATIVE (NEGATIVE)
== END 2022-02-17 11:18 | disposition home or self-care (01) ==
LOC: DL.ED 09:43
DX: S00.01XA Abrasion of scalp, initial encounter (principal); Z79.899 Other long term (current) drug therapy; V49.40XA Driver injured in collision with unspecified motor vehicles in traffic accident, initial encounter; Y92.410 Unspecified street and highway as the place of occurrence of the external cause
CPT/HCPCS: 36415; 70450; 71045; 72125; 72170; 80053; 80305-QW; 80307; 81001; 82150; 83690; 84484; 85025; 85610; 85730; 87086; 87088; 87186; 99285

== ENCOUNTER 2022-03-22 10:38 | Inpatient (IN) | payer MEDICARE, MEDICAID ==
[2022-03-22] MEDS ORDERED: Magnesium Hydroxide 400 MG/5 ML Susp 30 ML Cup PO PRN (15:53)
[2022-03-22] MEDS ORDERED: Sodium Chloride 0.9% 10 ML Syringe FLUSH PRN (15:53)
[2022-03-22] MEDS ORDERED: Albuterol/Ipratropium 3.0-0.5 MG/3 ML Neb Soln NEB PRN (15:53)
[2022-03-22] MEDS ORDERED: Polyethylene Glycol 3350 Powder 17 GM Packet PO PRN (15:53)
[2022-03-22] MEDS: Lactulose Soln 10 GM/15 ML 30 ML UD Cup PO SCH (21:59)
[2022-03-22] MEDS: Sodium Chloride 0.9% 10 ML Syringe FLUSH SCH (22:07)
[2022-03-22] MEDS: Potassium Chloride 10 MEQ Tab.ER PO SCH (22:07)
[2022-03-22] MEDS: AMMONIUM LAC TOP SCH (22:08)
[2022-03-22] MEDS: Doxazosin 2 MG Tab PO SCH (22:18)
[2022-03-23] MEDS: Furosemide 40 MG Tab PO SCH ×3 (05:38→12:19)
[2022-03-23] MEDS: Pantoprazole 40 MG Tab.CR PO SCH (05:38)
[2022-03-23] MEDS: Spironolactone 25 MG Tab PO SCH ×2 (08:45→14:27)
[2022-03-23] MEDS: Saccharomyces Boulardii (Probiotic) 250 MG Cap PO SCH (08:45)
[2022-03-23] MEDS: Potassium Chloride 10 MEQ Tab.ER PO SCH ×3 (08:45→21:34)
[2022-03-23] MEDS: cefTRIAXone 1 GM Vial IV SCH (08:47)
[2022-03-23] MEDS: Lactulose Soln 10 GM/15 ML 30 ML UD Cup PO SCH ×3 (08:48→21:35)
[2022-03-23] MEDS: Sodium Chloride 0.9% 10 ML Syringe FLUSH SCH ×2 (08:51→21:38)
[2022-03-23] MEDS: AMMONIUM LAC TOP SCH (08:53)
[2022-03-23] MEDS ORDERED: Ondansetron 4 MG Tab.DIS PO PRN (15:54)
[2022-03-23] MEDS ORDERED: diphenhydrAMINE 25 MG Tab PO ONE (19:30)
[2022-03-23] MEDS ORDERED: Promethazine 12.5 MG Supp RECTAL PRN (19:30)
[2022-03-23] MEDS: Doxazosin 2 MG Tab PO SCH (21:34)
[2022-03-24] MEDS: Furosemide 40 MG Tab PO SCH ×3 (06:18→13:28)
[2022-03-24] MEDS: Pantoprazole 40 MG Tab.CR PO SCH (06:18)
[2022-03-24] MEDS ORDERED: Ergocalciferol (Vitamin D2) 1.25 MG Cap PO SCH (09:00)
[2022-03-24] MEDS: AMMONIUM LAC TOP SCH ×3 (10:35→22:19)
[2022-03-24] MEDS: Potassium Chloride 10 MEQ Tab.ER PO SCH ×3 (10:36→22:14)
[2022-03-24] MEDS: Saccharomyces Boulardii (Probiotic) 250 MG Cap PO SCH (10:37)
[2022-03-24] MEDS: Lactulose Soln 10 GM/15 ML 30 ML UD Cup PO SCH ×3 (10:37→22:18)
[2022-03-24] MEDS: cefTRIAXone 1 GM Vial IV SCH (10:38)
[2022-03-24] MEDS: Spironolactone 25 MG Tab PO SCH ×2 (10:43→14:32)
[2022-03-24] MEDS: Sodium Chloride 0.9% 10 ML Syringe FLUSH SCH ×2 (10:44→22:35)
[2022-03-24] MEDS ORDERED: Prochlorperazine 25 MG Supp RECTAL PRN (14:52)
[2022-03-24] MEDS ORDERED: Ondansetron 4 MG/2 ML SDV IVPUSH PRN (14:53)
[2022-03-24] MEDS ORDERED: Metoclopramide 10 MG/2 ML SDV IVPUSH PRN (14:53)
[2022-03-24] MEDS ORDERED: Sodium Chloride 0.9% 1,000 ML IV SCH (15:00)
[2022-03-24 15:28] LABS: ANION GAP 14.7 mEq/L (7-13)
[2022-03-24] MEDS: Sodium Chloride 0.9% 10 ML Syringe FLUSH PRN (15:35)
[2022-03-24] MEDS ORDERED: Sodium Chloride 0.9% 1,500 ML IV SCH (20:30)
[2022-03-24] MEDS: Doxazosin 2 MG Tab PO SCH (22:14)
[2022-03-25] MEDS: Pantoprazole 40 MG Tab.CR PO SCH (05:39)
[2022-03-25 07:18] LABS: ANION GAP 12.5 mEq/L (7-13)
[2022-03-25] MEDS: Saccharomyces Boulardii (Probiotic) 250 MG Cap PO SCH (09:18)
[2022-03-25] MEDS: Potassium Chloride 10 MEQ Tab.ER PO SCH ×3 (09:19→21:51)
[2022-03-25] MEDS: Lactulose Soln 10 GM/15 ML 30 ML UD Cup PO SCH ×3 (09:20→21:51)
[2022-03-25] MEDS: cefTRIAXone 1 GM Vial IV SCH (09:21)
[2022-03-25] MEDS: Sodium Chloride 0.9% 10 ML Syringe FLUSH SCH ×2 (09:22→21:56)
[2022-03-25] MEDS: AMMONIUM LAC TOP SCH ×2 (09:23→22:00)
[2022-03-25] MEDS: Sodium Chloride 0.9% 10 ML Syringe FLUSH PRN (13:37)
[2022-03-25] MEDS: Doxazosin 2 MG Tab PO SCH (21:47)
[2022-03-26] MEDS: Pantoprazole 40 MG Tab.CR PO SCH (06:00)
[2022-03-26 07:58] LABS: ANION GAP 11.4 mEq/L (7-13)
[2022-03-26] MEDS: Potassium Chloride 10 MEQ Tab.ER PO SCH ×3 (08:42→22:04)
[2022-03-26] MEDS: Saccharomyces Boulardii (Probiotic) 250 MG Cap PO SCH (08:42)
[2022-03-26] MEDS: Lactulose Soln 10 GM/15 ML 30 ML UD Cup PO SCH ×3 (08:43→22:04)
[2022-03-26] MEDS: Sodium Chloride 0.9% 10 ML Syringe FLUSH SCH ×2 (08:47→22:06)
[2022-03-26] MEDS: AMMONIUM LAC TOP SCH ×2 (08:49→22:05)
[2022-03-26] MEDS ORDERED: Enoxaparin 40 MG/0.4 ML Syringe SUBCUT SCH (09:00)
[2022-03-26] MEDS: Doxazosin 2 MG Tab PO SCH (22:04)
[2022-03-27] MEDS: Pantoprazole 40 MG Tab.CR PO SCH (06:27)
[2022-03-27 07:10] LABS: ANION GAP 12.7 mEq/L (7-13)
[2022-03-27] MEDS: Lactulose Soln 10 GM/15 ML 30 ML UD Cup PO SCH ×3 (09:05→21:26)
[2022-03-27] MEDS: Saccharomyces Boulardii (Probiotic) 250 MG Cap PO SCH (09:06)
[2022-03-27] MEDS: Potassium Chloride 10 MEQ Tab.ER PO SCH ×3 (09:06→21:26)
[2022-03-27] MEDS: AMMONIUM LAC TOP SCH ×2 (09:08→21:27)
[2022-03-27] MEDS: Sodium Chloride 0.9% 10 ML Syringe FLUSH SCH ×2 (11:33→21:26)
[2022-03-27] MEDS: Doxazosin 2 MG Tab PO SCH (21:25)
[2022-03-28] MEDS: Pantoprazole 40 MG Tab.CR PO SCH (05:16)
[2022-03-28] MEDS: Lactulose Soln 10 GM/15 ML 30 ML UD Cup PO SCH ×3 (08:32→21:26)
[2022-03-28] MEDS: Potassium Chloride 10 MEQ Tab.ER PO SCH ×3 (08:33→21:26)
[2022-03-28] MEDS: Saccharomyces Boulardii (Probiotic) 250 MG Cap PO SCH (08:33)
[2022-03-28] MEDS: AMMONIUM LAC TOP SCH ×2 (08:34→21:32)
[2022-03-28] MEDS: Doxazosin 2 MG Tab PO SCH (21:26)
[2022-03-29] MEDS: Pantoprazole 40 MG Tab.CR PO SCH (06:09)
[2022-03-29 08:13] VITALS: BP 103/56; PULSE 99
[2022-03-29] MEDS: Saccharomyces Boulardii (Probiotic) 250 MG Cap PO SCH (09:48)
[2022-03-29] MEDS: Potassium Chloride 10 MEQ Tab.ER PO SCH (09:48)
[2022-03-29] MEDS: Lactulose Soln 10 GM/15 ML 30 ML UD Cup PO SCH (09:49)
[2022-03-29] MEDS: AMMONIUM LAC TOP SCH (09:52)
== END 2022-03-29 10:35 | disposition home or self-care (01) | DRG 947 ==
LOC: DL.MS 19:56 → UNDOADMIN 19:56
PROVIDERS: ADMIT Internal Medicine; ATTEND Internal Medicine
DX: R53.1 Weakness (principal); G93.41 Metabolic encephalopathy; N39.0 Urinary tract infection, site not specified; E87.1 Hypo-osmolality and hyponatremia; D68.9 Coagulation defect, unspecified; N40.1 Benign prostatic hyperplasia with lower urinary tract symptoms; N39.498 Other specified urinary incontinence; D69.6 Thrombocytopenia, unspecified; R73.9 Hyperglycemia, unspecified; E80.6 Other disorders of bilirubin metabolism; K75.4 Autoimmune hepatitis; K64.8 Other hemorrhoids; E55.9 Vitamin D deficiency, unspecified; I48.91 Unspecified atrial fibrillation; K74.60 Unspecified cirrhosis of liver; N39.41 Urge incontinence; D89.89 Other specified disorders involving the immune mechanism, not elsewhere classified; E66.9 Obesity, unspecified; Z79.899 Other long term (current) drug therapy; Z87.891 Personal history of nicotine dependence; Z68.38 Body mass index [BMI] 38.0-38.9, adult
CPT/HCPCS: 36415; 74176; 80053; 81001; 82140; 82947; 83605; 83735; 85025; 97110-GO; 97110-GP; 97161-GP; 97165-GO; 97530-GO; 97530-GP; 97535-GO; 99306; 99315; A9270-GY; J0696; J2405; J2765; J3490; J7030; J7500

== ENCOUNTER 2022-05-22 00:15 | Emergency (ER) | payer MEDICARE, MEDICAID ==
[2022-05-22 00:42] VITALS: BP 118/52; PULSE 97
[2022-05-22] MEDS ORDERED: Tamsulosin 0.4 MG Cap.ER PO ONE (01:35)
== END 2022-05-22 02:00 | disposition home or self-care (01) ==
LOC: DL.ED 00:15
DX: N20.0 Calculus of kidney (principal); I48.91 Unspecified atrial fibrillation; I50.9 Heart failure, unspecified; F03.90 Unspecified dementia, unspecified severity, without behavioral disturbance, psychotic disturbance, mood disturbance, and anxiety; E66.9 Obesity, unspecified; Z68.35 Body mass index [BMI] 35.0-35.9, adult; Z79.899 Other long term (current) drug therapy
CPT/HCPCS: 72192; 81001; 99284; 99285; A9270-GY

== ENCOUNTER 2022-05-25 12:29 | Emergency (ER) | payer MEDICARE, MEDICAID ==
[2022-05-25] MEDS ORDERED: Oxymetazoline 0.05% Nasal Spray 30 ML Bottle NAS ONE (12:44)
[2022-05-25] MEDS ORDERED: EPINEPHrine Nasal Soln 30 MG/30 ML Bottle NAS ONE (12:44)
[2022-05-25] MEDS ORDERED: Sodium Chloride 0.9% 10 ML Syringe FLUSH PRN (12:57)
[2022-05-25 13:01] VITALS: BP 112/60; PULSE 110
[2022-05-25 13:34] LABS: ANION GAP 10.9 mEq/L (7-13)
[2022-05-25 13:37] LABS: PTT,PARTIAL THROMBOPLSTIN TIME 27.6 SEC (22.0-34.0)
[2022-05-25] MEDS ORDERED: Sodium Chloride 0.9% 1,000 ML IV ONE (13:46)
== END 2022-05-25 15:27 | disposition home or self-care (01) ==
LOC: DL.ED 12:29
DX: R04.0 Epistaxis (principal); R00.0 Tachycardia, unspecified; R42 Dizziness and giddiness; I48.91 Unspecified atrial fibrillation; I50.9 Heart failure, unspecified; N40.0 Benign prostatic hyperplasia without lower urinary tract symptoms; Z79.899 Other long term (current) drug therapy; Z86.16 Personal history of COVID-19
CPT/HCPCS: 36415; 80053; 81003; 83880; 85025; 85610; 85730; 96360; 99284-25; 99285; A9270-GY; J3490; J7030

== ENCOUNTER 2022-05-29 20:54 | Inpatient (IN) | payer MEDICARE, MEDICAID ==
[2022-05-29] MEDS ORDERED: Sodium Chloride 0.9% 10 ML Syringe FLUSH PRN (21:09)
[2022-05-29 21:51] LABS: CHLORIDE,CL 97 mmol/L (98-107); SODIUM,NA 130 mmol/L (136-145)
[2022-05-29 21:58] LABS: ESTIMATED GFR 74 mL/min (>=60)
[2022-05-29 22:20] LABS: RESPIRATORY SYNCYTIAL VIR NAA NEGATIVE (NEGATIVE)
[2022-05-29 22:22] LABS: CORONAVIRUS COVID-19 NAA POSITIVE (NEGATIVE)
[2022-05-29 22:25] LABS: AMPHETAMINES,URINE NEGATIVE (NEGATIVE); BARBITURATES,URINE NEGATIVE (NEGATIVE); BENZODIAZEPINE,URINE NEGATIVE (NEGATIVE); MDMA (ECSTASY), URINE NEGATIVE (NEGATIVE); METHADONE,URINE NEGATIVE (NEGATIVE); METHAMPHETAMINES,URINE NEGATIVE (NEGATIVE); OPIATES,URINE NEGATIVE (NEGATIVE); OXYCODONE,URINE NEGATIVE (NEGATIVE); PHENCYCLIDINE,URINE NEGATIVE (NEGATIVE); TCA,URINE NEGATIVE (NEGATIVE)
[2022-05-29] MEDS ORDERED: Iopamidol 612 MG/ML 100 ML Bottle IVPUSH ONE (22:33)
[2022-05-30] MEDS ORDERED: Acetaminophen 325 MG Tab PO PRN (01:09)
[2022-05-30] MEDS ORDERED: Ondansetron 4 MG Tab.DIS PO PRN (01:09)
[2022-05-30] MEDS ORDERED: Sodium Chloride 0.9% 10 ML Syringe FLUSH PRN (01:09)
[2022-05-30] MEDS ORDERED: cefTRIAXone 1 GM Vial IVPUSH SCH (01:30)
[2022-05-30] MEDS ORDERED: Azithromycin 500 MG in Sodium Chloride 0.9% 250 ML IV SCH (01:30)
[2022-05-30] MEDS: Omeprazole 20 MG Cap.CR PO SCH (08:46)
[2022-05-30] MEDS: Potassium Chloride 10 MEQ Tab.ER PO SCH ×2 (08:46→21:27)
[2022-05-30] MEDS: Spironolactone 25 MG Tab PO SCH ×2 (08:47→21:27)
[2022-05-30] MEDS ORDERED: Multivitamins with Iron/Calcium/Folic Acid/Minerals Tab PO SCH (09:00)
[2022-05-30] MEDS ORDERED: Lactulose Soln 10 GM/15 ML 30 ML UD Cup PO SCH (09:00)
[2022-05-30] MEDS ORDERED: REMDESIVIR 200 MG in Sodium Chloride 0.9% 250 ML IV ONE (12:37)
[2022-05-30] MEDS: Lactulose Soln 10 GM/15 ML 30 ML UD Cup PO SCH (18:40)
[2022-05-31] MEDS: Lactulose Soln 10 GM/15 ML 30 ML UD Cup PO SCH ×2 (08:03→20:07)
[2022-05-31] MEDS: Potassium Chloride 10 MEQ Tab.ER PO SCH ×2 (08:04→20:07)
[2022-05-31] MEDS: Spironolactone 25 MG Tab PO SCH ×2 (08:04→20:08)
[2022-05-31] MEDS: Omeprazole 20 MG Cap.CR PO SCH (08:04)
[2022-05-31] MEDS: REMDESIVIR 100 MG in Sodium Chloride 0.9% 100 ML IV SCH (12:28)
[2022-05-31] MEDS ORDERED: Dexamethasone 6 MG TABLET PO ONE (17:00)
[2022-05-31] MEDS ORDERED: Enoxaparin 40 MG/0.4 ML Syringe SUBCUT ONE (21:00)
[2022-06-01 06:35] LABS: ANION GAP 11.7 mEq/L (7-13)
[2022-06-01] MEDS: Dexamethasone 6 MG TABLET PO SCH (08:31)
[2022-06-01] MEDS: Tamsulosin 0.4 MG Cap.ER PO SCH (08:32)
[2022-06-01] MEDS: Spironolactone 25 MG Tab PO SCH ×2 (08:32→21:04)
[2022-06-01] MEDS: Lactulose Soln 10 GM/15 ML 30 ML UD Cup PO SCH ×2 (08:32→21:04)
[2022-06-01] MEDS: Potassium Chloride 10 MEQ Tab.ER PO SCH ×2 (08:32→21:03)
[2022-06-01] MEDS: Enoxaparin 40 MG/0.4 ML Syringe SUBCUT SCH (08:32)
[2022-06-01] MEDS: Furosemide 40 MG Tab PO SCH (08:32)
[2022-06-01] MEDS: Omeprazole 20 MG Cap.CR PO SCH (08:32)
[2022-06-01] MEDS ORDERED: FLUOROURACIL TOP SCH (09:00)
[2022-06-01] MEDS: REMDESIVIR 100 MG in Sodium Chloride 0.9% 100 ML IV SCH (13:26)
[2022-06-01] MEDS: Doxazosin 2 MG Tab PO SCH (21:04)
[2022-06-02 07:40] LABS: ANION GAP 8.7 mEq/L (7-13)
[2022-06-02] MEDS: Dexamethasone 6 MG TABLET PO SCH (08:54)
[2022-06-02] MEDS: Potassium Chloride 10 MEQ Tab.ER PO SCH ×2 (08:55→20:37)
[2022-06-02] MEDS: Spironolactone 25 MG Tab PO SCH ×2 (08:55→20:38)
[2022-06-02] MEDS: Tamsulosin 0.4 MG Cap.ER PO SCH (08:55)
[2022-06-02] MEDS: Omeprazole 20 MG Cap.CR PO SCH (08:55)
[2022-06-02] MEDS: Furosemide 40 MG Tab PO SCH (08:55)
[2022-06-02] MEDS: Enoxaparin 40 MG/0.4 ML Syringe SUBCUT SCH (08:56)
[2022-06-02] MEDS: Lactulose Soln 10 GM/15 ML 30 ML UD Cup PO SCH ×2 (09:00→20:36)
[2022-06-02] MEDS ORDERED: Ergocalciferol (Vitamin D2) 1.25 MG Cap PO SCH (09:00)
[2022-06-02] MEDS: REMDESIVIR 100 MG in Sodium Chloride 0.9% 100 ML IV SCH (12:44)
[2022-06-02] MEDS: Doxazosin 2 MG Tab PO SCH (20:36)
[2022-06-03 06:43] LABS: ANION GAP 11.7 mEq/L (7-13)
[2022-06-03] MEDS: Lactulose Soln 10 GM/15 ML 30 ML UD Cup PO SCH (08:24)
[2022-06-03] MEDS: Furosemide 40 MG Tab PO SCH (08:24)
[2022-06-03] MEDS: Spironolactone 25 MG Tab PO SCH (08:24)
[2022-06-03] MEDS: Potassium Chloride 10 MEQ Tab.ER PO SCH (08:25)
[2022-06-03] MEDS: Omeprazole 20 MG Cap.CR PO SCH (08:25)
[2022-06-03] MEDS: Tamsulosin 0.4 MG Cap.ER PO SCH (08:25)
[2022-06-03] MEDS: Dexamethasone 6 MG TABLET PO SCH (08:25)
[2022-06-03] MEDS: Enoxaparin 40 MG/0.4 ML Syringe SUBCUT SCH (08:25)
[2022-06-03] MEDS: REMDESIVIR 100 MG in Sodium Chloride 0.9% 100 ML IV SCH (12:12)
[2022-06-03 13:24] VITALS: BP 123/67; PULSE 75
== END 2022-06-03 14:10 | disposition home or self-care (01) | DRG 871 ==
LOC: DL.ED 20:54 → DL.MS 05-30 00:21 → OBSVTOIN 05-30 01:09
PROVIDERS: ADMIT Internal Medicine; ATTEND Internal Medicine
PROC: XW033E5 Introduction of Remdesivir Anti-infective into Peripheral Vein, Percutaneous Approach, New Technology Group 5 (ICD-10-PCS; principal; 2022-05-30)
PROC: 3E02340 Introduction of Influenza Vaccine into Muscle, Percutaneous Approach (ICD-10-PCS; 2022-06-03)
DX: A41.89 Other specified sepsis (principal); R53.1 Weakness; N20.0 Calculus of kidney; G93.41 Metabolic encephalopathy; U07.1 COVID-19; J12.82 Pneumonia due to coronavirus disease 2019; E66.9 Obesity, unspecified; K75.4 Autoimmune hepatitis; E87.1 Hypo-osmolality and hyponatremia; N39.498 Other specified urinary incontinence; R35.1 Nocturia; E87.20 Acidosis, unspecified; W19.XXXA Unspecified fall, initial encounter; D84.9 Immunodeficiency, unspecified; N20.1 Calculus of ureter; D61.818 Other pancytopenia; R65.10 Systemic inflammatory response syndrome (SIRS) of non-infectious origin without acute organ dysfunction; Z23 Encounter for immunization; I48.91 Unspecified atrial fibrillation; D63.8 Anemia in other chronic diseases classified elsewhere; K72.90 Hepatic failure, unspecified without coma; K74.60 Unspecified cirrhosis of liver; E88.09 Other disorders of plasma-protein metabolism, not elsewhere classified; R73.9 Hyperglycemia, unspecified; K21.9 Gastro-esophageal reflux disease without esophagitis; N40.1 Benign prostatic hyperplasia with lower urinary tract symptoms; R35.0 Frequency of micturition; N39.41 Urge incontinence; E55.9 Vitamin D deficiency, unspecified; F03.90 Unspecified dementia, unspecified severity, without behavioral disturbance, psychotic disturbance, mood disturbance, and anxiety; I50.9 Heart failure, unspecified; H54.7 Unspecified visual loss; H91.90 Unspecified hearing loss, unspecified ear; E83.39 Other disorders of phosphorus metabolism; E87.8 Other disorders of electrolyte and fluid balance, not elsewhere classified; R26.81 Unsteadiness on feet; D69.6 Thrombocytopenia, unspecified; Z79.01 Long term (current) use of anticoagulants; Z87.891 Personal history of nicotine dependence; Z91.14 Patient's other noncompliance with medication regimen; Z79.899 Other long term (current) drug therapy; Z86.16 Personal history of COVID-19; Z98.49 Cataract extraction status, unspecified eye
CPT/HCPCS: 0241U; 36415; 71045; 74178; 80053; 80305-QW; 80307; 81001; 82140; 82248; 82607; 82746; 83605; 83735; 83880; 84100; 84145; 84443; 84484; 85025; 85610; 86140; 87040; 93005; 93010; 97110-GO; 97116-GP; 97165-GO; 97530-GO; 99232; 99233; 99238; 99285; A9270-GY; G0008; J0248; J0456; J0696; J1650; J3490; J7050; J8540; Q9967

== ENCOUNTER 2022-07-28 11:41 | Inpatient (IN) | payer MEDICARE, MEDICAID ==
[2022-07-28] MEDS ORDERED: Metoprolol Tartrate 5 MG/5 ML SDV IVPUSH ONE ×2 (13:38→14:00)
[2022-07-28] MEDS ORDERED: Furosemide 100 MG/10 ML SDV IVPUSH ONE (13:39)
[2022-07-28 13:51] LABS: PTT,PARTIAL THROMBOPLSTIN TIME 27.5 SEC (22.0-34.0)
[2022-07-28] MEDS: Sodium Chloride 0.9% 10 ML Syringe FLUSH PRN (13:51)
[2022-07-28] MEDS ORDERED: Metoprolol Tartrate 25 MG Tab PO ONE (14:01)
[2022-07-28] MEDS ORDERED: Magnesium Sulfate/Water 2 GM in Premix Bag 1 BAG IV ONE (14:21)
[2022-07-28] MEDS ORDERED: Diltiazem 25 MG/5 ML SDV IVPUSH ONE (15:42)
[2022-07-28] MEDS ORDERED: Diltiazem 125 MG in Sodium Chloride 0.9% 100 ML IV SCH (15:45)
[2022-07-28] MEDS ORDERED: Magnesium Sulfate/Water 50 ML ONE (15:51)
[2022-07-28] MEDS ORDERED: Diltiazem 125 MG/25 ML SDV ONE (15:58)
[2022-07-28] MEDS ORDERED: Polyethylene Glycol 3350 Powder 17 GM Packet PO PRN (17:47)
[2022-07-28] MEDS ORDERED: Ondansetron 4 MG/2 ML SDV IVPUSH PRN (17:47)
[2022-07-28] MEDS ORDERED: Acetaminophen 325 MG Tab PO PRN (17:47)
[2022-07-28] MEDS ORDERED: Magnesium Hydroxide 400 MG/5 ML Susp 30 ML Cup PO PRN (17:47)
[2022-07-28] MEDS ORDERED: Albuterol/Ipratropium 3.0-0.5 MG/3 ML Neb Soln NEB PRN (17:47)
[2022-07-28] MEDS ORDERED: Non-Formulary Medication 1 Each (Ammonium Lactate [Lac-Hydrin 12% Crm] 140 GM Tube) TOP PRN (21:37)
[2022-07-28] MEDS ORDERED: Acetaminophen 500 MG Tab PO PRN (21:37)
[2022-07-28] MEDS ORDERED: Furosemide 100 MG/10 ML SDV ONE (22:08)
[2022-07-28] MEDS: Furosemide 100 MG in Sodium Chloride 0.9% 90 ML IV SCH (22:24)
[2022-07-28] MEDS ORDERED: Albumin 25% 50 ML ONE (23:46)
[2022-07-28] MEDS: Albumin 25% 12.5 GM in Premix Bag 1 BAG IV SCH (23:58)
[2022-07-29] MEDS ORDERED: Albumin 25% 50 ML ONE ×2 (04:51→11:58)
[2022-07-29] MEDS: Omeprazole 20 MG Cap.CR PO SCH (05:02)
[2022-07-29] MEDS: Albumin 25% 12.5 GM in Premix Bag 1 BAG IV SCH ×3 (05:03→17:29)
[2022-07-29 06:39] LABS: ANION GAP 8.5 mEq/L (7-13)
[2022-07-29] MEDS: Lactulose Soln 10 GM/15 ML 30 ML UD Cup PO SCH ×3 (08:26→20:26)
[2022-07-29] MEDS: Spironolactone 25 MG Tab PO SCH ×2 (08:27→20:02)
[2022-07-29] MEDS: Potassium Chloride 10 MEQ Tab.ER PO SCH ×2 (08:27→20:26)
[2022-07-29] MEDS: Metoprolol Tartrate 25 MG Tab PO SCH ×2 (08:27→20:02)
[2022-07-29] MEDS ORDERED: Metoprolol Tartrate 50 MG Tab PO SCH (09:00)
[2022-07-29] MEDS: Sodium Chloride 0.9% 10 ML Syringe FLUSH PRN (09:25)
[2022-07-29] MEDS: Midodrine 2.5 MG Tab PO PRN (19:52)
[2022-07-29] MEDS: Doxazosin 2 MG Tab PO SCH (20:02)
[2022-07-29] MEDS: Tamsulosin 0.4 MG Cap.ER PO SCH (20:26)
[2022-07-29] MEDS: FLUOROURACIL 5% TOP SCH (22:40)
[2022-07-30] MEDS: Furosemide 100 MG in Sodium Chloride 0.9% 90 ML IV SCH (01:56)
[2022-07-30] MEDS: Omeprazole 20 MG Cap.CR PO SCH (06:09)
[2022-07-30] MEDS: Metoprolol Tartrate 25 MG Tab PO SCH (09:22)
[2022-07-30] MEDS: FLUOROURACIL 5% TOP SCH ×2 (09:22→22:55)
[2022-07-30] MEDS: Potassium Chloride 10 MEQ Tab.ER PO SCH ×2 (09:23→22:53)
[2022-07-30] MEDS: Lactulose Soln 10 GM/15 ML 30 ML UD Cup PO SCH ×3 (09:23→22:54)
[2022-07-30] MEDS: Spironolactone 25 MG Tab PO SCH ×2 (09:23→22:53)
[2022-07-30] MEDS ORDERED: Hydrochlorothiazide 25 MG Tab PO ONE (12:00)
[2022-07-30] MEDS: Tamsulosin 0.4 MG Cap.ER PO SCH (22:52)
[2022-07-30] MEDS: Metoprolol Tartrate 50 MG Tab PO SCH (22:53)
[2022-07-30] MEDS: Doxazosin 2 MG Tab PO SCH (22:53)
[2022-07-31] MEDS: Furosemide 100 MG in Sodium Chloride 0.9% 90 ML IV SCH ×2 (01:48→22:21)
[2022-07-31] MEDS: Omeprazole 20 MG Cap.CR PO SCH (05:40)
[2022-07-31] MEDS: Midodrine 2.5 MG Tab PO PRN (05:40)
[2022-07-31 06:01] LABS: ANION GAP 9.6 mEq/L (7-13)
[2022-07-31] MEDS: Potassium Chloride 10 MEQ Tab.ER PO SCH ×2 (08:20→22:16)
[2022-07-31] MEDS: Lactulose Soln 10 GM/15 ML 30 ML UD Cup PO SCH ×3 (08:20→22:18)
[2022-07-31] MEDS: FLUOROURACIL 5% TOP SCH ×2 (08:22→22:19)
[2022-07-31] MEDS ORDERED: Magnesium Sulfate/Water 2 GM in Premix Bag 1 BAG IV ONE (08:39)
[2022-07-31] MEDS ORDERED: Aspirin 325 MG Tab PO ONE (08:40)
[2022-07-31] MEDS: Spironolactone 25 MG Tab PO SCH ×2 (08:46→22:25)
[2022-07-31] MEDS: Metoprolol Tartrate 50 MG Tab PO SCH ×2 (08:47→22:39)
[2022-07-31] MEDS ORDERED: Albumin Human 25 GM in Premix Bag 1 BAG IV SCH (09:00)
[2022-07-31] MEDS: Midodrine 2.5 MG Tab PO SCH ×2 (11:47→17:08)
[2022-07-31] MEDS ORDERED: Chlorthalidone 25 MG Tab PO ONE (13:00)
[2022-07-31] MEDS: Albumin Human 25 GM in Premix Bag 1 BAG IV SCH ×2 (14:08→21:58)
[2022-07-31] MEDS ORDERED: ALBUMIN HUMAN ONE (21:44)
[2022-07-31] MEDS: Tamsulosin 0.4 MG Cap.ER PO SCH (22:18)
[2022-07-31] MEDS: Doxazosin 2 MG Tab PO SCH (22:25)
[2022-08-01] MEDS: Albumin Human 25 GM in Premix Bag 1 BAG IV SCH ×2 (02:28→11:58)
[2022-08-01] MEDS: Midodrine 2.5 MG Tab PO SCH ×3 (05:23→14:59)
[2022-08-01] MEDS: Omeprazole 20 MG Cap.CR PO SCH (05:23)
[2022-08-01] MEDS: Potassium Chloride 10 MEQ Tab.ER PO SCH ×2 (08:36→21:46)
[2022-08-01] MEDS: Spironolactone 25 MG Tab PO SCH ×2 (08:36→21:46)
[2022-08-01] MEDS: Aspirin 325 MG Tab PO SCH (08:36)
[2022-08-01] MEDS: Metoprolol Tartrate 50 MG Tab PO SCH (08:37)
[2022-08-01] MEDS: Lactulose Soln 10 GM/15 ML 30 ML UD Cup PO SCH ×3 (08:39→21:45)
[2022-08-01] MEDS: FLUOROURACIL 5% TOP SCH ×2 (08:41→21:53)
[2022-08-01] MEDS ORDERED: Magnesium Sulfate/Water 2 GM in Premix Bag 1 BAG IV ONE (09:09)
[2022-08-01] MEDS ORDERED: Metoprolol Tartrate 5 MG/5 ML SDV IVPUSH PRN (09:20)
[2022-08-01] MEDS: Furosemide 100 MG in Sodium Chloride 0.9% 90 ML IV SCH (18:27)
[2022-08-01] MEDS: Doxazosin 2 MG Tab PO SCH (21:45)
[2022-08-01] MEDS: Metoprolol Tartrate 25 MG Tab PO SCH (21:46)
[2022-08-01] MEDS: Tamsulosin 0.4 MG Cap.ER PO SCH (21:46)
[2022-08-02] MEDS: Omeprazole 20 MG Cap.CR PO SCH (05:27)
[2022-08-02] MEDS: Midodrine 2.5 MG Tab PO SCH ×3 (05:27→16:11)
[2022-08-02] MEDS: Potassium Chloride 10 MEQ Tab.ER PO SCH (08:54)
[2022-08-02] MEDS: Aspirin 325 MG Tab PO SCH (08:54)
[2022-08-02] MEDS: Spironolactone 25 MG Tab PO SCH (08:54)
[2022-08-02] MEDS: Metoprolol Tartrate 25 MG Tab PO SCH (08:54)
[2022-08-02] MEDS: Lactulose Soln 10 GM/15 ML 30 ML UD Cup PO SCH ×2 (08:55→14:20)
[2022-08-02] MEDS: FLUOROURACIL 5% TOP SCH (08:58)
[2022-08-02] MEDS ORDERED: Chlorthalidone 25 MG Tab PO SCH (12:00)
[2022-08-02 16:32] VITALS: BP 103/44; PULSE 71
[2022-08-04] MEDS ORDERED: Ergocalciferol (Vitamin D2) 1.25 MG Cap PO SCH (09:00)
== END 2022-08-02 20:29 | disposition home or self-care (01) | DRG 291 ==
LOC: DL.ED 11:41 → UNDOADMIN 16:19 → DL.MS 16:19 → DL.ED 16:32
PROVIDERS: ADMIT Internal Medicine; ATTEND Internal Medicine
DX: I50.33 Acute on chronic diastolic (congestive) heart failure (principal); E43 Unspecified severe protein-calorie malnutrition; E87.20 Acidosis, unspecified; I31.39 Other pericardial effusion (noninflammatory); I48.91 Unspecified atrial fibrillation; L57.0 Actinic keratosis; D69.6 Thrombocytopenia, unspecified; K74.60 Unspecified cirrhosis of liver; D63.1 Anemia in chronic kidney disease; Z66 Do not resuscitate; I87.2 Venous insufficiency (chronic) (peripheral); E66.9 Obesity, unspecified; F03.90 Unspecified dementia, unspecified severity, without behavioral disturbance, psychotic disturbance, mood disturbance, and anxiety; E87.8 Other disorders of electrolyte and fluid balance, not elsewhere classified; K75.4 Autoimmune hepatitis; H91.90 Unspecified hearing loss, unspecified ear; N40.1 Benign prostatic hyperplasia with lower urinary tract symptoms; R35.1 Nocturia; I08.0 Rheumatic disorders of both mitral and aortic valves; R73.9 Hyperglycemia, unspecified; M19.90 Unspecified osteoarthritis, unspecified site; K21.9 Gastro-esophageal reflux disease without esophagitis; Z87.891 Personal history of nicotine dependence; Z86.16 Personal history of COVID-19; Z79.82 Long term (current) use of aspirin; Z79.899 Other long term (current) drug therapy; Z85.828 Personal history of other malignant neoplasm of skin; Z98.49 Cataract extraction status, unspecified eye; Z90.49 Acquired absence of other specified parts of digestive tract; Z98.890 Other specified postprocedural states; Z68.34 Body mass index [BMI] 34.0-34.9, adult
CPT/HCPCS: 36415; 51702; 71045; 80053; 81003; 83605; 83735; 83880; 84439; 84443; 84484; 85025; 85610; 85730; 86140; 87040; 93010; 93970; 99285; A9270-GY; J1940; J2405; J3475; J3490; J7500; P9047

== ENCOUNTER 2022-09-02 09:17 | Emergency (ER) | payer MEDICARE, MEDICAID ==
[2022-09-02 10:17] VITALS: BP 105/71; PULSE 89
== END 2022-09-02 11:41 | disposition home or self-care (01) ==
LOC: DL.ED 09:17
DX: S01.21XA Laceration without foreign body of nose, initial encounter (principal); I48.91 Unspecified atrial fibrillation; I50.9 Heart failure, unspecified; E66.9 Obesity, unspecified; Z68.36 Body mass index [BMI] 36.0-36.9, adult; Z86.16 Personal history of COVID-19; Z79.899 Other long term (current) drug therapy; Z79.82 Long term (current) use of aspirin; W01.0XXA Fall on same level from slipping, tripping and stumbling without subsequent striking against object, initial encounter; Y92.002 Bathroom of unspecified non-institutional (private) residence as the place of occurrence of the external cause
CPT/HCPCS: 12011; 70450; 70486; 99283

== ENCOUNTER 2023-03-09 10:51 | Emergency (ER) | payer MEDICARE, MEDICAID ==
[~2023-03-09 10:51] MED LIST changes: +Fat Emulsion 250 ML IV SCH
[2023-03-09] MEDS ORDERED: Ondansetron 4 MG/2 ML SDV IVPUSH ONE (11:00)
[2023-03-09] MEDS ORDERED: Ondansetron 4 MG/2 ML SDV ONE (11:01)
[2023-03-09 11:06] LABS: HEMATOCRIT 34.4 % (40.0-54.0); HEMOGLOBIN 12.2 g/dL (14.0-18.0); MEAN CORPUSCULAR HEMOGLOBIN 40.7 pg (27.0-34.0); MEAN CORPUSCULAR HGB CONC 35.5 g/dL (33.0-35.0); MEAN CORPUSCULAR VOLUME 114.7 fL (80-100); PLATELET COUNT,PLT 91 10^3/uL (150-450); WHITE BLOOD CELL COUNT,WBC 4.2 10^3/uL (5.0-10.0)
[2023-03-09 11:10] LABS: BASOPHILS PERCENT AUTO 0.5 % (0.0-1.0); EOSINOPHILS PERCENT AUTO 1.9 % (1.0-3.0); MONOCYTES PERCENT AUTO 17.7 % (2-8); NEUTROPHILS PERCENT AUTO 61.9 % (42.2-75.2)
[2023-03-09 11:22] VITALS: BP 82/40; PULSE 107
[2023-03-09 11:24] LABS: INR 1.2 (0.9-1.2); PTT,PARTIAL THROMBOPLSTIN TIME 27.4 SEC (22.0-34.0)
[2023-03-09 11:27] LABS: ALANINE AMINOTRANSFERASE,ALT 21 U/L (16-63); ALBUMIN 2.7 g/dL (3.4-5.0); ALKALINE PHOSPHATASE 103 U/L (46-116); ANION GAP 12.4 mEq/L (7-13); ASPARTATE AMNIOTRANSFERASE,AST 28 U/L (15-37); BLOOD UREA NITROGEN,BUN 31 mg/dL (7-18); CALCIUM 9.3 mg/dL (8.5-10.1); CARBON DIOXIDE,CO2 27 mmol/L (21-32); CHLORIDE,CL 94 mmol/L (98-107); GLUCOSE RANDOM 169 mg/dL (70-99); POTASSIUM,K 4.4 mmol/L (3.5-5.1); SODIUM,NA 129 mmol/L (136-145)
[2023-03-09 11:39] LABS: BAND PERCENT MAN 3 %; EOSINOPHILS PERCENT MAN 3 % (1-3); LYMPHOCYTES PERCENT MAN 23 % (20-50); MONOCYTES PERCENT MAN 10 % (2-8); SEG NEUTROPHILS PERCENT MAN 61 % (42-75)
[2023-03-09 11:43] LABS: LACTIC ACID 5.4 mmol/L (0.4-2.0)
[2023-03-09] MEDS ORDERED: Calcium Gluconate 10% 1 GM/10 ML SDV ONE (11:46)
[2023-03-09] MEDS ORDERED: Calcium Gluconate 10% 1 GM/10 ML SDV IVPUSH ONE (11:47)
[2023-03-09 11:56] LABS: A/G RATIO 0.96; CREATININE 1.63 mg/dL (0.70-1.30); PROTEIN TOTAL,TP 5.5 g/dL (6.4-8.2)
[2023-03-09 11:57] LABS: ESTIMATED GFR 41 mL/min (>=60)
[2023-03-09] MEDS ORDERED: Norepinephrine Bit/D5W Premix 250 ML IV SCH (12:00)
[2023-03-09] MEDS ORDERED: Sodium Chloride 0.9% 1,000 ML IV SCH (12:15)
== END 2023-03-09 13:01 ==
LOC: DL.ED 10:51
DX: T46.5X1A Poisoning by other antihypertensive drugs, accidental (unintentional), initial encounter (principal); T44.7X1A Poisoning by beta-adrenoreceptor antagonists, accidental (unintentional), initial encounter; I50.9 Heart failure, unspecified; E66.9 Obesity, unspecified; Z86.16 Personal history of COVID-19; Z79.82 Long term (current) use of aspirin; Z79.899 Other long term (current) drug therapy
CPT/HCPCS: 36415; 71045; 80053; 82140; 83605; 83735; 83880; 84145; 85025; 85610; 85730; 86140; 93005; 93010; 96365; 96367; 96375; 99285; J0612; J2405; J7030; J3490

== ENCOUNTER 2023-07-03 12:40 | Inpatient (IN) | payer MEDICARE, MEDICAID ==
[2023-07-03 13:25] LABS: HEMATOCRIT 36.6 % (40.0-54.0); HEMOGLOBIN 12.8 g/dL (14.0-18.0); MEAN CORPUSCULAR HEMOGLOBIN 39.8 pg (27.0-34.0); MEAN CORPUSCULAR VOLUME 113.7 fL (80-100); PLATELET COUNT,PLT 64 10^3/uL (150-450); RED BLOOD CELL COUNT 3.22 10^6/uL (4.6-6.2); WHITE BLOOD CELL COUNT,WBC 4.6 10^3/uL (5.0-10.0)
[2023-07-03 13:28] LABS: LYMPHOCYTES PERCENT AUTO 28.2 % (20.5-50.1); MONOCYTES PERCENT AUTO 17.8 % (2-8); NEUTROPHILS PERCENT AUTO 49.4 % (42.2-75.2)
[2023-07-03 13:29] LABS: BASOPHILS PERCENT AUTO 0.7 % (0.0-1.0); EOSINOPHILS PERCENT AUTO 3.9 % (1.0-3.0)
[2023-07-03 13:47] LABS: B-TYPE NATRIURETIC PEPTIDE,BNP 42 pg/ml (0-100)
[2023-07-03 13:49] LABS: ALANINE AMINOTRANSFERASE,ALT 27 U/L (16-63); ALBUMIN 2.6 g/dL (3.4-5.0); ALKALINE PHOSPHATASE 148 U/L (46-116); ANION GAP 13.4 mEq/L (7-13); ASPARTATE AMNIOTRANSFERASE,AST 34 U/L (15-37); BILIRUBIN TOTAL 4.3 mg/dL (0.2-1.0); BLOOD UREA NITROGEN,BUN 29 mg/dL (7-18); BUN/CREATININE RATIO 22.8 (No establ ref range); CALCIUM 8.7 mg/dL (8.5-10.1); CARBON DIOXIDE,CO2 26 mmol/L (21-32); CHLORIDE,CL 99 mmol/L (98-107); CREATININE 1.27 mg/dL (0.70-1.30); GLUCOSE RANDOM 197 mg/dL (70-99); MAGNESIUM 2.2 mg/dL (1.8-2.4); POTASSIUM,K 4.4 mmol/L (3.5-5.1); PROTEIN TOTAL,TP 5.6 g/dL (6.4-8.2); SODIUM,NA 134 mmol/L (136-145)
[2023-07-03 13:58] LABS: A/G RATIO 0.87; ESTIMATED GFR 55 mL/min (>=60)
[2023-07-03 14:12] LABS: BAND PERCENT MAN 2 %; EOSINOPHILS PERCENT MAN 2 % (1-3); LYMPHOCYTES PERCENT MAN 33 % (20-50); MONOCYTES PERCENT MAN 13 % (2-8); SEG NEUTROPHILS PERCENT MAN 50 % (42-75)
[2023-07-03 14:20] LABS: APPEARANCE,URINE CLEAR (CLEAR); BILIRUBIN,URINE NEGATIVE (NEGATIVE); COLOR,URINE YELLOW (YELLOW); GLUCOSE,URINE NEGATIVE (NEGATIVE); KETONES,URINE NEGATIVE (NEGATIVE); LEUKOCYTE ESTERASE,URINE SMALL (NEGATIVE); NITRITE,URINE NEGATIVE (NEGATIVE); OCCULT BLOOD,URINE TRACE-INTACT (NEGATIVE); PH,URINE 6.5 (5.0-9.0); PROTEIN,URINE NEGATIVE (NEGATIVE); UROBILINOGEN,URINE >=8.0 mg/dL (0.2-1.0)
[2023-07-03 14:28] LABS: BACTERIA,URINE MODERATE /HPF (0-FEW/HPF); EPITHELIAL CELLS,URINE FEW /HPF (NOT SEEN)
[2023-07-03 14:29] LABS: AMORPHOUS SEDIMENT,URINE FEW /HPF (NOT SEEN); HYALINE CASTS,URINE RARE; RBC,URINE 0-5 /HPF (0-5); WBC,URINE 50-75 /HPF (0-5/HPF)
[2023-07-03] MEDS: cefTRIAXone 1 GM Vial IVPUSH ONE (17:05)
[2023-07-03] MEDS: Sodium Chloride 0.9% 1,000 ML IV ONE (17:05)
[2023-07-03] MEDS ORDERED: Albuterol/Ipratropium 3.0-0.5 MG/3 ML Neb Soln NEB PRN (17:55)
[2023-07-03] MEDS ORDERED: Naloxone 2 MG/2 ML Syringe IVPUSH PRN (17:55)
[2023-07-03] MEDS ORDERED: HYDROmorphone 0.5 MG/0.5 ML Syringe IVPUSH PRN (17:55)
[2023-07-03] MEDS ORDERED: Ondansetron 4 MG/2 ML SDV IVPUSH PRN (17:55)
[2023-07-03] MEDS ORDERED: Acetaminophen 325 MG Tab PO PRN (18:10)
[2023-07-03] MEDS ORDERED: Metoprolol Tartrate 5 MG/5 ML SDV IVPUSH PRN (18:12)
[2023-07-03] MEDS ORDERED: hydrALAZINE 20 MG/ML SDV IVPUSH PRN (18:12)
[2023-07-03] MEDS: Furosemide 20 MG/2 ML VIAL IVPUSH ONE (19:42)
[2023-07-03] MEDS ORDERED: Nystatin Topical Powder 30 GM Bottle TOP PRN (21:00)
[2023-07-03] MEDS: Lactulose Soln 10 GM/15 ML 30 ML UD Cup PO SCH (21:18)
[2023-07-03] MEDS: Spironolactone 25 MG Tab PO SCH (21:19)
[2023-07-04] MEDS: Omeprazole 20 MG Cap.CR PO SCH (05:54)
[2023-07-04 06:49] LABS: A/G RATIO 0.9; ALBUMIN 2.7 g/dL (3.4-5.0); ANION GAP 11.9 mEq/L (7-13); BILIRUBIN TOTAL 5.2 mg/dL (0.2-1.0); BUN/CREATININE RATIO 19.8 (No establ ref range); CALCIUM 8.4 mg/dL (8.5-10.1); CREATININE 1.06 mg/dL (0.70-1.30); EST CRCL DRUG DOSING (CG) 43.51 mL/min; POTASSIUM,K 3.9 mmol/L (3.5-5.1); PROTEIN TOTAL,TP 5.7 g/dL (6.4-8.2)
[2023-07-04 06:52] LABS: BASOPHILS PERCENT AUTO 0.5 % (0.0-1.0); EOSINOPHILS PERCENT AUTO 5.7 % (1.0-3.0); HEMOGLOBIN 13.8 g/dL (14.0-18.0); LYMPHOCYTES PERCENT AUTO 21.9 % (20.5-50.1); MEAN CORPUSCULAR HEMOGLOBIN 40.4 pg (27.0-34.0); MEAN CORPUSCULAR HGB CONC 35.4 g/dL (33.0-35.0); MONOCYTES PERCENT AUTO 18.4 % (2-8); NEUTROPHILS PERCENT AUTO 53.5 % (42.2-75.2); PLATELET COUNT,PLT 55 10^3/uL (150-450); RED BLOOD CELL COUNT 3.42 10^6/uL (4.6-6.2)
[2023-07-04 06:55] LABS: WHITE BLOOD CELL COUNT,WBC 3.7 10^3/uL (5.0-10.0)
[2023-07-04 07:46] LABS: HEMOGLOBIN A1C 4.4 % (<5.7)
[2023-07-04] MEDS: Saccharomyces Boulardii (Probiotic) 250 MG Cap PO SCH (09:07)
[2023-07-04] MEDS: Midodrine 5 MG Tab PO SCH ×2 (09:08→13:45)
[2023-07-04] MEDS: Digoxin 125 MCG Tab PO SCH (09:10)
[2023-07-04] MEDS: Tamsulosin 0.4 MG Cap.ER PO SCH (09:12)
[2023-07-04] MEDS: Spironolactone 25 MG Tab PO SCH (09:12)
[2023-07-04] MEDS: cefTRIAXone 1 GM Vial IVPUSH SCH (09:13)
[2023-07-04] MEDS: Furosemide 40 MG Tab PO SCH (11:24)
[2023-07-04] MEDS: Menthol/Zinc Oxide Ointment 113 GM Tube TOP PRN (16:48)
[2023-07-05 06:39] LABS: ALBUMIN 2.4 g/dL (3.4-5.0); ANION GAP 9.3 mEq/L (7-13); CALCIUM 8.3 mg/dL (8.5-10.1); MAGNESIUM 1.9 mg/dL (1.8-2.4); POTASSIUM,K 4.3 mmol/L (3.5-5.1)
[2023-07-05 06:49] LABS: A/G RATIO 0.86; BUN/CREATININE RATIO 18.8 (No establ ref range); CREATININE 1.01 mg/dL (0.70-1.30); EST CRCL DRUG DOSING (CG) 45.67 mL/min
[2023-07-05 06:56] LABS: PROTEIN TOTAL,TP 5.2 g/dL (6.4-8.2)
[2023-07-05 07:19] LABS: HEMATOCRIT 35.7 % (40.0-54.0); HEMOGLOBIN 12.6 g/dL (14.0-18.0); MEAN CORPUSCULAR HGB CONC 35.3 g/dL (33.0-35.0); MEAN CORPUSCULAR VOLUME 113.3 fL (80-100); PLATELET COUNT,PLT 60 10^3/uL (150-450); RED BLOOD CELL COUNT 3.15 10^6/uL (4.6-6.2)
[2023-07-05 07:21] LABS: BASOPHILS PERCENT AUTO 1.2 % (0.0-1.0); EOSINOPHILS PERCENT AUTO 5.5 % (1.0-3.0); LYMPHOCYTES PERCENT AUTO 25.6 % (20.5-50.1); MONOCYTES PERCENT AUTO 17.9 % (2-8); NEUTROPHILS PERCENT AUTO 49.8 % (42.2-75.2)
[2023-07-05 07:25] LABS: BAND PERCENT MAN 4 %; LYMPHOCYTES PERCENT MAN 23 % (20-50); MONOCYTES PERCENT MAN 16 % (2-8); SEG NEUTROPHILS PERCENT MAN 55 % (42-75)
[2023-07-05 07:26] LABS: BASOPHILS PERCENT MAN 0; EOSINOPHILS PERCENT MAN 2 % (1-3)
[2023-07-05] MEDS: Ciprofloxacin in D5W 200 MG in Premix Bag 1 BAG IV SCH (09:17)
[2023-07-06 06:35] LABS: EOSINOPHILS PERCENT AUTO 4.7 % (1.0-3.0); HEMATOCRIT 34.9 % (40.0-54.0); HEMOGLOBIN 12.2 g/dL (14.0-18.0); LYMPHOCYTES PERCENT AUTO 26.8 % (20.5-50.1); MEAN CORPUSCULAR HEMOGLOBIN 39.5 pg (27.0-34.0); MEAN CORPUSCULAR VOLUME 112.9 fL (80-100); MONOCYTES PERCENT AUTO 18.9 % (2-8); NEUTROPHILS PERCENT AUTO 48.6 % (42.2-75.2); PLATELET COUNT,PLT 58 10^3/uL (150-450); RED BLOOD CELL COUNT 3.09 10^6/uL (4.6-6.2); WHITE BLOOD CELL COUNT,WBC 3.8 10^3/uL (5.0-10.0)
[2023-07-06 07:00] LABS: A/G RATIO 0.89; ALBUMIN 2.4 g/dL (3.4-5.0); ANION GAP 11.2 mEq/L (7-13); BUN/CREATININE RATIO 17.3 (No establ ref range); CALCIUM 8.1 mg/dL (8.5-10.1); CREATININE 0.98 mg/dL (0.70-1.30); EST CRCL DRUG DOSING (CG) 47.07 mL/min; MAGNESIUM 1.8 mg/dL (1.8-2.4); POTASSIUM,K 4.2 mmol/L (3.5-5.1); PROTEIN TOTAL,TP 5.1 g/dL (6.4-8.2)
[2023-07-06] MEDS: Ergocalciferol (Vitamin D2) 1.25 MG Cap PO SCH (08:34)
[2023-07-06] MEDS: Acetaminophen 325 MG Tab PO PRN (08:35)
[2023-07-06] MEDS: Bacitracin Oint 28.35 GM Tube TOP SCH (11:11)
[2023-07-07] MEDS: traMADol 50 MG Tab PO PRN (21:15)
[2023-07-08 07:47] VITALS: BP 96/53
[2023-07-08 08:15] VITALS: PULSE 86
== END 2023-07-08 10:20 | disposition other institution (70) | DRG 947 ==
LOC: DL.ED 12:40 → DL.MS 16:00 → OBSVTOIN 07-04 10:32
PROVIDERS: ADMIT Internal Medicine; ATTEND Internal Medicine
DX: R53.1 Weakness (principal); G93.41 Metabolic encephalopathy; Z79.899 Other long term (current) drug therapy; B37.89 Other sites of candidiasis; Z90.49 Acquired absence of other specified parts of digestive tract; E87.1 Hypo-osmolality and hyponatremia; N39.0 Urinary tract infection, site not specified; I50.32 Chronic diastolic (congestive) heart failure; E72.20 Disorder of urea cycle metabolism, unspecified; K76.82 Hepatic encephalopathy; I48.91 Unspecified atrial fibrillation; K21.9 Gastro-esophageal reflux disease without esophagitis; K73.9 Chronic hepatitis, unspecified; D69.6 Thrombocytopenia, unspecified; R53.81 Other malaise; D53.9 Nutritional anemia, unspecified; R73.9 Hyperglycemia, unspecified; E80.6 Other disorders of bilirubin metabolism; E88.09 Other disorders of plasma-protein metabolism, not elsewhere classified; S61.402A Unspecified open wound of left hand, initial encounter; R60.0 Localized edema; F03.90 Unspecified dementia, unspecified severity, without behavioral disturbance, psychotic disturbance, mood disturbance, and anxiety; N40.1 Benign prostatic hyperplasia with lower urinary tract symptoms; E66.9 Obesity, unspecified; R35.0 Frequency of micturition; B95.2 Enterococcus as the cause of diseases classified elsewhere; N39.41 Urge incontinence; R35.1 Nocturia; Z86.16 Personal history of COVID-19; Z68.30 Body mass index [BMI] 30.0-30.9, adult; Z98.42 Cataract extraction status, left eye; Z98.41 Cataract extraction status, right eye; Z87.442 Personal history of urinary calculi; X58.XXXA Exposure to other specified factors, initial encounter; Y92.89 Other specified places as the place of occurrence of the external cause
CPT/HCPCS: 36415 ×2; 51798; 71045; 73502; 80053 ×2; 81001; 82140; 82306; 83036; 83735 ×2; 83880; 84484; 85025 ×2; 86140; 87086; 87088; 87186; 93005; 93010; 96374; 99284; 99285; A9270 ×8; J0696 ×2; J1940; J7030; J7500 ×2; 96361; 96375; 96376; 97110-GP; 97161-GP; 97166-GO; 97530-GO; 97530-GP; 99223; 99232; 99238; G0378; J0744

== ENCOUNTER 2023-08-04 12:25 | Inpatient (IN) | payer MEDICARE, MEDICAID ==
[2023-08-04 13:24] LABS: HEMATOCRIT 33.2 % (40.0-54.0); MEAN CORPUSCULAR HEMOGLOBIN 40.7 pg (27.0-34.0); MEAN CORPUSCULAR HGB CONC 36.1 g/dL (33.0-35.0); MEAN CORPUSCULAR VOLUME 112.5 fL (80-100); PLATELET COUNT,PLT 72 10^3/uL (150-450); RED BLOOD CELL COUNT 2.95 10^6/uL (4.6-6.2); WHITE BLOOD CELL COUNT,WBC 4.3 10^3/uL (5.0-10.0)
[2023-08-04 13:27] LABS: BASOPHILS PERCENT AUTO 0.7 % (0.0-1.0); EOSINOPHILS PERCENT AUTO 3.3 % (1.0-3.0); LYMPHOCYTES PERCENT AUTO 23.1 % (20.5-50.1); MONOCYTES PERCENT AUTO 11.7 % (2-8); NEUTROPHILS PERCENT AUTO 61.2 % (42.2-75.2)
[2023-08-04 13:40] LABS: EOSINOPHILS PERCENT MAN 2 % (1-3); LYMPHOCYTES PERCENT MAN 23 % (20-50); MONOCYTES PERCENT MAN 8 % (2-8); SEG NEUTROPHILS PERCENT MAN 67 % (42-75)
[2023-08-04 13:45] LABS: A/G RATIO 0.89; ALANINE AMINOTRANSFERASE,ALT 23 U/L (16-63); ALBUMIN 2.5 g/dL (3.4-5.0); ALKALINE PHOSPHATASE 141 U/L (46-116); ANION GAP 11.6 mEq/L (7-13); ASPARTATE AMNIOTRANSFERASE,AST 33 U/L (15-37); BILIRUBIN TOTAL 5.1 mg/dL (0.2-1.0); BLOOD UREA NITROGEN,BUN 24 mg/dL (7-18); BUN/CREATININE RATIO 25.3 (No establ ref range); CALCIUM 8.2 mg/dL (8.5-10.1); CARBON DIOXIDE,CO2 28 mmol/L (21-32); CHLORIDE,CL 96 mmol/L (98-107); CREATININE 0.95 mg/dL (0.70-1.30); ESTIMATED GFR 78 mL/min (>=60); GLUCOSE RANDOM 267 mg/dL (70-99); POTASSIUM,K 4.6 mmol/L (3.5-5.1); PROTEIN TOTAL,TP 5.3 g/dL (6.4-8.2); SODIUM,NA 131 mmol/L (136-145)
[2023-08-04 14:18] LABS: APPEARANCE,URINE TURBID (CLEAR); BILIRUBIN,URINE SMALL (NEGATIVE); COLOR,URINE DARK YELLOW (YELLOW); GLUCOSE,URINE 500 (NEGATIVE); KETONES,URINE NEGATIVE (NEGATIVE); LEUKOCYTE ESTERASE,URINE LARGE (NEGATIVE); NITRITE,URINE NEGATIVE (NEGATIVE); OCCULT BLOOD,URINE MODERATE (NEGATIVE); PH,URINE 6.5 (5.0-9.0); PROTEIN,URINE 30 (NEGATIVE); UROBILINOGEN,URINE >=8.0 mg/dL (0.2-1.0)
[2023-08-04 14:26] LABS: WBC,URINE >100 /HPF (0-5/HPF)
[2023-08-04 14:27] LABS: BACTERIA,URINE MANY /HPF (0-FEW/HPF); EPITHELIAL CELLS,URINE MODERATE /HPF (NOT SEEN)
[2023-08-04] MEDS: cefTRIAXone 1 GM Vial IVPUSH ONE (15:20)
[2023-08-04] MEDS ORDERED: Albuterol/Ipratropium 3.0-0.5 MG/3 ML Neb Soln NEB PRN (16:43)
[2023-08-04] MEDS ORDERED: Naloxone 2 MG/2 ML Syringe IVPUSH PRN (16:43)
[2023-08-04] MEDS ORDERED: Ondansetron 4 MG/2 ML SDV IVPUSH PRN (16:43)
[2023-08-04] MEDS: Midodrine 5 MG Tab PO SCH (20:59)
[2023-08-04] MEDS: traMADol 50 MG Tab PO PRN (21:00)
[2023-08-04] MEDS: Spironolactone 25 MG Tab PO SCH (21:00)
[2023-08-04] MEDS: Melatonin 3 MG Tab PO PRN (21:00)
[2023-08-04] MEDS: Lactulose Soln 10 GM/15 ML 30 ML UD Cup PO SCH (21:00)
[2023-08-04] MEDS: Sodium Chloride 0.9% 10 ML Syringe FLUSH SCH (21:05)
[2023-08-05] MEDS: Omeprazole 20 MG Cap.CR PO SCH (05:22)
[2023-08-05 06:31] LABS: BASOPHILS PERCENT AUTO 0.8 % (0.0-1.0); EOSINOPHILS PERCENT AUTO 5.3 % (1.0-3.0); HEMATOCRIT 31.8 % (40.0-54.0); HEMOGLOBIN 11.5 g/dL (14.0-18.0); LYMPHOCYTES PERCENT AUTO 29.9 % (20.5-50.1); MEAN CORPUSCULAR HEMOGLOBIN 40.8 pg (27.0-34.0); MEAN CORPUSCULAR HGB CONC 36.2 g/dL (33.0-35.0); MEAN CORPUSCULAR VOLUME 112.8 fL (80-100); MONOCYTES PERCENT AUTO 14.2 % (2-8); NEUTROPHILS PERCENT AUTO 49.8 % (42.2-75.2); PLATELET COUNT,PLT 66 10^3/uL (150-450); RED BLOOD CELL COUNT 2.82 10^6/uL (4.6-6.2); WHITE BLOOD CELL COUNT,WBC 3.6 10^3/uL (5.0-10.0)
[2023-08-05 06:49] LABS: A/G RATIO 0.88; ALBUMIN 2.3 g/dL (3.4-5.0); ANION GAP 10.3 mEq/L (7-13); BILIRUBIN TOTAL 4.8 mg/dL (0.2-1.0); BUN/CREATININE RATIO 23.8 (No establ ref range); CALCIUM 8.1 mg/dL (8.5-10.1); CREATININE 0.8 mg/dL (0.70-1.30); EST CRCL DRUG DOSING (CG) 72.75 mL/min; MAGNESIUM 1.7 mg/dL (1.8-2.4); POTASSIUM,K 4.3 mmol/L (3.5-5.1); PROTEIN TOTAL,TP 4.9 g/dL (6.4-8.2)
[2023-08-05] MEDS: Magnesium Sulfate/Water 2 GM in Premix Bag 1 BAG IV ONE (09:35)
[2023-08-05] MEDS: Digoxin 125 MCG Tab PO SCH (09:41)
[2023-08-05] MEDS: Furosemide 40 MG Tab PO SCH (09:41)
[2023-08-05] MEDS: Tamsulosin 0.4 MG Cap.ER PO SCH (09:42)
[2023-08-05] MEDS: cefTRIAXone 1 GM Vial IVPUSH SCH (09:42)
[2023-08-05] MEDS: Midodrine 5 MG Tab PO SCH (17:10)
[2023-08-05] MEDS: Ziprasidone Mesylate 20 MG Vial IM PRN (23:15)
[2023-08-06 06:28] LABS: HEMATOCRIT 30.5 % (40.0-54.0); MEAN CORPUSCULAR HEMOGLOBIN 40.3 pg (27.0-34.0); MEAN CORPUSCULAR HGB CONC 36.1 g/dL (33.0-35.0); MEAN CORPUSCULAR VOLUME 111.7 fL (80-100); PLATELET COUNT,PLT 68 10^3/uL (150-450); RED BLOOD CELL COUNT 2.73 10^6/uL (4.6-6.2); WHITE BLOOD CELL COUNT,WBC 4.3 10^3/uL (5.0-10.0)
[2023-08-06 06:45] LABS: BASOPHILS PERCENT AUTO 0.7 % (0.0-1.0); LYMPHOCYTES PERCENT AUTO 23.5 % (20.5-50.1); MONOCYTES PERCENT AUTO 11.2 % (2-8); NEUTROPHILS PERCENT AUTO 61.6 % (42.2-75.2)
[2023-08-06 07:06] LABS: ALBUMIN 2.5 g/dL (3.4-5.0); ANION GAP 11.1 mEq/L (7-13); BILIRUBIN TOTAL 5.1 mg/dL (0.2-1.0); BUN/CREATININE RATIO 14.3 (No establ ref range); CALCIUM 8.1 mg/dL (8.5-10.1); CREATININE 0.98 mg/dL (0.70-1.30); EST CRCL DRUG DOSING (CG) 59.39 mL/min; POTASSIUM,K 4.1 mmol/L (3.5-5.1); PROTEIN TOTAL,TP 5.4 g/dL (6.4-8.2)
[2023-08-06 07:09] LABS: BAND PERCENT MAN 3 %; EOSINOPHILS PERCENT MAN 1 % (1-3); LYMPHOCYTES PERCENT MAN 31 % (20-50); MONOCYTES PERCENT MAN 11 % (2-8); SEG NEUTROPHILS PERCENT MAN 54 % (42-75)
[2023-08-06 07:13] LABS: A/G RATIO 0.86
[2023-08-06] MEDS: Acetaminophen 325 MG Tab PO PRN (08:36)
[2023-08-06] MEDS: Lactulose Soln 10 GM/15 ML 30 ML UD Cup PO SCH (20:21)
[2023-08-07 06:54] LABS: BASOPHILS PERCENT AUTO 1.3 % (0.0-1.0); HEMATOCRIT 34.9 % (40.0-54.0); HEMOGLOBIN 12.5 g/dL (14.0-18.0); LYMPHOCYTES PERCENT AUTO 26.5 % (20.5-50.1); MEAN CORPUSCULAR HEMOGLOBIN 40.3 pg (27.0-34.0); MEAN CORPUSCULAR HGB CONC 35.8 g/dL (33.0-35.0); MEAN CORPUSCULAR VOLUME 112.6 fL (80-100); MONOCYTES PERCENT AUTO 12.5 % (2-8); NEUTROPHILS PERCENT AUTO 54.7 % (42.2-75.2); PLATELET COUNT,PLT 74 10^3/uL (150-450)
[2023-08-07 07:19] LABS: A/G RATIO 0.82; ALBUMIN 2.3 g/dL (3.4-5.0); ANION GAP 10.2 mEq/L (7-13); BILIRUBIN TOTAL 5.6 mg/dL (0.2-1.0); BUN/CREATININE RATIO 16.9 (No establ ref range); CALCIUM 7.9 mg/dL (8.5-10.1); CREATININE 0.89 mg/dL (0.70-1.30); EST CRCL DRUG DOSING (CG) 65.39 mL/min; MAGNESIUM 1.6 mg/dL (1.8-2.4); POTASSIUM,K 4.2 mmol/L (3.5-5.1); PROTEIN TOTAL,TP 5.1 g/dL (6.4-8.2)
[2023-08-07] MEDS: Magnesium Sulfate/Water 2 GM in Premix Bag 1 BAG IV ONE (08:13)
[2023-08-07] MEDS: Sodium Chloride 0.9% 10 ML Syringe FLUSH PRN (08:23)
[2023-08-07] MEDS: Magnesium Oxide 400 MG Tab PO SCH (17:11)
[2023-08-07] MEDS: Ciprofloxacin in D5W 200 MG in Premix Bag 1 BAG IV SCH (21:28)
[2023-08-08 07:24] LABS: ALBUMIN 2.2 g/dL (3.4-5.0); ANION GAP 11.8 mEq/L (7-13); BILIRUBIN TOTAL 5.4 mg/dL (0.2-1.0); BUN/CREATININE RATIO 18.8 (No establ ref range); CALCIUM 7.9 mg/dL (8.5-10.1); CREATININE 0.85 mg/dL (0.70-1.30); EST CRCL DRUG DOSING (CG) 68.47 mL/min; MAGNESIUM 1.7 mg/dL (1.8-2.4); POTASSIUM,K 4.8 mmol/L (3.5-5.1)
[2023-08-08 07:29] LABS: A/G RATIO 0.79
[2023-08-08 08:23] LABS: BASOPHILS PERCENT AUTO 0.6 % (0.0-1.0); EOSINOPHILS PERCENT AUTO 4.1 % (1.0-3.0); HEMATOCRIT 33.5 % (40.0-54.0); HEMOGLOBIN 11.9 g/dL (14.0-18.0); LYMPHOCYTES PERCENT AUTO 25.8 % (20.5-50.1); MEAN CORPUSCULAR HEMOGLOBIN 40.2 pg (27.0-34.0); MEAN CORPUSCULAR HGB CONC 35.5 g/dL (33.0-35.0); MEAN CORPUSCULAR VOLUME 113.2 fL (80-100); MONOCYTES PERCENT AUTO 10.9 % (2-8); NEUTROPHILS PERCENT AUTO 58.6 % (42.2-75.2); PLATELET COUNT,PLT 67 10^3/uL (150-450); RED BLOOD CELL COUNT 2.96 10^6/uL (4.6-6.2); WHITE BLOOD CELL COUNT,WBC 4.7 10^3/uL (5.0-10.0)
[2023-08-08] MEDS: Ciprofloxacin in D5W 200 MG in Premix Bag 1 BAG IV SCH (08:55)
[2023-08-09] MEDS: Saccharomyces Boulardii (Probiotic) 250 MG Cap PO SCH (20:52)
[2023-08-10] MEDS: HYDROmorphone 0.5 MG/0.5 ML Syringe IVPUSH PRN (01:49)
[2023-08-11 10:09] VITALS: BP 109/49; PULSE 93
== END 2023-08-11 10:47 | DRG 441 ==
LOC: DL.ED 12:25 → DL.MS 16:22
PROVIDERS: ADMIT Internal Medicine; ATTEND Internal Medicine
DX: K76.82 Hepatic encephalopathy (principal); G93.41 Metabolic encephalopathy; D84.9 Immunodeficiency, unspecified; N39.0 Urinary tract infection, site not specified; I50.30 Unspecified diastolic (congestive) heart failure; E87.1 Hypo-osmolality and hyponatremia; E72.20 Disorder of urea cycle metabolism, unspecified; I48.91 Unspecified atrial fibrillation; K72.10 Chronic hepatic failure without coma; K21.9 Gastro-esophageal reflux disease without esophagitis; Z51.5 Encounter for palliative care; Z66 Do not resuscitate; E66.9 Obesity, unspecified; N40.1 Benign prostatic hyperplasia with lower urinary tract symptoms; N39.498 Other specified urinary incontinence; D69.6 Thrombocytopenia, unspecified; I95.9 Hypotension, unspecified; R29.6 Repeated falls; E11.65 Type 2 diabetes mellitus with hyperglycemia; E87.8 Other disorders of electrolyte and fluid balance, not elsewhere classified; K74.60 Unspecified cirrhosis of liver; F03.90 Unspecified dementia, unspecified severity, without behavioral disturbance, psychotic disturbance, mood disturbance, and anxiety; Z86.16 Personal history of COVID-19; Z90.49 Acquired absence of other specified parts of digestive tract; Z98.49 Cataract extraction status, unspecified eye; Z79.899 Other long term (current) drug therapy; Z68.24 Body mass index [BMI] 24.0-24.9, adult
CPT/HCPCS: 36415; 70450; 80053; 81001; 82140; 83735; 83880; 85025; 87086; 87088; 87186; 93005; 93010; 99223; 99232; 99233; A9270-GY; J0696; J0744; J1170; J3475; J3486; J3490; J7500